=== PATIENT | male | born 1950 | race Caucasian/White ===

== ENCOUNTER 2023-03-10 11:47 | Inpatient (IN) | payer MEDICARE, SELFPAY ==
--- NOTE | ~2023-03-10 | MR_ITS ---
EXAMINATION: MR THORACIC SPINE WITHOUT CONTRAST CLINICAL INFORMATION: Lower extremity rigidity. COMPARISON: None available. TECHNIQUE: MRI of the thoracic spine was obtained using routine sequences without contrast. FINDINGS: The thoracic vertebral bodies demonstrate normal heights and alignment. No compression fractures seen. There is multilevel intervertebral disc height loss including severe disc height loss at T4-T5, T5-T6, T6-T7, and T7-T8. There is accentuation of the normal thoracic kyphosis at the T5-T6 level. No bone marrow edema is seen. The thoracic cord signal appears normal. A few small disc bulges and small disc herniations are noted but none of which results in significant narrowing of the spinal canal. The neural foramina are patent. Several small T2 hyperintense lesions are noted within the liver, presumably cysts. A small splenic cyst is also noted. MR/MR thoracic spine wo con IMPRESSION: No significant narrowing of the spinal canal or neural foramina. No cord signal abnormality. Multilevel intervertebral disc height loss with accentuation of the normal thoracic kyphosis.
--- NOTE | ~2023-03-10 | XR_ITS ---
EXAMINATION: XR CHEST CLINICAL INFORMATION: Pain COMPARISON: None available. TECHNIQUE: 2 views of the chest were obtained. FINDINGS: No significant abnormality is noted involving the heart, lungs, mediastinum, bony thorax or soft tissues. XR/XR chest 2V IMPRESSION: Unremarkable examination.
--- NOTE | ~2023-03-10 | US_ITS ---
EXAMINATION: US ABDOMEN LIMITED CLINICAL INFORMATION: Severe epigastric pain and tenderness. COMPARISON: None available. TECHNIQUE: Real-time imaging of the right upper quadrant abdominal viscera. FINDINGS: PANCREAS: Normal. LIVER: Liver has normal size and contour. 1.4 cm liver cyst has thin septation (image 19). A few other cysts are detected, including 1.4 cm cyst in the superior right lobe. No suspicious lesions. Color Doppler images show normal flow direction within the main portal vein.. GALLBLADDER: Normal. The gallbladder is physiologically distended without evidence of stones, sludge, polyps, wall thickening or pericholecystic fluid. COMMON DUCT: The visualized proximal common duct is 0.2 cm diameter. RIGHT KIDNEY: Normal. No hydronephrosis. No renal calculi or focal parenchymal lesions. The kidney measures 10.5 cm in maximum dimension. FREE FLUID: None. US/US abdomen limited IMPRESSION: * No acute sonographic abnormalities within the examined abdomen. * No evidence of cholelithiasis, cholecystitis or biliary tract obstruction. * Incidentally noted are a few benign hepatic cysts.
--- NOTE | ~2023-03-10 | NM_ITS ---
Exercise Myocardial perfusion study Indication: Chest pain to evaluate for myocardial ischemia Technique: The patient was brought in for an exercise perfusion study on 03/20/2023. Patient performed exercise as per Jose Martin protocol and was injected 25 mCi of sestamibi was given intravenously one target HR was achieved. Images were obtained using the SPECT gamma camera interlaced with the gating device. Images were obtained in supine position. Resting perfusion study was performed on 03/19/2023. Patient was administered 25 mCi of sestamibi intravenously at rest. Images were then obtained in supine position. Images obtained with and without CT attenuation. Total DLP 76 mGy-cm. Images were processed with the software and compared side to side in short axis, horizontal long axis and vertical long axis views. Findings: The stress perfusion study showed non attenuated images show mildly reduced uptake in the basal and mid inferior wall of the LV myocardium. Remainder of the LV myocardium is normally perfused. Attenuation corrected images show minimally reduced uptake in the distal anterior wall of the LV myocardium otherwise normal perfusion.. The gated study shows normal LV systolic function with calculated LVEF of 51%. LV cavity is normal in size. The gated study shows normal systolic wall thickening and contraction of all segments. There is no transient ischemic dilation. Resting study shows intense subdiaphragmatic uptake interfering with inferior wall uptake reducing the specificity of this study. Non attenuated images show normal uptake of radiotracer in all segments of LV myocardium but could be were compensated by subdiaphragmatic uptake. Attenuation corrected images show mildly reduced uptake in the inferoseptal and septal wall of the LV myocardium as well as the apex. Gating at rest reveals normal systolic wall motion with ejection fraction at 49%. The findings are consistent with likely normal myocardial perfusion. NM/NM michael perf SPECT rest & str Impression: 1. Likely normal myocardial perfusion 2. Gated LVEF is 51% 3. Transient ischemic dilatation not present Stress EKG is negative for ischemia
--- NOTE | ~2023-03-10 | MR_ITS ---
EXAMINATION: MR BRAIN AND CERVICAL SPINE WITHOUT AND WITH CONTRAST CLINICAL INFORMATION: Paraparesis. Cognitive decline/parkinsonism. COMPARISON: None available. TECHNIQUE: Multiplanar, multisequence imaging of the brain an cervical spine was performed before and after the intravenous administration of 6 mL of Gadavist. FINDINGS: MR brain: There is no acute infarction, mass, hemorrhage, or extra-axial collection. No abnormal or unexpected intracranial enhancement is seen. The ventricles, sulci, and basilar cisterns are normal in size and configuration. No unexpected brain parenchymal volume loss is seen. The basal ganglia, thalami, and brainstem appear normal. The flow voids of the major intracranial arteries appear intact. The bones and extracranial soft tissues are within normal limits. A subperiosteal lipoma is seen along the right frontal scalp. Cervical spine: The cervical vertebral bodies maintain normal heights and alignment. There is multilevel intervertebral disc height loss. Mild degree of endplate edema is seen at C4-C5 the cervical cord signal appears normal. No abnormal enhancement is seen within the cervical canal. C2-C3: Disc osteophyte complex. No spinal canal or neural foraminal stenosis. C3-C4: Disc osteophyte complex with uncovertebral hypertrophy resulting in mild to moderate spinal canal stenosis and severe bilateral neural foraminal stenosis. C4-C5: Disc osteophyte complex with uncovertebral hypertrophy. Mild to moderate right neural foraminal stenosis. No spinal canal stenosis. C5-C6: Mild disc osteophyte complex with left uncovertebral hypertrophy resulting in severe left neural foraminal stenosis. No spinal canal stenosis. C6-C7: Disc osteophyte complex with right uncovertebral hypertrophy resulting in severe right and mild to moderate left neural foraminal stenosis. C7-T1: Moderate to severe right facet arthropathy. No significant spinal canal or neural foraminal stenosis. MR/MR cervical spine wo/w con IMPRESSION: 1. No intracranial abnormality identified. No unexpected brain parenchymal volume loss. No abnormal enhancement. 2. Multilevel degenerative spondylotic changes resulting in varying degrees of spinal canal and neural foraminal stenosis. Spinal canal stenosis appears mild to moderate at C3-C4. Neural foraminal stenosis is severe bilaterally at C3-C4, severe on the left at C5-C6, and severe on the right at C6-C7.
--- NOTE | ~2023-03-10 | CT_ITS ---
EXAMINATION: CT HEAD WITHOUT CONTRAST CLINICAL INFORMATION: Failure to thrive. Weakness. COMPARISON: None available. TECHNIQUE: Contiguous axial imaging was performed from the skull base to vertex without intravenous administration of contrast. This CT examination was performed using dose optimization techniques as appropriate, variously including the following: *Automated exposure control *Adjustment of mA and/or kV according to patient size (this includes techniques or standardized protocols for targeted exams where dose is matched to indication/reason for exam; i.e. extremities or head) *Use of iterative reconstruction technique DLP: 680 mGy-cm FINDINGS: There is no evidence for an extra-axial collection. There is no evidence for intra-or extra-axial hemorrhage. The ventricles and extra-axial CSF spaces are appropriate. Mustafa-white matter differentiation is normal. No mass, mass effect or infarct is seen. Review of bone windows is normal. Visualized paranasal sinuses, mastoid air cells and middle ears are clear. CT/CT head/brain wo IV con Impression: Normal nonenhanced head CT
[2023-03-10 11:54] VITALS: BP 159/93; PULSE 84; O2SAT 98; BMI 20.1
--- NOTE | 2023-03-10 12:05 | PC.NURSE ---
Patient reports fell x 2 this morning because he was weak and dizzy. denies loc or headstrike. Patient reports that he has lost 30lbs in the last 6 months because he has no appetite d/t abdominal pain. Patient denies SI but states cant keep living with this pain. Denies vomiting but states that he always feels nauseous and when he gets anxious his abdominal pain gets worse.
[2023-03-10 12:07] VITALS: BP 163/86; PULSE 73; PULSE 74; RESP 18; TEMP 37.4
--- NOTE | 2023-03-10 12:30 | ED_ITS ---
HPI - General Adult General Chief complaint: Failure to Thrive Stated complaint: SOB PER EMS Time Seen by Provider: 03/10/23 11:53 Source: patient Mode of arrival: EMS Limitations: no limitations History of Present Illness HPI narrative: patient is a 72-year-old male presents emergency department via EMS for evaluation. His daughter is present at bedside who confirms a majority of the history. When asked patient states he is having epigastric pain that is unbearable and he can take it anymore, it appears very anxious surrounding this. Daughter reports that over the past 3-6 months he has been having poor appetite, minimal oral intake, reported epigastric pain that results in severe anxiety and obsessiveness over this pain. Two months ago he was started on Remeron from the primary care provider, unclear whether this was for appetite stimulation verses ? Dementia, they are awaiting a referral to Neurology. Daughter reports that 1 week ago they were evaluated at [facility] for their concerns around the epigastric pain nausea and anxiety. She reports that he had labs any urine done without any abnormal findings, a CT of the abdomen and pelvis without abnormal findings. He received IV fluids and Zofran with some relief and was discharged home with prescription for Ativan and Zofran. She states that he had a follow-up visit with primary care provider this past Sunday03/05/2023 who advised that patient stop taking the Ativan (despite mild improvement in symptoms on this) his Remeron was discontinued and he was started on Celexa at 10 mg daily. Daughter reports that it is becoming very difficult for herself and her mother to care for him at home due to his overwhelming anxiety and persistent reports of pain. Patient is unable to do much else aside from report pain. Daughter states he has been having generalized weakness, today while walking his legs were feeling weak and he fell onto his knees and lower in himself to the floor. This was witnessed by the daughter and there was no head strike or loss of consciousness. It is difficult to obtain much more history or accurate review of symptoms from patient as he is only fixated on his epigastric pain and anxiety, when asked he denies any SI/HI, drug or alcohol usage Related Data Allergies Allergy/AdvReac Type Severity Reaction Status Date / Time No Known Allergies Allergy Verified 03/10/23 11:57 Review of Systems 2 Review of Systems: Yes all other systems are reviewed and are negative PMFSH Past Medical History Attestation statement: The following information was validated with the patient. Source: old records reviewed Social History Social History Alcohol intake: never Smoked in Last 30 Days: No Use of substances other than those prescribed or required for medical reasons: No Advance Directives: No Advance Directives Information Provided: No Physical Exam ED Vital Signs: Vital Signs - 24 hr 03/10/23 12:07 03/10/23 14:54 03/10/23 15:19 Temperature 99.4 F 97.8 F Pulse Rate 73 78 78 Respiratory Rate 18 18 15 Blood Pressure 163/86 H 171/96 H 184/95 H Pulse Oximetry 98 97 Oxygen Delivery Method Room Air Room Air BMI result Body Mass Index 20.1 Appearance: Alert.?Oriented to person, place and time. No acute distress.?Normal affect. Eyes: Pupils equal, round and reactive to light.? ENT: Pharynx normal.?? Neck: Normal inspection.? Neck supple.?? CVS: Heart sounds normal. Normal heart rate and rhythm.? Pulses normal.?? Respiratory: No respiratory distress.? Lung sounds clear to auscultation bilaterally?? Abdomen: Soft with epigastric tenderness upon palpation Normoactive bowel sounds. No pulsatile mass.?? Skin: Skin warm and dry.? Normal skin color.? Extremities: No lower extremity edema.? No calf ttp? Neuro: Moves all extremities spontaneously. Sensation intact bilaterally. CN II- XII intact. No focal neuro deficits. Course Reevaluation(s) Reevaluation #1: CBC is without leukocytosis left shift or anemia. CMP is overall unremarkable, lipase within normal limits. COVID- 19 and influenza testing are negative . Chest x-ray without evidence of acute cardiopulmonary process. Ultrasound of the right upper quadrant without evidence of acute cholecystitis cholelithiasis explanation for pain. Head CT is pending at this time. Symptoms unrelieved with GI cocktail. Will trial oral lorazepam Time: 14:47 Reevaluation #2: patient signed out to Danyell DIAZ pending CT head, urinalysis, and re- evaluation, Job spoke with patient and his daughter at length, he will likely require PT/ case management evaluation due to weakness an adult failure to thrive for safe disposition. Time: 15:32 Medications Administered Discontinued Medications Generic Name Dose Route Start Last Admin Trade Name Freq PRN Reason Stop Dose Admin Al Hydroxide/Mg Hydroxide 30 ml 03/10/23 12:58 03/10/23 13:05 Magnesium Hydrox/Alum Hydrox 30 Ml Oral.Susp PO 03/10/23 12:59 30 ml ONCE ONE Administration Famotidine 20 mg 03/10/23 12:58 03/10/23 13:05 Famotidine 20 Mg Tablet PO 03/10/23 12:59 20 mg ONCE ONE Administration Lidocaine HCl 15 ml 03/10/23 12:58 03/10/23 13:05 Lidocaine Hcl Viscous 2 % 15 Ml Solution MUCOUS MEM 03/10/23 12:59 15 ml ONCE ONE Administration Lorazepam 1 mg 03/10/23 14:53 03/10/23 15:06 Lorazepam 1 Mg Tablet PO 03/10/23 14:54 1 mg ONCE ONE Administration Medical Decision Making Medical Decision Making MDM Narrative: Patient is a 72-year-old male with past medical history of hypertension, allergic rhinitis, hyperlipidemia, presenting to emergency department via EMS with his daughter for evaluation of epigastric pain and severe anxiety in addition to decreased appetite and unintentional weight loss of 30 lb over the past 6 months. It is difficult to obtain history review of systems for patient, he is fixated on anxiety and epigastric pain. Upon physical examination he does have tenderness over the epigastrium, negative Botello sign. Per daughter's report CT of the abdomen and pelvis was obtained at [facility] with the use of IV contrast without acute abnormal findings. Attempting to obtain records from that visit at this time. Reviewed plan of care with patient, given weakness, near fall today, persistent symptoms will repeat labs, urinalysis, ultrasound of the right upper quadrant to evaluate for cholecystitis/cholelithiasis, will trial GI cocktail prior to administration of anxiolytics and reassess. I had an at length discussion with his daughter as she states ?we can not take it anymore we can take care of him at home?. We discussed indications for hospital admission, versus referral to Case Management/Physical therapy and possible ST are versus LTC. Differential Diagnosis Differential Diagnoses: The differential diagnosis associated with the presentation includes (Anxiety, gastritis, PUD, cholecystitis, cholelithiasis, less likely pancreatitis/diverticulitis/enteritis/obstruction/genitourinary etiology) Admission/Observation Consideration of admission/observation: Escalation of care including admission/observation considered (Considered admission for abdominal pain, see narrative above in course narrative for further detail.) Lab Data MDM Lab Attestation statement: I reviewed the patient's lab results. (See course narrative for further detail) 03/10/23 13:52 03/10/23 13:52 Labs: Lab Results 03/10/23 03/10/23 03/10/23 Range/Units 12:26 13:52 14:55 WBC 6.4 (4.8-10.8) X10*3/uL RBC 5.06 (4.60-5.80) X10*6/uL Hgb 15.1 (14.0-18.0) g/dl Hct 43.6 (42.0-52.0) % MCV 86.2 (80.0-98.0) fL MCH 29.8 (27.0-33.0) pg MCHC 34.6 (31.0-36.0) g/dl RDW 12.9 (11.0-16.0) % Plt Count 219 (160-400) X10*3/uL MPV 8.9 L (9.4-12.4) fL Immature Gran % (Auto) 0.3 (0.0-0.4) % Neut % (Auto) 71.0 (45-73) % Lymph % (Auto) 16.7 L (20-40) % Pettis % (Auto) 11.5 H (2-11) % Eos % (Auto) 0.2 (0-4) % Baso % (Auto) 0.3 (0-2) % Lymph # (Auto) 1.1 L (1.2-4.9) X10*3/uL Pettis # (Auto) 0.7 (0.1-1.2) X10*3/uL Eos # (Auto) 0.0 (0.0-0.4) X10*3/uL Baso # (Auto) 0.0 (0.0-0.2) X10*3/uL Abs Immat Gran (auto) 0.02 (0.00-0.03) X10*3/uL Absolute Neuts (auto) 4.6 (2.0-8.3) x10*3/uL Absolute Nucleated RBC 0.000 (0.0-0.012) X10*3/uL Nucleated RBC % (auto) 0.0 (0.0-0.2) /100WBC PT 11.9 (11.1-13.3) SEC INR 1.0 (0.9-1.1) Sodium 139 (135-145) mmol/L Potassium 3.9 (3.3-5.1) mmol/L Chloride 102 (96-108) mmol/L Carbon Dioxide 28 (22-29) mmol/L Anion Gap 13 (12-20) BUN 17 H (9-16) mg/dL Creatinine 0.98 (0.5-1.4) mg/dL Estim Creat Clear Calc 58.5 Estimated GFR > 60 Random Glucose 109 (60-115) mg/dL Calcium 9.6 (8.4-10.2) mg/dL Magnesium 2.3 (1.6-2.6) mg/dL Total Bilirubin 0.6 (0.0-1.0) mg/dL AST 18 (5-37) U/L ALT 12 (0-40) U/L Alkaline Phosphatase 60 (39-117) U/L Troponin I High Sens 2.7 (<3.5-35.0) ng/L B-Natriuretic Peptide Cancelled Total Protein 7.1 (6.5-8.0) g/dL Albumin 4.4 (3.5-5.0) g/dL Lipase 16 (8-78) U/L Urine Color Yellow Urine Appearance Clear Urine pH 6.0 (5.0-9.0) Ur Specific Sam[place] 1.025 (1.005-1.025) Urine Protein Negative (Neg-Trace) mg/dL Urine Glucose (UA) Negative (Negative) mg/dL Urine Ketones 15 (Negative) mg/dL Urine Blood Negative (Negative) Urine Nitrite Negative (Negative) Ur Leukocyte Esterase Negative (Negative) COVID-19 (DELIA) Negative (Negative) COVID-19 Clin Com See Note Influenza Type A (SIXTO) Negative (Negative) Influenza Type B (SIXTO) Negative (Negative) Influenza A & B Note See Note Independent Interpretation I performed an independent interpretation of an: Ultrasound Radiology Impression Discussion of test interpretation with radiology: I have reviewed the radiologist's reading. Radiologist Impression: XR/XR chest 2V IMPRESSION: Unremarkable examination. abdominal ultrasound is without acute sonographic abnormality no evidence of cholecystitis or cholelithiasis, incidental benign hepatic cysts, no clear explanation for epigastric pain. Independent Historian Clinical information obtained from an independent historian. History obtained from or confirmed by: EMS and Other (Daughter present at bedside who confirms history) Tests considered The following testing was considered but not selected: Considered CT abdomen and pelvis, imaging obtained 1 week ago at outside hospital, currently with no acute changes in symptoms , CT imaging deferred at this time Discharge Plan Discharge Clinical Impression: Anxiety, Abdominal pain, epigastric, Adult failure to thrive Patient Disposition: Still a Patient
[2023-03-10 12:47] LABS: COVID-19 Test Negative (Negative); IDNOW Serial# 08D9AD1C
[2023-03-10 12:48] LABS: IDNOW Serial# BCCEAD1C; Influenza A Negative (Negative); Influenza B2 Negative (Negative)
[2023-03-10] MEDS: Famotidine 20 MG TABLET PO (13:05)
[2023-03-10] MEDS: Magnesium Hydrox/Alum Hydrox 30 ML ORAL.SUSP PO (13:05)
[2023-03-10] MEDS: Lidocaine HCl Viscous 2 % 15 ML SOLUTION MUCOUS MEM (13:05)
[2023-03-10 13:56] LABS: MANUAL DIFF FLAG NO
[2023-03-10 13:57] LABS: Basophils Percent Auto 0.3 % (0-2); Eosinophils Percent Auto 0.2 % (0-4); Hematocrit 43.6 % (42.0-52.0); Hemoglobin 15.1 g/dl (14.0-18.0); Imm Gran Abs Auto 0.02 X10*3/uL (0.00-0.03); Imm Gran Pct Auto 0.3 % (0.0-0.4); Lymphocytes Absolute Auto 1.1 X10*3/uL (1.2-4.9); Lymphocytes Percent Auto 16.7 % (20-40); Mean Corpuscular HGB Conc 34.6 g/dl (31.0-36.0); Mean Corpuscular Hemoglobin 29.8 pg (27.0-33.0); Mean Corpuscular Volume 86.2 fL (80.0-98.0); Mean Platelet Volume 8.9 fL (9.4-12.4); Monocytes Absolute Auto 0.7 X10*3/uL (0.1-1.2); Monocytes Percent Auto 11.5 % (2-11); Neutrophils Absolute Auto 4.6 x10*3/uL (2.0-8.3); Platelet Count 219 X10*3/uL (160-400); Red Blood Count 5.06 X10*6/uL (4.60-5.80); Red Cell Distribution Width 12.9 % (11.0-16.0); White Blood Count 6.4 X10*3/uL (4.8-10.8)
[2023-03-10 14:09] LABS: Prothrombin Time 11.9 SEC (11.1-13.3)
[2023-03-10 14:17] LABS: Alanine Aminotransferase 12 U/L (0-40); Albumin Level 4.4 g/dL (3.5-5.0); Alkaline Phosphatase 60 U/L (39-117); Anion Gap 13 (12-20); Aspartate Amino Transferase 18 U/L (5-37); Bilirubin Total 0.6 mg/dL (0.0-1.0); Blood Urea Nitrogen 17 mg/dL (9-16); Calcium 9.6 mg/dL (8.4-10.2); Carbon Dioxide 28 mmol/L (22-29); Chloride 102 mmol/L (96-108); Creatinine Clr Calc Pharmacy 58.5; Estimated Glomerular Filt Rate > 60; Glucose Random 109 mg/dL (60-115); Lipase 16 U/L (8-78); Magnesium 2.3 mg/dL (1.6-2.6); Potassium 3.9 mmol/L (3.3-5.1); Sodium 139 mmol/L (135-145); Total Protein 7.1 g/dL (6.5-8.0)
--- NOTE | 2023-03-10 14:18 | PC.NURSE ---
Patient reports short term relief from oral medications for stomach pain however reports pain has now returned
--- NOTE | 2023-03-10 14:46 | PC.NURSE ---
Patient reports feeling sob , 98% on RA. Patient reports feeling anxious but unable to state what is causing the anxiety
--- NOTE | 2023-03-10 14:50 | ECG_ITS ---
Test Reason : CHEST PAIN Blood Pressure : / mmHG Vent. Rate : 089 BPM Atrial Rate : 089 BPM P-R Int : 154 ms QRS Dur : 096 ms QT Int : 384 ms P-R-T Axes : 061 -75 076 degrees QTc Int : 467 ms Normal sinus rhythm Incomplete right bundle branch block Left anterior fascicular block Abnormal ECG No previous ECGs available Referred By: Janene Mota Electronically Signed By:SHERON VARELA MD
[2023-03-10 14:54] VITALS: BP 171/96; PULSE 78; RESP 18; O2SAT 98
[2023-03-10 15:01] LABS: Appearance Urine Clear; Color Urine Yellow; Glucose Urine UA Negative (Negative); Leukocyte Esterase Urine Negative (Negative); Nitrite Urine Negative (Negative); Specific Gravity - Urine 1.025 (1.005-1.025); Urine Blood Negative (Negative); Urine Ketones 15 mg/dL (Negative); Urine Protein Negative (Neg-Trace)
[2023-03-10] MEDS: LORazepam 1 MG TABLET PO (15:06)
[2023-03-10 15:13] LABS: Troponin-I High Sensitivity 2.7 ng/L (<3.5-35.0)
[2023-03-10 15:19] VITALS: BP 184/95; PULSE 78; RESP 15; TEMP 36.6; O2SAT 97
--- NOTE | 2023-03-10 16:48 | PC.NURSE ---
Patient reports feels great states ativan made his stomach pain go away. Family at bedside
[2023-03-10 18:18] VITALS: BP 134/75; PULSE 80; RESP 16; TEMP 36.8; O2SAT 97
--- NOTE | 2023-03-10 18:45 | MHC.EDTECH ---
Dinner tray given
[2023-03-10 19:47] VITALS: BP 143/77; PULSE 79; RESP 18; TEMP 36.8; O2SAT 95
--- NOTE | 2023-03-10 19:50 | MHC.EDTECH ---
This tech took over care at 1900, hourly rounds and vitals completed,Belonging list completed and copy placed in chart. Ice water giving per request of patient. This tech called for a hospital bed awaiting arrival and call santacruz within reach.
--- NOTE | 2023-03-10 20:51 | MHC.EDTECH ---
Ambulated patient to bathroom urinated a moderate amount. pt has a steady gait. Hospital bed placed at this time for comfort. Patient is resting comfortably at this time and call noam thomas. Bed alarm set for safety
--- NOTE | 2023-03-10 22:34 | MHC.EDTECH ---
Assisted patient to bathroom with a steady gait,patient urinated and is requesting something to help him sleep. FELICIANO Ramírez made aware.
[2023-03-10] MEDS: hydrOXYzine HCL 25 MG TABLET PO (23:45)
--- NOTE | 2023-03-10 23:48 | PC.NURSE ---
Pt stating he was having difficulty with sleep. Discussed with provider and meds given per MAR.
--- NOTE | 2023-03-11 01:15 | PC.NURSE ---
Pt given meds per MAR for elevated BP, aware.
--- NOTE | 2023-03-11 01:55 | MHC.EDTECH ---
Hourly rounds completed,patient is sleeping at this time.
[2023-03-11] MEDS: Dicyclomine HCl 10 MG CAPSULE 20 MG PO (02:26)
[2023-03-11 04:00] VITALS: RESP 18
--- NOTE | 2023-03-11 04:10 | MHC.EDTECH ---
Hourly rounds completed,patient is sleeping at this time and call santacruz within reach.
[2023-03-11] MEDS: ondansetron HCL 4 MG/2 ML VIAL IVPUSH (04:57)
--- NOTE | 2023-03-11 07:28 | PHA.MEDREC ---
Pharmacy Consult ? Medication Reconciliation Pharmacy has reviewed the medication reconciliation completed by nursing.
[2023-03-11 07:34] VITALS: BP 150/85; PULSE 74; RESP 16; TEMP 37.2; O2SAT 96
--- NOTE | 2023-03-11 08:04 | PC.NURSE ---
pt is currently asleep, respirations even and unlabored
[2023-03-11 08:19] VITALS: O2SAT 96
--- NOTE | 2023-03-11 08:19 | PC.NURSE ---
Addendum entered by Sally Suqires 03/11/23 08:21: pt did not want to eat breakfast states he is not hungry Original Note: pt is alert and oriented, skin pwd, respirations even and unlabored, pt is reporting and pain as an dull ache and is requesting Ativan Ativan is the only thing that helps .
[2023-03-11 08:59] VITALS: BP 166/93; PULSE 82; RESP 18; O2SAT 96
[2023-03-11] MEDS: Metoprolol Tartrate 25 MG TABLET PO (09:00)
[2023-03-11] MEDS: Escitalopram Oxalate 5 MG TABLET PO (09:01)
--- NOTE | 2023-03-11 09:06 | PC.NURSE ---
pt;s and the pt reports that the is no longer taking the singular because his allergies cleared up, singular not given
--- NOTE | 2023-03-11 10:23 | MHC.CM.PN ---
CM RECEIVED ED CONSULT FROM PROVIDER. CM MET WITH PT AND AT BEDSIDE IN ED. PT LIVES WITH SPOUSE. DAUGHTERS ARE SUPPORTIVE. PT HAVING MORE DIFFICULTY WITH ADL'S AND MOBILITY DUE TO WEAKNESS AND SEVERE MELANCHOLY PER SPOUSE. A PSYCHIATRIC CONSULT WELL A P.T. CONSULT HAVE BEEN ORDERED. PER SPOUSE, PCP (DR. FIERRO WITH MOBILE) HAD ORDERED A CONSULT WITH [facility] IN THE [facility] BUT THEY ONLY CAME ONCE AND DID NOT FEEL THEY WERE RESPONSIVE. PT IS INDEPENDENT WITH MOBILITY AT BASELINE BUT EXPERIENCING FALLS OF LATE. + HCP DONE. PT ALERT AND ORIENTED X 3 AND ABLE TO MAKE NEEDS KNOWN. CM WILL CONTINUE TO FOLLOW FOR EVOLVING PLAN.
--- NOTE | 2023-03-11 10:53 | PC.NURSE ---
assumed care of this pt at 1000. pt brought over from er 3 accompanied by his at his bedside. no complaints at this time. will continue to observe.
[2023-03-11] MEDS: Ondansetron ODT 4 MG TAB.RAPDIS TRANSLINGU (12:08)
--- NOTE | 2023-03-11 12:45 | PC.NURSE ---
pt requested zofran for nausea. sublingual zofran given as document. will follow up.
[2023-03-11] MEDS: LORazepam 1 MG TABLET PO ×2 (13:09→23:58)
--- NOTE | 2023-03-11 13:10 | PC.NURSE ---
this ticket writer was called into room by pt family member in request for something for anxiety. Stating when he gets anxious he feels a phantom pain in his abdomen. Pt medicated with PRN ativan. Pt family member reporting he did not like atarax as it made him feel sleepy
--- NOTE | 2023-03-11 16:43 | MHC.EDTECH ---
brought patient a pitcher of ice.
--- NOTE | 2023-03-11 18:08 | PC.NURSE ---
pt fed lunch and dinner by his . his reported that he ate about 50% of both meals. his remains at his bedside
[2023-03-11] MEDS: Atorvastatin Calcium 10 MG TABLET PO (20:18)
[2023-03-11 20:57] VITALS: BP 134/85; PULSE 67; RESP 16; TEMP 36.9; O2SAT 97
--- NOTE | 2023-03-11 21:00 | MHC.EDTECH ---
pt wnt home , pt placed on camera for safety, vss, resting quietly
--- NOTE | 2023-03-11 21:07 | PC.NURSE ---
pt assessed, took medications whole with water per JUL. bedalarm set and camera in use for safety
--- NOTE | 2023-03-11 23:53 | PC.NURSE ---
pt awake, ambulate to bathroom with 1 max assist
--- NOTE | 2023-03-11 23:59 | PC.NURSE ---
pt requested Ativan, medicated per MAR
[2023-03-12] MEDS: Ondansetron ODT 4 MG TAB.RAPDIS TRANSLINGU (05:56)
--- NOTE | 2023-03-12 05:57 | PC.NURSE ---
pt c/o nausea no vomiting, medicated per Mar
[2023-03-12 05:59] VITALS: BP 132/69; PULSE 86; RESP 14; TEMP 36.6; O2SAT 96
[2023-03-12 07:53] VITALS: BP 140/83; PULSE 68; RESP 18; TEMP 36.9; O2SAT 95
[2023-03-12] MEDS: Escitalopram Oxalate 5 MG TABLET PO (07:56)
[2023-03-12] MEDS: Montelukast Sodium 10 MG TABLET PO (07:56)
[2023-03-12] MEDS: Metoprolol Tartrate 25 MG TABLET PO (07:56)
[2023-03-12 08:44] VITALS: BP 140/83; PULSE 68; O2SAT 95
[2023-03-12] MEDS: LORazepam 1 MG TABLET PO ×2 (09:25→19:30)
--- NOTE | 2023-03-12 11:06 | MHC.CM.ED ---
Patient remains in ER overflow. Physical therapy eval completed. Home with services is recommended. Psych consult is pending. Will continue to follow for CM needs.
--- NOTE | 2023-03-12 13:02 | P.CNPS_ITS ---
History of Present Illness Date of Service: 03/12/2023 Chief Complaint: SOB PER EMS Reason for Consult: anxiety Requesting physician: Milvia Sheets Discussed with referring provider: Yes Sources of Information: patient interviewed, chart reviewed and crisis/core team assessment reviewed HPI Narrative: Mr. Vegas is a 72 year-old male who was brought in by family due to increase abdominal/epigastric pain, nausea, poor appetite, weight loss of more than 30 Lbs in past 3 months. Accompanying anxiety. Pt had abdominal US- unremarkable. CBC without leukocytosis. CMP no electrolyte abnormality. Pt had combination of IV ppi, zofran. Some relief from ativan. He was recently seen at [facility] ED- abdominal CT completed but results not available. Head CT completed here- unremarkable. Psychiatry consult for severe anxiety. Pt seen with and his daughter by himself. Family report physical and mental decline in past 3 months. Pt stopped driving due to dizziness. Pt later presented with epigastric pain (apparently severe), nausea, periods of constipation, very poor appetite to the point that he has lost 30 Lbs in past 3 months. He has seen his PCP, awaiting to be seen by GI specialist. No endoscopy done. He had colonoscopy 2 years ago. Pt reports feeling slightly better today. He reports he feels physical relief from ativan in epigastric/abdominal area after taking ativan. He reports feeling more relax. He denies SI/HI. no VH/AH. No delusional content noted or reported. Family also report concern in terms of memory and cognition- we discussed completing MOCA/ACL when pt not in physical distres. His PCP had prescribed remeron after pt had episode of epigastric pain, and later presenting as more anxious preoccupied with recurrence of pain and nausea. However, pt got worse physically and from his anxiety. Remeron was d/rosangela. He was recently started on citalopram 10mg po daily (currently receiving lexapro 5mg po daily as we don't have celexa on formulary). Pt reports he was able to eat much better today, which is unusual for him for ther past 3 months as he is not having pain. Diagnostics Vital Signs (24Hr): Vital Signs - 24 hr 03/11/23 20:57 03/12/23 05:59 03/12/23 07:53 Temperature 98.4 F 97.9 F 98.5 F Pulse Rate 67 86 68 Respiratory Rate 16 14 18 Blood Pressure 134/85 132/69 140/83 H Pulse Oximetry 97 96 95 Oxygen Delivery Method Room Air Room Air Room Air 03/12/23 08:44 Temperature Pulse Rate 68 Respiratory Rate Blood Pressure 140/83 H Pulse Oximetry 95 Oxygen Delivery Method BMI result Body Mass Index 20.1 Labs 03/10/23 13:52 03/10/23 13:52 Labs: Laboratory Results - last 48 hr 03/10/23 03/10/23 13:52 14:55 PT 11.9 INR 1.0 Sodium 139 Potassium 3.9 Chloride 102 Carbon Dioxide 28 Anion Gap 13 BUN 17 H Creatinine 0.98 Estim Creat Clear Calc 58.5 Estimated GFR > 60 Random Glucose 109 Calcium 9.6 Magnesium 2.3 Total Bilirubin 0.6 AST 18 ALT 12 Alkaline Phosphatase 60 Troponin I High Sens 2.7 B-Natriuretic Peptide Cancelled Total Protein 7.1 Albumin 4.4 Lipase 16 Urine Color Yellow Urine Appearance Clear Urine pH 6.0 Ur Specific [place] 1.025 Urine Protein Negative Urine Glucose (UA) Negative Urine Ketones 15 Urine Blood Negative Urine Nitrite Negative Ur Leukocyte Esterase Negative Imaging Radiology Impressions: ITS Impressions Head CT 03/10/23 13:17 Impression: Normal nonenhanced head CT Chest X-Ray 03/10/23 13:20 IMPRESSION: Unremarkable examination. Abdomen Ultrasound 03/10/23 13:45 IMPRESSION: * No acute sonographic abnormalities within the examined abdomen. * No evidence of cholelithiasis, cholecystitis or biliary tract obstruction. * Incidentally noted are a few benign hepatic cysts. Mental Status Exam Mental Status Exam Narrative: Appearance: mask-like facial expression, wearing hospital gown, fair hygiene, in NAD Behavior:cooperative Psychomotor: no resting tremors, no agitation or retardation noted Speech: clear, some delayed in response, spontaneous TP: linear TC: feeling better Mood: today is a good day Affect: congruent, with somewhat of a mask-like expression SI: denies HI: denies VH/AH:none Delusions: none Insight/judgment: fair x 2 Memory/cog: alert, oriented x 3. pending MOCA Medications Medications Current Medications Atorvastatin Calcium (Atorvastatin Calcium 10 Mg Tablet) 10 mg PO BEDTIME [facility] Last Admin: 03/11/23 20:18 Dose: 10 mg Escitalopram Oxalate (Escitalopram Oxalate 5 Mg Tablet) 5 mg PO DAILY [facility] Last Admin: 03/12/23 07:56 Dose: 5 mg Lorazepam (Lorazepam 1 Mg Tablet) 1 mg PO TID PRN PRN Reason: anxiety Last Admin: 03/12/23 09:25 Dose: 1 mg Metoprolol Tartrate (Metoprolol Tartrate 25 Mg Tablet) 25 mg PO DAILY [facility]; Protocol Last Admin: 03/12/23 07:56 Dose: 25 mg Montelukast Sodium (Montelukast Sodium 10 Mg Tablet) 10 mg PO DAILY [facility] Last Admin: 03/12/23 07:56 Dose: 10 mg Ondansetron HCl (Ondansetron Odt 4 Mg Tab.Rapdis) 4 mg TRANSLINGU Q6H PRN PRN Reason: nausea/vomiting Last Admin: 03/12/23 05:56 Dose: 4 mg Allergies Allergies Allergy/AdvReac Type Severity Reaction Status Date / Time No Known Allergies Allergy Verified 03/10/23 11:57 Assessment & Plan Assessment & Plan (1) Anxiety: Status: Acute Code(s): F41.9 - Anxiety disorder, unspecified Plan MR. Vegas is a 72 year-old male who has been presenting with epigastric pain, poor appetite, severe anxiety in response to fear of recurrence of GI symptoms(pain), constipation. He had abdominia US- unremarkable. CBC also grossly unremarkable. Pt had ativan which he reports having some physical effect on abdominal pain- question of whether relief may be related to physical effect of ativan on smooth muscle in cases like gastroparesis. Pt is awaiting further medical work up from GI including endoscopy. PLAN 1. Recommend pt seen by GI for diagnostic clarification 2. for now continue ativan 1mg po TID PRN anxiety- but note that patient reports physical benefits of medication when having epigastric/abdomminal pain 3. continue lexapro 5mg po daily. Total time managing care of this patient today ____ minutes.
--- NOTE | 2023-03-12 13:04 | PC.NURSE ---
PT SEEN BY PSYCH ADVANCED PRACTICE PROFESSIONAL (IVETTE). PT/DAUGHTER AWARE OF PLAN OF CARE.
--- NOTE | 2023-03-12 13:09 | PC.NURSE ---
BED ALARM OFF PER /DAUGHTER. PT WAS AMBULATED 100FT WITH 2 ASSIST. CAMERA REMAINS IN PLACE.
--- NOTE | 2023-03-12 13:25 | PC.NURSE ---
BED ALARM ON AND CONTINUE WITH CAMERA. AND DAUGHTER HAS LEFT FOR THE AFTERNOON TO RETURN LATER.
[2023-03-12 15:31] VITALS: BP 132/78; PULSE 77; RESP 16; TEMP 36.8; O2SAT 98
--- NOTE | 2023-03-12 16:32 | MHC.EDTECH ---
Patient blood drawn and vitals taken ,pt here visiting ,Reading Pt a book .
[2023-03-12 16:51] LABS: Estimated Average Glucose 108 mg/dL; Hemoglobin A1c % 5.4 % (<6.0)
[2023-03-12 17:16] LABS: Cholesterol 145 mg/dL (<200); HDL Cholesterol 62 mg/dL (>40); LDL Cholesterol Calculated 67 mg/dL (<100); Triglycerides 82 mg/dL (<150)
[2023-03-12 17:31] LABS: TSH reflex Free T4 0.81 uIU/mL (0.32-4.0)
[2023-03-12 17:44] LABS: Folate 11.7 ng/mL (> or = 4.0); Vitamin B12 396 pg/mL (200-900)
--- NOTE | 2023-03-12 18:34 | PC.NURSE ---
Patient family stating that patient is having some drainage coming from left eye and that the eye generally looks gunky. Left eye assessed and no increase in redness noted at this time, patient denies any pain to the area, some drainage is noted. Provider messaged regarding issue.
--- NOTE | 2023-03-12 18:56 | MHC.EDTECH ---
Patient walk Pt to bathroom ,Pt void large amount of urine ,Pt help Patient to get clean up ,pt ate 100 % of dinner and drank 360 ml fluids .
[2023-03-12 19:23] VITALS: BP 126/72; PULSE 74; RESP 16; TEMP 36.2; O2SAT 97
[2023-03-12] MEDS: Atorvastatin Calcium 10 MG TABLET PO (19:30)
--- NOTE | 2023-03-12 20:39 | MHC.EDTECH ---
Pt was a 1 asst to bathroom and back to bed ,Pt voided large amount of urine ,bed alarm on bed ,call santacruz within Pt reach, and telle sitter in room .
[2023-03-13] MEDS: Ondansetron ODT 4 MG TAB.RAPDIS TRANSLINGU ×3 (04:30→17:10)
[2023-03-13 04:51] VITALS: BP 118/76; PULSE 85; RESP 16; TEMP 36.4; O2SAT 94
[2023-03-13] MEDS: LORazepam 1 MG TABLET PO ×2 (05:47→22:24)
--- NOTE | 2023-03-13 06:16 | PC.NURSE ---
Assumed care of pt 19:00 (03/12). Pt is A&Ox3, forgetful at times. Pt requested prn ativan x2, prn zofran x1 this shift, given as ordered and appropriate with +effect. Otherwise denies acute complaints. VSS. Pt sleeping in bed the majority of the night as observed on hourly rounding. Breathing is even and unlabored without distress. Denies pain. Standby assist to bathroom. Bed alarm on and safety measures in place. In-room camera continues.
[2023-03-13 09:14] VITALS: BP 128/78; PULSE 80; RESP 15; TEMP 36.4; O2SAT 98
[2023-03-13] MEDS: Metoprolol Tartrate 25 MG TABLET PO (10:00)
[2023-03-13] MEDS: Escitalopram Oxalate 5 MG TABLET PO (10:00)
--- NOTE | 2023-03-13 12:48 | P.CNPS_ITS ---
History of Present Illness Date of Service: 03/13/2023 Chief Complaint: SOB PER EMS Reason for Consult: f/u Requesting physician: Milvia Sheets Discussed with referring provider: Yes Sources of Information: patient interviewed, chart reviewed and crisis/core team assessment reviewed HPI Narrative: Interim Hx: pt reports today is not a good day. He reports he had epigastric pain, not relieved by zofran. He received pepcid later. He also had ativan which he states helped a bit with but now again in pain. He denies SI/HI. by his side. We discussed changes in past few months- including him not feeling like he could drive (visuospatial impairments a long with dizziness). He has been presenting with shuffling gait, when walking arms minimally move, limited eye blinking, no tremors noted. He later had epigastric pain, constipation- which reports he was then overusing laxative trying to have daily BM, no vomiting, but severe appetite loss with weight loss of more than 30Lbs in the past 3 months. He has presented as more anxious, worried about pain coming back or affecting his appetite once again. He reports feeling nausea, no vomiting. He also presents with mask like expression. MOCA completed --> significant impairment in visuospatial/executive function, recall. Orientation, language, attention fairly intact. Diagnostics Vital Signs (24Hr): Vital Signs - 24 hr 03/12/23 15:31 03/12/23 19:23 03/13/23 04:51 Temperature 98.2 F 97.2 F 97.6 F Pulse Rate 77 74 85 Respiratory Rate 16 16 16 Blood Pressure 132/78 126/72 118/76 Pulse Oximetry 98 97 94 Oxygen Delivery Method Room Air Room Air Room Air 03/13/23 09:14 Temperature 97.5 F Pulse Rate 80 Respiratory Rate 15 Blood Pressure 128/78 Pulse Oximetry 98 Oxygen Delivery Method Room Air BMI result Body Mass Index 20.1 Labs 03/10/23 13:52 03/10/23 13:52 Labs: Laboratory Results - last 48 hr 03/12/23 16:31 Estimat Average Glucose 108 Hemoglobin A1c % 5.4 Triglycerides 82 Cholesterol 145 LDL Cholesterol, Calc 67 HDL Cholesterol 62 Vitamin B12 396 Folate 11.7 TSH 0.81 Imaging Radiology Impressions: ITS Impressions Head CT 03/10/23 13:17 Impression: Normal nonenhanced head CT Chest X-Ray 03/10/23 13:20 IMPRESSION: Unremarkable examination. Abdomen Ultrasound 03/10/23 13:45 IMPRESSION: * No acute sonographic abnormalities within the examined abdomen. * No evidence of cholelithiasis, cholecystitis or biliary tract obstruction. * Incidentally noted are a few benign hepatic cysts. Medications Medications Current Medications Atorvastatin Calcium (Atorvastatin Calcium 10 Mg Tablet) 10 mg PO BEDTIME [facility] Last Admin: 03/12/23 19:30 Dose: 10 mg Escitalopram Oxalate (Escitalopram Oxalate 5 Mg Tablet) 5 mg PO DAILY [facility] Last Admin: 03/13/23 10:00 Dose: 5 mg Famotidine (Famotidine 20 Mg Tablet) 20 mg PO DAILY [facility] Lorazepam (Lorazepam 1 Mg Tablet) 1 mg PO TID PRN PRN Reason: anxiety Last Admin: 03/13/23 05:47 Dose: 1 mg Metoprolol Tartrate (Metoprolol Tartrate 25 Mg Tablet) 25 mg PO DAILY [facility]; Protocol Last Admin: 03/13/23 10:00 Dose: 25 mg Montelukast Sodium (Montelukast Sodium 10 Mg Tablet) 10 mg PO DAILY [facility] Last Admin: 03/13/23 10:01 Dose: Not Given Omeprazole (Omeprazole 20 Mg Capsule.Dr) 20 mg PO DAILY [facility] Ondansetron HCl (Ondansetron Odt 4 Mg Tab.Rapdis) 4 mg TRANSLINGU Q6H PRN PRN Reason: nausea/vomiting Last Admin: 03/13/23 10:51 Dose: 4 mg Allergies Allergies Allergy/AdvReac Type Severity Reaction Status Date / Time No Known Allergies Allergy Verified 03/10/23 11:57 Assessment & Plan Assessment & Plan (1) MDD (major depressive disorder), single episode with atypical features: Status: Acute Code(s): F32.9 - Major depressive disorder, single episode, unspecified (2) Mild cognitive disorder: Status: Acute Code(s): F09 - Unspecified mental disorder due to known physiological condition (3) MARTY (generalized anxiety disorder): Status: Acute Code(s): F41.1 - Generalized anxiety disorder Plan Mr. Vegas is a 72 year-old male who was brought by family due to severe anxious mood exacerbated by GI symptoms of unclear etiology including epigastric pain, nausea, weight loss of more than 30Lbs in past 3 months. He also presents with gait abnormalities- shuffling gait, limited movement of limbs when walking, decrease eye blinking no tremors, mask-like facial expression, MOCA does show some cognitive impairment/decline with significant impairment in executive function/visuospatial skills, and recall (0/5) with fairly intact orientation, attention and language (repetition/fluency and naming). PLAN 1. Pending consult from GI to further complete work up on GI symptoms and 30lbs weight loss 2. May need assessment for movement disorder r/o parkinson's disease parkinson plus pathology 3. continue ativan 1mg po TID prn, contiue lexapro 5mg po daily (will gradually titrate as increase serotonin can worsen some of GI symptoms). 4. Plan to transfer to [facility] for further management of anxiety and depression once bed available. Total time managing care of this patient today ____ minutes.
[2023-03-13] MEDS: Famotidine 20 MG TABLET PO (12:58)
[2023-03-13] MEDS: LORazepam 0.5 MG TABLET PO (12:58)
[2023-03-13] MEDS: Omeprazole 20 MG CAPSULE.DR PO (12:58)
[2023-03-13 16:19] VITALS: BP 145/90; PULSE 74; RESP 15; TEMP 36.5; O2SAT 97
--- NOTE | 2023-03-13 16:40 | PC.NURSE ---
Care assumed [id number]: Patient alert and oriented x 4, though forgetful at times. Received PRN Zofran x 1 for nausea and one time order of 0.5mg PO Ativan given with lunch for anxiety. Denies pain or shortness of breath. Breathing appeared easy and unlabored on room air. Ambulates well to bathroom. Care handed off to Reema WIGGINS.
--- NOTE | 2023-03-13 18:56 | MHC.SHP ---
Pre-Procedural Eval Section A Date of Service: 03/14/23 The patient is an INPATIENT: Yes The History & Physical has been completed within 30 days and I have reviewed it.: Yes Section B Chief Complaint: SOB PER EMS Allergies: Allergies Allergy/AdvReac Type Severity Reaction Status Date / Time No Known Allergies Allergy Verified 03/10/23 11:57 Plan I have reviewed the history and physical and performed a pertinent physical examination on my patient. No changes have occurred unless specified. Time Spent With Patient Time: Total time managing care of this patient today ____ minutes.
--- NOTE | 2023-03-13 18:57 | PM.EVENT ---
Event Note Date of Service: 03/13/23 Event Note: GI Consult-Full note dictated. History via patient, , EMR, and RN. Imp: LUQ abdominal pain, nausea, anorexia, and weight loss in the setting of anxiety and depression. His w/u has been negative including a CT scan at [facility], an U/S, and labs. He has been on longstanding omeprazole OTC prior to these sx. He has never had an EGD, but has had three previous colonoscopies. He denies NSAIDs, tobacco, and alcohol. Diff dx: Need to R/O organic pathology such as UGI neoplasm, PUD, gastritis, or celiac disease. Rec: EGD with MAC on 03/[address] Ortiz. Full consent has been obtained, including risks of bleeding and perforation. Obtain copy of CT report from [facility]. Check sed rate and CRP. If the EGD is negative then focus on underlying psych issues to see if that can help improve things for him. D/W patient and in detail. They are comfortable with this plan. Thanks. Time Spent With Patient Time: Total time managing care of this patient today ____ minutes.
--- NOTE | 2023-03-13 20:08 | CONS_ITS ---
DATE OF SERVICE: 03/13/2023 REASON FOR CONSULTATION: Abdominal pain, nausea, anorexia, and weight loss. HISTORY OF PRESENT ILLNESS: This has been obtained from the patient, his , the medical record, and his RN. The patient is a 72-year-old healthy male, who has experienced an approximately 35-pound weight loss over the past 6 or 7 months. This has been associated with a nearly constant nausea and an intermittent left upper quadrant pain that seems to be mostly associated with anxiety. The patient describes a long-standing history of some anxiety, but this has been worsening of late, along with depression. He did have an ER visit at [facility] about a week or [address] ago with a negative CT scan of the abdomen by report, as well as normal laboratories. He was subsequently sent home. He was scheduled to see a chemical engineering professor next week for an upper endoscopy as scheduled by his PCP. However, due to worsening complaints of both the anxiety and depression, as well as the abdominal pain and weight loss, he came here for further evaluation. He was seen by Psychiatry and is currently awaiting bed availability on the geriatric psychiatric unit. The patient denies any vomiting. He denies any significant heartburn or dysphagia. His bowel movements have been somewhat loose, but without melena nor hematochezia. There have been no signs of jaundice, fevers, nor any urinary symptoms. The patient apparently has been on long standing [id number] omeprazole for years to treat any stomach upset. He has never had an upper endoscopy, but has had 3 colonoscopies, most recently about [address] Kumar[address] His 1st colonoscopy reportedly did show some polyps, but he has had subsequently 2 negative colonoscopies including the one 3 years ago. The patient apparently had been using some MiraLAX to facilitate bowel movements as he felt that not having a bowel movement would also contribute to the abdominal pain. He does not smoke, use alcohol, nor use any significant amounts of aspirin or NSAIDs. Since January he has been on various medications try to help the anxiety and depression, including Remeron and citalopram, but without any improvement. MEDICATIONS AT HOME: Include; citalopram, lorazepam, metoprolol, Remeron, Singulair, ondansetron, omeprazole, and simvastatin. MEDICATIONS HERE IN THE HOSPITAL: Include; atorvastatin, escitalopram, famotidine, lorazepam, metoprolol, Singulair, omeprazole, ondansetron, and simethicone. PAST MEDICAL HISTORY: His only surgery is a possible tonsillectomy. He has had hyperlipidemia, anxiety, and depression. There is no history of heart disease, diabetes, stroke, lung disease, nor kidney disease. SOCIAL HISTORY: He is . He does not smoke or use any alcohol. 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 FAMILY HISTORY: Noncontributory. REVIEW OF SYSTEMS: CONSTITUTIONAL: He has been feeling poorly, mainly in relation to his anxiety, depression, and ongoing GI complaints. Appetite is diminished with associated weight loss. SKIN: No rash, no pruritus. CARDIAC: No chest pain. PULMONARY: No coughing, no hemoptysis. GI: As above. URINARY: No dysuria, no hematuria. NEUROLOGIC: No headache or seizures. PSYCHIATRIC: As above. PHYSICAL EXAMINATION: GENERAL: The patient is a pleasant, thin, alert male, who has obviously lost some weight. SKIN: Warm and dry. Nonjaundiced. HEENT: Anicteric sclerae. NECK: Supple without lymphadenopathy. CHEST: Clear. CARDIAC: Normal S1, S2. ABDOMEN: Soft, nondistended, nontender without palpable mass. There is no organomegaly. EXTREMITIES: Without edema. NEUROLOGICAL: He is alert and oriented, and answers questions appropriately. LABORATORIES: Normal CBC, normal electrolytes and renal function. LFTs are normal. Albumin 4.4. Lipase 60. Normal B12 and folate level. Normal TSH. PT 11.9 with INR 1.0. Urinalysis is normal. COVID-19 and influenza swabs were negative. Abdominal ultrasound done here today was negative for any pathology and specifically negative for gallstones nor biliary disease. There is no ascites. Chest x-ray is described as unremarkable. CT scan of his head is also described as normal. CT of the abdomen and pelvis done at [facility] about a week or 2 ago was reported as normal; although, I do not have the report. IMPRESSION: Given the patient's clinical history of his persistent abdominal pain and significant weight loss, I would think it would be important to exclude any organic pathology such as upper GI neoplasm, significant ulcer disease, gastritis, and/or celiac disease. As such, I have recommended an upper endoscopy tomorrow with either myself or Dr. Ortiz with monitored anesthesia care. Full consent has been obtained from the patient and his for this, including risks of bleeding and perforation. In the meantime, I shall order labs for the morning to check a sedimentation rate and C-reactive protein. I do not think any further imaging is currently required. It would be helpful to obtain at least the copy of the CT report from [facility] in the meantime. If the upper endoscopy is negative, then I would agree with continuing the treatment for the underlying anxiety and depression to see if that ultimately makes a difference for him in regard to his GI complaints. At this point, I do not think a colonoscopy is required given the reported history of 3 previous colonoscopies, including the 1 about 3 years ago that was reportedly negative. This has all been discussed with the patient and his in detail. They are comfortable with this plan. MD TERRENCE Hernandes/MIKA / [id number] JOI
[2023-03-13] MEDS: Simethicone 80 MG TAB.CHEW PO (22:24)
[2023-03-13] MEDS: Atorvastatin Calcium 10 MG TABLET PO (22:24)
[2023-03-14] MEDS: Ondansetron ODT 4 MG TAB.RAPDIS TRANSLINGU ×2 (05:44→23:01)
[2023-03-14] MEDS: Omeprazole 20 MG CAPSULE.DR PO (05:45)
[2023-03-14 05:50] VITALS: BP 138/72; PULSE 83; RESP 18; TEMP 36.7; O2SAT 96
[2023-03-14] MEDS: Metoprolol Tartrate 25 MG TABLET PO (07:47)
[2023-03-14] MEDS: LORazepam 1 MG TABLET PO ×2 (07:47→16:39)
[2023-03-14] MEDS: Escitalopram Oxalate 5 MG TABLET PO (07:47)
[2023-03-14] MEDS: Montelukast Sodium 10 MG TABLET PO (07:47)
--- NOTE | 2023-03-14 10:37 | HO.ANESPROP2 ---
HPI - Anesthesia Eval Consult details Narrative: EGD PMFSH Active Problems Active Problems: All Active Problems (Updated 03/14/23 @ 00:01 by Background Dajasmina) MDD (major depressive disorder), single episode with atypical features (Acute) MARTY (generalized anxiety disorder) (Acute) Mild cognitive disorder (Acute) Family History Family history of problems with anesthesia: No Surgical History History of Problems with Anesthesia: No Social History Social History Alcohol intake: never Smoked in Last 30 Days: No Use of substances other than those prescribed or required for medical reasons: No Advance Directives: Yes Advance Directives on File: Yes Advance Directives Date on File: 03/12/23 Meds Allergies Allergy/AdvReac Type Severity Reaction Status Date / Time No Known Allergies Allergy Verified 03/10/23 11:57 Active Medications: Current Medications Atorvastatin Calcium (Atorvastatin Calcium 10 Mg Tablet) 10 mg PO BEDTIME [facility] Last Admin: 03/13/23 22:24 Dose: 10 mg Escitalopram Oxalate (Escitalopram Oxalate 5 Mg Tablet) 5 mg PO DAILY [facility] Last Admin: 03/14/23 07:47 Dose: 5 mg Lorazepam (Lorazepam 1 Mg Tablet) 1 mg PO TID PRN PRN Reason: anxiety Last Admin: 03/14/23 07:47 Dose: 1 mg Metoprolol Tartrate (Metoprolol Tartrate 25 Mg Tablet) 25 mg PO DAILY [facility]; Protocol Last Admin: 03/14/23 07:47 Dose: 25 mg Montelukast Sodium (Montelukast Sodium 10 Mg Tablet) 10 mg PO DAILY [facility] Last Admin: 03/14/23 07:47 Dose: 10 mg Omeprazole (Omeprazole 20 Mg Capsule.Dr) 20 mg PO DAILY@0630 [facility] Last Admin: 03/14/23 05:45 Dose: 20 mg Ondansetron HCl (Ondansetron Odt 4 Mg Tab.Rapdis) 4 mg TRANSLINGU Q6H PRN PRN Reason: nausea/vomiting Last Admin: 03/14/23 05:44 Dose: 4 mg Simethicone (Simethicone 80 Mg Tab.Chew) 80 mg PO TID [facility] Last Admin: 03/14/23 09:27 Dose: Not Given Home Medications Medication Instructions Recorded Confirmed Last Taken Type citalopram 10 mg tablet 10 mg PO DAILY 03/11/23 03/11/23 Unknown History fluticasone propionate 50 1 spray intranasal DAILY PRN 03/11/23 03/11/23 Unknown History mcg/actuation nasal Allergy Symptoms spray,suspension lorazepam 1 mg tablet 1 mg PO TID PRN anxiety 03/11/23 03/11/23 Unknown History metoprolol tartrate 25 mg tablet 25 mg PO DAILY 03/11/23 03/11/23 Unknown History mirtazapine 15 mg tablet 15 mg PO BEDTIME 03/11/23 03/11/23 Unknown History montelukast 10 mg tablet 10 mg PO DAILY 03/11/23 03/11/23 Unknown History ondansetron 4 mg disintegrating 4 mg PO Q6-8H PRN nausea/vomiting 03/11/23 03/11/23 Unknown History tablet simvastatin 20 mg tablet 20 mg PO BEDTIME 03/11/23 03/11/23 Unknown History Exam Exam Date and Time: March 14, 2023 1037 Height,Weight and Vital Signs: Height 5 ft 9 in Weight 61.7 kg Last Vital Signs Temp 98.1 F 03/14/23 05:50 Pulse 83 03/14/23 05:50 Resp 18 03/14/23 05:50 BP 138/72 03/14/23 05:50 Pulse Ox 96 03/14/23 05:50 O2 Del Method Room Air 03/14/23 05:50 Pertinent Lab Results Pertinent Lab Results: Laboratory Tests 03/10/23 03/10/23 03/10/23 12:26 13:52 14:55 WBC 6.4 RBC 5.06 Hgb 15.1 Hct 43.6 MCV 86.2 MCH 29.8 MCHC 34.6 RDW 12.9 Plt Count 219 MPV 8.9 L Immature Gran % (Auto) 0.3 Neut % (Auto) 71.0 Lymph % (Auto) 16.7 L Harris % (Auto) 11.5 H Eos % (Auto) 0.2 Baso % (Auto) 0.3 Lymph # (Auto) 1.1 L Harris # (Auto) 0.7 Eos # (Auto) 0.0 Baso # (Auto) 0.0 Abs Immat Gran (auto) 0.02 Absolute Neuts (auto) 4.6 Absolute Nucleated RBC 0.000 Nucleated RBC % (auto) 0.0 PT 11.9 INR 1.0 Sodium 139 Potassium 3.9 Chloride 102 Carbon Dioxide 28 Anion Gap 13 BUN 17 H Creatinine 0.98 Estim Creat Clear Calc 58.5 Estimated GFR > 60 Random Glucose 109 Estimat Average Glucose Hemoglobin A1c % Calcium 9.6 Magnesium 2.3 Total Bilirubin 0.6 AST 18 ALT 12 Alkaline Phosphatase 60 Troponin I High Sens 2.7 B-Natriuretic Peptide Cancelled Total Protein 7.1 Albumin 4.4 Triglycerides Cholesterol LDL Cholesterol, Calc HDL Cholesterol Lipase 16 Vitamin B12 Folate TSH Urine Color Yellow Urine Appearance Clear Urine pH 6.0 Ur Specific Sabinal 1.025 Urine Protein Negative Urine Glucose (UA) Negative Urine Ketones 15 Urine Blood Negative Urine Nitrite Negative Ur Leukocyte Esterase Negative COVID-19 (DELIA) Negative COVID-19 Clin Com See Note Influenza Type A (SIXTO) Negative Influenza Type B (SIXTO) Negative Influenza A & B Note See Note 03/12/23 16:31 WBC RBC Hgb Hct MCV MCH MCHC RDW Plt Count MPV Immature Gran % (Auto) Neut % (Auto) Lymph % (Auto) Harris % (Auto) Eos % (Auto) Baso % (Auto) Lymph # (Auto) Harris # (Auto) Eos # (Auto) Baso # (Auto) Abs Immat Gran (auto) Absolute Neuts (auto) Absolute Nucleated RBC Nucleated RBC % (auto) PT INR Sodium Potassium Chloride Carbon Dioxide Anion Gap BUN Creatinine Estim Creat Clear Calc Estimated GFR Random Glucose Estimat Average Glucose 108 Hemoglobin A1c % 5.4 Calcium Magnesium Total Bilirubin AST ALT Alkaline Phosphatase Troponin I High Sens B-Natriuretic Peptide Total Protein Albumin Triglycerides 82 Cholesterol 145 LDL Cholesterol, Calc 67 HDL Cholesterol 62 Lipase Vitamin B12 396 Folate 11.7 TSH 0.81 Urine Color Urine Appearance Urine pH Ur Specific Sabinal Urine Protein Urine Glucose (UA) Urine Ketones Urine Blood Urine Nitrite Ur Leukocyte Esterase COVID-19 (DELIA) COVID-19 Clin Com Influenza Type A (SIXTO) Influenza Type B (SIXTO) Influenza A & B Note Airway Mallampati Class: II TM Dist: >3cm Neck ROM: Full Heart: rrr Lungs: cta Assessment and Plan Assessment Anesthesia Assessment: Anesthesia Plan Discussed and Chart Reviewed Final Anesthetic Review Family History of Problems with Anesthesia: No History of Problems with Anesthesia: No NPO: Yes ASA Class: III Final Preanesthetic Review: No Changes in Pt Med Stat, Meds/Allgs Chart Reviewed, Consent Obtained/Reviewed and Anes Risks/Benef Reviewed Patient Risk: Intermediate Procedure Risk: Intermediate Anesthetic Plan Anesthetic Plan: MAC: and Agree w/ Assess. and Plan Disposition: Standard PACU
[2023-03-14 10:41] VITALS: BP 151/88; PULSE 72; RESP 18; TEMP 36.9; O2SAT 98
--- NOTE | 2023-03-14 11:23 | MHC.CM.ED ---
Addendum entered by Silvia Seymour 03/14/23 12:37: Received notification from Megan Lucero NP that patient will be admitted to [facility]. Case management consult will be deferred at this time. Original Note: Patient remains in ER overflow. Patient is scheduled to have an endoscopy today. Will re-assess patient's needs after scope. Continue to monitor for d/c needs.
--- NOTE | 2023-03-14 12:38 | PC.NURSE ---
pt is at endoscopy.bed linens changed. lab work to be drawn when pt returns
--- NOTE | 2023-03-14 12:57 | P.BOP_ITS ---
Brief Operative Note Date of Service: 03/14/23 Pre-op diagnosis: Abdominal pain, weight loss Post-op diagnosis: other (Mild gastritis, hiatal hernia, R/O celiac disease) Procedure: EGD with biopsies Surgeon: Brock Coombs MD Anesthesia: MAC Was an Contract Sheltered [employer] Supervisor used for this Procedure?: No Estimated blood loss (mL): 2.0 Pathology: other (A. Descending duodenum B. Gastric antrum) Condition: stable Disposition: PACU
--- NOTE | 2023-03-14 12:59 | PM.EVENT ---
Event Note Date of Service: 03/14/23 Event Note: GI-EGD-Full note dictated Findings: 1. Mild antral gastritis-bx x 3 2. Normal duodenum-bx taken to R/O celiac disease 3. Small hiatal hernia No explanation found to account for his symptoms Rec: Supportive care, advance diet, continue PPI, further evaluation as per pysch and medical services. D/W in detail. Time Spent With Patient Time: Total time managing care of this patient today ____ minutes.
[2023-03-14 13:00] VITALS: BP 135/83; PULSE 81; RESP 16; TEMP 36.6; O2SAT 98
[2023-03-14 13:14] VITALS: BP 117/78; PULSE 79; RESP 16; TEMP 36.6; O2SAT 98
--- NOTE | 2023-03-14 13:34 | PC.NURSE ---
pt back from edoscopy. pt reports that they are exhausted and encouraged to take a nap. pt sleeping at this time.
[2023-03-14] MEDS: Simethicone 80 MG TAB.CHEW PO ×2 (14:29→20:07)
[2023-03-14 14:55] VITALS: BP 142/87; PULSE 78; RESP 16; TEMP 36.9; O2SAT 97
[2023-03-14 15:03] LABS: C Reactive Protein 0.11 mg/dL (< or = 0.50)
[2023-03-14 15:37] LABS: Erythrocyte Sedimentation Rate 4 MM/HR (0-15)
--- NOTE | 2023-03-14 18:19 | PC.NURSE ---
Assumed patient care at 1500- Patient resting in bed, at bedside for most of shift. Patient reporting increased anxiety, PRN ativan given at 1639 with good affect. Patient ate dinner. Ambulated to bathroom with assist. All needs met.
[2023-03-14 20:00] VITALS: BP 126/82; PULSE 78; RESP 18; TEMP 36.8; O2SAT 97
[2023-03-14] MEDS: Atorvastatin Calcium 10 MG TABLET PO (20:07)
--- NOTE | 2023-03-14 20:37 | OP_ITS ---
DATE OF SERVICE: 03/14/2023 SURGEON: Brock Coombs MD INDICATIONS: The patient presents for evaluation of abdominal pain, anorexia, and significant weight loss. Full consent was obtained from him and his for the procedure, including risks of bleeding and perforation. PREOPERATIVE DIAGNOSIS: POSTOPERATIVE DIAGNOSIS: PROCEDURE PERFORMED: ESTIMATED BLOOD LOSS: COMPLICATIONS: ANESTHESIA: Medication used: Monitored anesthesia care. ASSISTANTS: SPECIMENS: PROCEDURE: Esophagogastroduodenoscopy with biopsies. PREOPERATIVE DIAGNOSES: Abdominal pain, anorexia, and weight loss. POSTOPERATIVE DIAGNOSES: Mild antral gastritis, small hiatal hernia, rule out celiac disease. DESCRIPTION OF PROCEDURE: The patient was placed in the left lateral decubitus position. The Olympus video gastroscope was passed in the posterior oropharynx and upper esophagus under direct vision. The scope was passed slowly to the distal esophagus. The gastroesophageal junction appeared normal at 38 cm. There was no sign of any esophagitis, nor Garrett mucosa. The scope easily entered the stomach. There was a small hiatal hernia. The scope was advanced to the pylorus and the duodenum was cannulated to the descending portion. The duodenum including the bulb appeared normal without mass or ulceration. Biopsies were obtained from the 2nd and 3rd portions of duodenum. The scope was withdrawn back in the stomach. The gastric antrum had some mild areas of erythema, but no erosions or ulceration. There was good peristalsis. Biopsies were obtained from the antrum. The scope was retroflexed visualizing the proximal stomach carefully, which appeared normal, without any sign of mass or ulceration. There were several hyperplastic-appearing gastric polyps approximately 5 mm in size. These were not biopsied. The scope was straightened and withdrawn back to the esophagus. The esophageal mucosa appeared normal. The scope was withdrawn from the patient. He tolerated the procedure well and was returned to the recovery area in stable condition. IMPRESSION: 1. Small hiatal hernia. 2. Mild antral gastritis. 3. Rule out celiac disease. PLAN: The results of the biopsies will be checked. These findings would certainly not account for the patient's significant symptoms of the anorexia, abdominal discomfort, and weight loss. His workup thus far has been negative including a CT scan at [facility], the report of which I did review from March 01. The report describes some liver cysts, but otherwise no other abnormalities. The abdominal ultrasound here at [facility] was unremarkable, as was all his laboratory testing. At this point, I do not think he needs any other particular diagnostic interventions on my part. He has had 3 previous colonoscopies in [place] with the most recent one about 2 or 3 years ago according to the patient and his . I would advance his diet and observe him. I would continue a PPI. At this point, it looks like he will be admitted to the psychiatric service for his underlying anxiety and depression, and hopefully treatment of those issues will help his GI symptoms improve as well, along with his appetite and weight. This has all been discussed in detail with the patient and his . I advised them that I will be available and happy to see him again if the need arises. They were comfortable with this plan. MD TERRENCE Hernandes/MIKA / [id number] [email or web address]
--- NOTE | 2023-03-14 21:20 | PC.NURSE ---
This manual writer assumed care of this Pt at 1900. Pt A&Ox3, laying in bed, denies any pain. States taking it slow , withdrawn. Pt ambulated to the bathroom with one staff stand by assist. Pt medicated per JUL.
--- NOTE | 2023-03-14 22:50 | PC.NURSE ---
Addendum entered by Elva Marie 03/15/23 00:46: Pt reports effectiveness of zofran, offered Ativan, states I will skip it for now . Original Note: Pt requesting Ativan states It helps with ABD pain , offered zofran d/t Ativan being given to soon. Pt okay with plan.
[2023-03-15] MEDS: LORazepam 1 MG TABLET PO ×2 (02:19→10:01)
--- NOTE | 2023-03-15 04:37 | PC.NURSE ---
Pt appears to be sleeping, no apparent distress, equal nonlabored RR.
[2023-03-15 06:13] VITALS: BP 141/88; PULSE 83; RESP 15; TEMP 36.8; O2SAT 97
[2023-03-15] MEDS: Ondansetron ODT 4 MG TAB.RAPDIS TRANSLINGU ×2 (06:17→12:26)
[2023-03-15] MEDS: Omeprazole 20 MG CAPSULE.DR PO (06:17)
[2023-03-15 08:55] VITALS: BP 130/83; PULSE 82; RESP 18; O2SAT 95
[2023-03-15] MEDS: Simethicone 80 MG TAB.CHEW PO ×3 (10:01→20:48)
[2023-03-15] MEDS: Escitalopram Oxalate 5 MG TABLET PO (10:01)
[2023-03-15] MEDS: Metoprolol Tartrate 25 MG TABLET PO (10:01)
--- NOTE | 2023-03-15 11:17 | PM.PSYCN ---
History of Present Illness Date of Service: 03/15/2023 Chief Complaint: SOB PER EMS Reason for Consult: f/u Requesting physician: Reyes Small Discussed with referring provider: Yes Sources of Information: patient interviewed, chart reviewed and crisis/core team assessment reviewed HPI Narrative: Interim Hx:Pt seen with by his side. Pt reports feeling better than when he was home. He reports feeling less anxious, calmer. He reports GI pain is less. He is on combination of omeprazole, famotidine, simethicone. She also takes ativan, which reports helping and worried if not taking it consistently. No SI/HI. We discussed findings of MOCA - which do show degree of cognitive impairments. Considering overall presentation- pt also presents with movement abnormalities- decrease arm movement when walking, mask-like facial expression, decrease eye blinking, short stepped gait (not so much shuffling), stooped position, no tremor, no cogwheel. Review of Systems Review of Systems Yes all other systems are reviewed and are negative [facility] Surgical History Hx of colonoscopy Hx of tonsillectomy Diagnostics Vital Signs (24Hr): Vital Signs - 24 hr 03/14/23 13:00 03/14/23 13:14 03/14/23 14:55 Temperature 97.8 F 97.8 F 98.5 F Pulse Rate 81 79 78 Respiratory Rate 16 16 16 Blood Pressure 135/83 117/78 142/87 H Pulse Oximetry 98 98 97 Oxygen Delivery Method Room Air Room Air Room Air 03/14/23 20:00 03/15/23 06:13 03/15/23 08:55 Temperature 98.3 F 98.2 F Pulse Rate 78 83 82 Respiratory Rate 18 15 18 Blood Pressure 126/82 141/88 H 130/83 Pulse Oximetry 97 97 95 Oxygen Delivery Method Room Air Room Air Room Air BMI result Body Mass Index 20.1 Labs 03/10/23 13:52 03/10/23 13:52 Labs: Laboratory Results - last 48 hr 03/14/23 14:32 ESR 4 C-Reactive Protein 0.11 Imaging Radiology Impressions: ITS Impressions Head CT 03/10/23 13:17 Impression: Normal nonenhanced head CT Chest X-Ray 03/10/23 13:20 IMPRESSION: Unremarkable examination. Abdomen Ultrasound 03/10/23 13:45 IMPRESSION: * No acute sonographic abnormalities within the examined abdomen. * No evidence of cholelithiasis, cholecystitis or biliary tract obstruction. * Incidentally noted are a few benign hepatic cysts. Mental Status Exam Mental Status Exam Narrative: Appearance: mask-like facial expression, wearing hospital gown, fair hygiene, in NAD Behavior:cooperative Psychomotor: no resting tremors, no agitation or retardation noted Speech: clear, some delayed in response, spontaneous TP: linear TC: feeling better Mood: today is a good day Affect: congruent, with somewhat of a mask-like expression SI: denies HI: denies VH/AH:none Delusions: none Insight/judgment: fair x 2 Memory/cog: alert, oriented x 3. MOCA --> most impairment on visuo spatial, executive function, recall. with intact orientation and language. Medications Medications Current Medications Atorvastatin Calcium (Atorvastatin Calcium 10 Mg Tablet) 10 mg PO BEDTIME [facility] Last Admin: 03/14/23 20:07 Dose: 10 mg Escitalopram Oxalate (Escitalopram Oxalate 5 Mg Tablet) 5 mg PO DAILY [facility] Last Admin: 03/15/23 10:01 Dose: 5 mg Lorazepam (Lorazepam 0.5 Mg Tablet) 0.5 mg PO DAILY@0800,1300,1700 [facility] Lorazepam (Lorazepam 0.5 Mg Tablet) 0.5 mg PO DAILY PRN PRN Reason: Anxiety Metoprolol Tartrate (Metoprolol Tartrate 25 Mg Tablet) 25 mg PO DAILY [facility]; Protocol Last Admin: 03/15/23 10:01 Dose: 25 mg Montelukast Sodium (Montelukast Sodium 10 Mg Tablet) 10 mg PO DAILY [facility] Last Admin: 03/15/23 10:03 Dose: Not Given Omeprazole (Omeprazole 20 Mg Capsule.Dr) 20 mg PO DAILY@0630 [facility] Last Admin: 03/15/23 06:17 Dose: 20 mg Ondansetron HCl (Ondansetron Odt 4 Mg Tab.Rapdis) 4 mg TRANSLINGU Q6H PRN PRN Reason: nausea/vomiting Last Admin: 03/15/23 06:17 Dose: 4 mg Simethicone (Simethicone 80 Mg Tab.Chew) 80 mg PO TID [facility] Last Admin: 03/15/23 10:01 Dose: 80 mg Allergies Allergies Allergy/AdvReac Type Severity Reaction Status Date / Time No Known Allergies Allergy Verified 03/10/23 11:57 Assessment & Plan Assessment & Plan (1) MDD (major depressive disorder), single episode with atypical features: Status: Acute Code(s): F32.9 - Major depressive disorder, single episode, unspecified (2) Mild cognitive disorder: Status: Acute Code(s): F09 - Unspecified mental disorder due to known physiological condition (3) MARTY (generalized anxiety disorder): Status: Acute Code(s): F41.1 - Generalized anxiety disorder Plan Mr. Vegas is a 72 year-old male who was brought by family due to severe anxious mood exacerbated by GI symptoms of unclear etiology including epigastric pain, nausea, weight loss of more than 30Lbs in past 3 months. He also presents with gait abnormalities- shuffling gait, limited movement of limbs when walking, decrease eye blinking no tremors, mask-like facial expression, MOCA does show some cognitive impairment/decline with significant impairment in executive function/visuospatial skills, and recall (0/5) with fairly intact orientation, attention and language (repetition/fluency and naming). PLAN 03/15- decrease ativan to 0.5mg po TID with ativan 0.5mg po PRN. continue lexapro. pending [facility] bed, but will continue to assess as pt reports some improvement. Total time managing care of this patient today ____ minutes.
[2023-03-15] MEDS: LORazepam 0.5 MG TABLET PO ×2 (12:26→21:47)
[2023-03-15 14:00] VITALS: BP 131/86; PULSE 70; RESP 18; TEMP 36.9; O2SAT 96
--- NOTE | 2023-03-15 14:06 | MHC.CARE ---
patient seen by CARE team. Inpt LOC [facility] recommended. Pending placement/ availabilty of male bed.
--- NOTE | 2023-03-15 15:25 | MHC.CM.ED ---
Received notification from [facility] Team that patient's , Smita, has question about superintendent container terminal insurance. Met with Smita. Smita was concerned about the ER cost plus patient being admitted to inpatient [facility]. T/W explained ER copay should be wrapped into inpatient [facility] stay when bed is available and patient is physically admitted. Smita verbalized understanding.
--- NOTE | 2023-03-15 17:54 | PC.NURSE ---
Late Entry: 1000 - singulair not given, pts asked not to give it. IV removed from LAC. 1100 - pt reported feeling queasy , requested zofran. asked multiple times when next dose of ativan due. Ativan given as documented.
--- NOTE | 2023-03-15 18:12 | PC.NURSE ---
pt's asked not to give 1700 ativan unless he asks for it. ativan not given. pt sleeping at this time.
--- NOTE | 2023-03-15 19:20 | PC.NURSE ---
Addendum entered by Vaibhav Branch RN 03/15/23 21:06: Security camera in place for safety. Original Note: Assumed care of pt. Pt isela serrato, no acute distress noted, respirations even and unlabored. Planning for administration of night time medications.
[2023-03-15 20:47] VITALS: BP 135/83; PULSE 66; RESP 19; TEMP 36.3; O2SAT 97
[2023-03-15] MEDS: Atorvastatin Calcium 10 MG TABLET PO (20:48)
--- NOTE | 2023-03-15 21:57 | PC.NURSE ---
Pt requested PRN dose of Ativan. During handover, this RN received report that the PRN would be DC'd in favor of scheduled doses of Ativan in order to curb overuse. While this RN was waiting for verification of PRN order, pt called and handed phone to this RN. This RN attempted to multiple times to clarify that in order to ensure pt safety and correct medication administration, the order needed to be verified as correct. After multiple attempts at clarification, the pt agreed, and requested to speak back with pt. Order was verified and medication was administered per order with no further complications.
[2023-03-16] MEDS: Omeprazole 20 MG CAPSULE.DR PO (05:06)
[2023-03-16 06:21] VITALS: BP 138/80; PULSE 89; TEMP 36.3; O2SAT 96
[2023-03-16 07:40] VITALS: BP 162/95; PULSE 86; O2SAT 97
[2023-03-16] MEDS: Escitalopram Oxalate 5 MG TABLET PO (07:40)
[2023-03-16] MEDS: LORazepam 0.5 MG TABLET PO ×3 (07:40→17:01)
[2023-03-16] MEDS: Metoprolol Tartrate 25 MG TABLET PO (07:40)
[2023-03-16] MEDS: Simethicone 80 MG TAB.CHEW PO ×3 (07:40→21:27)
--- NOTE | 2023-03-16 10:28 | PC.NURSE ---
LATE ENTRY: 0740 PT REQUESTED ZOFRAN FOR DIFFICULTY BREATHING DUE TO HAVING AN UPSET STOMACH . PT REASSURED BY THIS CRIMINAL DEFENSE ATTORNEY. PT ASKED WHAT TIME IS HIS NEXT DOSE OF ATIVAN. MORNING MEDS GIVEN DOCUMENTED. SINGULAIR NOT GIVEN I DON'T TAKE THAT ANYMORE . PT IN BED RESTING QUIETLY AT THIS TIME. VIDEO MONITOR AND BED ALARM ON.
[2023-03-16 11:19] LABS: COVID-19 Test Negative (Negative); IDNOW Serial# 08D9AD1C
--- NOTE | 2023-03-16 13:28 | PC.NURSE ---
ATIVAN GIVEN DOCUMENTED. PT UP TO BATHROOM WITH HIS . RESTING QUIETLY AT THIS TIME
[2023-03-16 15:55] VITALS: BP 167/89; PULSE 75; RESP 18; TEMP 36.5; O2SAT 97
--- NOTE | 2023-03-16 16:59 | MHC.EDTECH ---
This pct assumed care of pt at 1500 ,vitals taken ,pt here ,Pt took Patient for walk and to bathroom ,pt ate 75 % of meal and drank 360 ml fluids .
[2023-03-16] MEDS: Ondansetron ODT 4 MG TAB.RAPDIS TRANSLINGU (21:27)
[2023-03-16] MEDS: Atorvastatin Calcium 10 MG TABLET PO (21:27)
[2023-03-16 21:45] VITALS: BP 127/84; PULSE 88; RESP 16; TEMP 36.6; O2SAT 96
[2023-03-16] MEDS: traZODone HCL 50 MG TABLET PO (22:05)
[2023-03-16 22:08] VITALS: BMI 19.4
--- NOTE | 2023-03-16 22:26 | PC.ADMIT ---
Mr Clinton Vegas is an admit from the ED overflow, Patient arrived to the unit around 21:45 via Wheel Chair. Patient is a+o x3 , KLEIN, VSS, Legal status: CV, with 5mins checks, pt is independent and steady on feet. Per crisis notes, Patient's initial presentation to the ED was secondary to epigastric pain, nausea and anxiety concerning his condition. Patient lost his appetite, which has resulted in losing over 30lbs over the last few months, and has become emotionally withdrawn from family. Patient has been experiencing persistent abdominal pain since December and has since been preoccupied with the pain. Patient is pleasant, has flat affect, quiet during 1:1 approach, laid in his bed with eyes closed and will make minimal eye contact occasionally. Patient is isolating/withdrawn to room, stating I just want to sleep, I haven't slept for like 6days now . Patient denies SI/HI/AH/VH. Patient reports feeling safe on unit.
[2023-03-17] MEDS: Ondansetron ODT 4 MG TAB.RAPDIS TRANSLINGU ×2 (02:26→13:31)
[2023-03-17] MEDS: LORazepam 0.5 MG TABLET PO ×4 (02:29→17:00)
[2023-03-17] MEDS: Omeprazole 20 MG CAPSULE.DR PO (06:07)
[2023-03-17 07:55] VITALS: BP 120/76; PULSE 97; RESP 18; TEMP 36.4; O2SAT 99
[2023-03-17] MEDS: Escitalopram Oxalate 5 MG TABLET PO (08:49)
[2023-03-17] MEDS: Montelukast Sodium 10 MG TABLET PO (08:49)
[2023-03-17] MEDS: Metoprolol Tartrate 25 MG TABLET PO (08:49)
[2023-03-17] MEDS: Simethicone 80 MG TAB.CHEW PO ×3 (08:49→20:55)
--- NOTE | 2023-03-17 16:13 | P.HPPS_ITS ---
HPI Date of Service: 03/17/23 Chief Complaint: failure to thrive Sources of Information: patient interviewed, chart reviewed and crisis/core team assessment reviewed HPI Subjective Notes: Shin Warning and Conditional Voluntary Healthcare Proxy: No Guardianship: No Narrative: Mr. Vegas is a 72 year-old male who was brought by family due to severe anxious mood exacerbated by GI symptoms of unclear etiology including epigastric pain, nausea, weight loss of more than 30Lbs in past 3 months. He also presents with gait abnormalities- shuffling gait, limited movement of limbs when walking, decrease eye blinking no tremors, mask-like facial expression, MOCA does show some cognitive impairment/decline with significant impairment in executive function/visuospatial skills, and recall (0/5) with fairly intact orientation, attention and language (repetition/fluency and naming). He is very soft spoken and focused on epigastric apin. He reports he worries about everything - he worries about his , taking care of the house and being alone; he says he worries about his daughter. He says it does make him sad; He denies previous hx of depression; he endorses lifelong anxiety and worry. He reports zofran helps a little with his GI pain. He is agreeable to increase in lexapro. Past Psychiatric History: no hx IPLOC only rcent rx of remeron (3 months ago) from pcp failed- ? increased agitation; started on celexa 10mg 1 week ago and switched to lexapro when at [facility] due to formulary no outpt psychiatry or therapy Medical Evaluation Reviewed: Yes medical work up in ED including Head CT scan negative, upper endoscopy showed mild gastritis and small hiatal hernia not thoughts to be causing severe pain, abdominal ultrasound normal except benign cysts seen on liver, chest xray normal, colonoscopy 2 yrs ago normal per record. TSH, B12, cholesterol levels normal. weight loss of 30 # in 3 months. moca EKG showed Normal sinus rhythm Incomplete right bundle branch block Left anterior fascicular block Abnormal ECG No previous ECGs available [facility] Surgical History Hx of colonoscopy Hx of tonsillectomy Family History: lives with supportive daughter Substance History: none Trauma History: none Diagnostics Vital Signs (24Hr): Vital Signs - 24 hr 03/16/23 21:45 03/17/23 07:55 Temperature 97.8 F 97.6 F Pulse Rate 88 97 Respiratory Rate 16 18 Blood Pressure 127/84 120/76 Pulse Oximetry 96 99 Oxygen Delivery Method Room Air Room Air BMI result Body Mass Index 19.4 Labs 03/10/23 13:52 03/10/23 13:52 Labs: Laboratory Results - last 48 hr 03/16/23 11:01 COVID-19 ([facility]IA) Negative COVID-19 Clin Com See Note EKG EKG: reviewed EKG Comment: EKG showed Normal sinus rhythm Incomplete right bundle branch block Left anterior fascicular block Abnormal ECG No previous ECGs available Imaging Radiology Impressions: ITS Impressions Head CT 03/10/23 13:17 Impression: Normal nonenhanced head CT Chest X-Ray 03/10/23 13:20 IMPRESSION: Unremarkable examination. Abdomen Ultrasound 03/10/23 13:45 IMPRESSION: * No acute sonographic abnormalities within the examined abdomen. * No evidence of cholelithiasis, cholecystitis or biliary tract obstruction. * Incidentally noted are a few benign hepatic cysts. Meds/Allergies Meds Home Medications Medication Instructions Recorded Confirmed Type citalopram 10 mg tablet 10 mg PO DAILY 03/11/23 03/11/23 History fluticasone propionate 50 1 spray intranasal DAILY PRN 03/11/23 03/11/23 History mcg/actuation nasal Allergy Symptoms spray,suspension lorazepam 1 mg tablet 1 mg PO TID PRN anxiety 03/11/23 03/11/23 History metoprolol tartrate 25 mg tablet 25 mg PO DAILY 03/11/23 03/11/23 History mirtazapine 15 mg tablet 15 mg PO BEDTIME 03/11/23 03/11/23 History montelukast 10 mg tablet 10 mg PO DAILY 03/11/23 03/11/23 History ondansetron 4 mg disintegrating 4 mg PO Q6-8H PRN nausea/vomiting 03/11/23 03/11/23 History tablet simvastatin 20 mg tablet 20 mg PO BEDTIME 03/11/23 03/11/23 History Allergies Allergies Allergy/AdvReac Type Severity Reaction Status Date / Time No Known Allergies Allergy Verified 03/10/23 11:57 Mental Status Exam Mental Status Exam Narrative: Appearance: mask-like facial expression, wearing hospital gown, fair hygiene, in NAD Behavior:cooperative Psychomotor: no resting tremors, no agitation or retardation noted Speech: clear, some delayed in response, spontaneous TP: linear TC: feeling better Mood: today is a good day Affect: congruent, with somewhat of a mask-like expression SI: denies HI: denies VH/AH:none Delusions: none Insight/judgment: fair x 2 Memory/cog: alert, oriented x 3. MOCA 18/30--> most impairment on visuo spatial, executive function, recall. with intact orientation and language. Patient Appearance: Disheveled and Unkempt Patient Orientation: Person, Place and Situation Level of Consciousness: Awake Patient Behavior: Appropriate, Cooperative, Anxious and Fatigued Mood Description: Anxious and Sad Affect Description: Withdrawn and Anxious Patient Cognition Impaired: Yes Ability to Follow Directions: Good Speech Pattern: Whisper Memory Description: Remote Impaired, Immediate Impaired and Recent Impaired Thought Process: Rumination Thought Content: positive for Preoccupation Judgement: Fair Assessment & Plan Assessment & Plan (1) MDD (major depressive disorder), single episode with atypical features: Status: Acute Code(s): F32.9 - Major depressive disorder, single episode, unspecified (2) Mild cognitive disorder: Status: Acute Code(s): F09 - Unspecified mental disorder due to known physiological condition (3) MARTY (generalized anxiety disorder): Status: Acute Code(s): F41.1 - Generalized anxiety disorder Plan Mr. Vegas is a 72 year-old male who was brought by family due to severe anxious mood exacerbated by GI symptoms of unclear etiology including epigastric pain, nausea, weight loss of more than 30Lbs in past 3 months. He also presents with gait abnormalities- shuffling gait, limited movement of limbs when walking, decrease eye blinking no tremors, mask-like facial expression, MOCA does show some cognitive impairment/decline with significant impairment in executive function/visuospatial skills, and recall (0/5) with fairly intact orientation, attention and language (repetition/fluency and naming). PLAN admit to m5 CV 15 min checks increase lexapro to 10 mg daily cardiology consult collateral contact discharge planning with team Patient educated on: diagnosis, medication risk/benefits and therapeutic strategies Informed Consent: further education needed Reason for continued inpatient stay Substantial Risk for: inability to function and rapid decompensation Statement Statement: I have reviewed the history and physical and performed a pertinent examination on my patient. No changes have occurred unless specified. If the History and Physical was not performed prior to admission, the Hospitalist's service will be consulted for completing the admission physical. Time Spent With Patient Time: Total time managing care of this patient today _60___ minutes.
[2023-03-17 19:52] VITALS: BP 132/83; PULSE 87; RESP 16; TEMP 36.4; O2SAT 97
[2023-03-17] MEDS: Sennosides/Docusate Sodium TABLET 2 TAB PO (20:54)
[2023-03-17] MEDS: diphenhydrAMINE HCL 25 MG CAPSULE 50 MG PO (20:55)
[2023-03-17] MEDS: Atorvastatin Calcium 10 MG TABLET PO (20:55)
[2023-03-18] MEDS: LORazepam 0.5 MG TABLET PO ×5 (01:05→22:42)
[2023-03-18] MEDS: Omeprazole 20 MG CAPSULE.DR PO (06:19)
[2023-03-18] MEDS: Ondansetron ODT 4 MG TAB.RAPDIS TRANSLINGU (06:23)
[2023-03-18 08:00] VITALS: BP 162/92; PULSE 85; RESP 18; TEMP 36.8; O2SAT 98
[2023-03-18] MEDS: Escitalopram Oxalate 10 MG TABLET PO (08:08)
[2023-03-18] MEDS: Metoprolol Tartrate 25 MG TABLET PO (08:08)
[2023-03-18] MEDS: Sennosides/Docusate Sodium TABLET 2 TAB PO ×2 (08:08→20:38)
[2023-03-18] MEDS: Simethicone 80 MG TAB.CHEW PO ×3 (08:09→20:38)
--- NOTE | 2023-03-18 14:10 | PM.CNCAR ---
History of Present Illness History of Present Illness Date of Service: 03/18/23 Requesting physician: Maribel Perkins Consult reason: other (Epigastric pain) Chief complaint: failure to thrive Narrative: I was consulted to see Clinton in cardiology consultation today for epigastric discomfort. He has been admitted with mental disorder with anxiety disorder and mood disorder with major depression. Patient says for the last 6 months been having epigastric discomfort which is right here sitting in his epigastric area which is almost constantly present although there is exacerbation with anxiety. Usually gets better when he takes Ativan. He has been worked up extensively by GI and there has been no obvious cause. Patient says he does his exertional activity but mostly does morning of his lawn which does not clearly exacerbate his pain. His was present during the entire interview. He has longstanding history of hyperlipidemia and has been on statin therapy for a long time. Has anxiety disorder. Over the last many months he has lost lot of weight. He does not espouse to the history of hypertension. He has no prior history of vascular disease. No prior cardiac history per se. Review of Systems Constitutional: Constitutional: Reports weight loss Eyes: Eyes: Reports no additional eye complaints Cardiovascular: Cardiovascular: Denies chest pain with activity, Reports epigastric discomfort, Denies lightheadedness, Denies dyspnea, Denies dyspnea on exertion and Denies paroxysmal nocturnal dyspnea Respiratory: Respiratory: Denies no additional respiratory complaints, Denies dyspnea and Denies dyspnea on exertion Gastrointestinal: Gastrointestinal: Reports no additional gastrointestinal complaints Genitourinary: Genitourinary: Reports no additional male genitourinary complaints Musculoskeletal: Musculoskeletal: Reports no additional musculoskeletal complaints Integumentary/Breasts: Skin/Breast: Reports system reviewed and no additional complaints, except as docu Neurologic: Reports system reviewed and no additional complaints, except as documented Psychiatric: Psychiatric: Reports no additional psychiatric complaints Endocrine: Endocrine: Reports no additional endocrine complaints Hematologic/Lymphatic: Hematologic/Lymphatic: Reports no additional hematologic/lymphatic complaints [facility] Surgical History Surgical History Hx of colonoscopy Hx of tonsillectomy Social History Social History Household Members: Family Housing: House Do you presently have visiting nurse or other home services: No Alcohol intake: never Patient Tobacco Use Status: Never used Tobacco Smoked in Last 30 Days: No Use of substances other than those prescribed or required for medical reasons: No Currently Displaying Signs/Symptoms of Drug Intoxication Withdrawal: No Any prior treatment program specific to substance use: No Have you been hit, kicked, punched, or otherwise hurt by someone within the past year? If so, by whom?: No Do you feel safe in your current relationship?: No Is there a partner from a previous relationship who is making you feel unsafe now?: No Are you made to feel afraid or neglected: No Spiritual Healthcare Practices: none Voodoo Healthcare Practices: none Cultural Healthcare Practices: none Are you DNR?: No Advance Directives: Yes Advance Directives on File: Yes Advance Directives Date on File: 03/12/23 Healthcare Proxy: Yes ( and daughter are HCPs) Guardian: No Do you have thoughts of harming others: None Do you have a plan to hurt others: No Plan Recently lost weight without trying: Yes How much weight loss: 24-33 pounds Eating poorly because of decreased appetite: Yes Nutrition screen score: 6 Nutrition Risks: No Nutritional Risk Poor oral hygiene: No Meds Allergies Allergy/AdvReac Type Severity Reaction Status Date / Time No Known Allergies Allergy Verified 03/10/23 11:57 Active Medications: Current Medications Atorvastatin Calcium (Atorvastatin Calcium 10 Mg Tablet) 10 mg PO BEDTIME [facility] Last Admin: 03/17/23 20:55 Dose: 10 mg Escitalopram Oxalate (Escitalopram Oxalate 10 Mg Tablet) 10 mg PO DAILY [facility] Last Admin: 03/18/23 08:08 Dose: 10 mg Fluticasone Propionate (Fluticasone Propionate Nasal 16 Gm Llewellyn) 1 spray NOSTRIL-B DAILY PRN PRN Reason: Allergy Symptoms Lorazepam (Lorazepam 0.5 Mg Tablet) 0.5 mg PO DAILY@0800,1300,1700 [facility] Last Admin: 03/18/23 12:35 Dose: 0.5 mg Lorazepam (Lorazepam 0.5 Mg Tablet) 0.5 mg PO BID PRN PRN Reason: Anxiety Last Admin: 03/18/23 01:05 Dose: 0.5 mg Metoprolol Tartrate (Metoprolol Tartrate 25 Mg Tablet) 25 mg PO DAILY [facility]; Protocol Last Admin: 03/18/23 08:08 Dose: 25 mg Montelukast Sodium (Montelukast Sodium 10 Mg Tablet) 10 mg PO DAILY [facility] Last Admin: 03/18/23 08:09 Dose: Not Given Omeprazole (Omeprazole 20 Mg Capsule.Dr) 20 mg PO DAILY@0630 [facility] Last Admin: 03/18/23 06:19 Dose: 20 mg Ondansetron HCl (Ondansetron Odt 4 Mg Tab.Rapdis) 4 mg TRANSLINGU Q6H PRN PRN Reason: nausea/vomiting Last Admin: 03/18/23 06:23 Dose: 4 mg Senna/Docusate Sodium (Sennosides/Docusate Sodium Tablet) 2 tab PO BID [facility] Last Admin: 03/18/23 08:08 Dose: 2 tab Simethicone (Simethicone 80 Mg Tab.Chew) 80 mg PO TID [facility] Last Admin: 03/18/23 08:09 Dose: 80 mg Trazodone HCl (Trazodone Hcl 25 Mg Halftab) 25 mg PO BEDTIME PRN PRN Reason: insomnia Home Medications Medication Instructions Recorded Confirmed Last Taken Type citalopram 10 mg tablet 10 mg PO DAILY 03/11/23 03/11/23 Unknown History fluticasone propionate 50 1 spray intranasal DAILY PRN 03/11/23 03/11/23 Unknown History mcg/actuation nasal Allergy Symptoms spray,suspension lorazepam 1 mg tablet 1 mg PO TID PRN anxiety 03/11/23 03/11/23 Unknown History metoprolol tartrate 25 mg tablet 25 mg PO DAILY 03/11/23 03/11/23 Unknown History mirtazapine 15 mg tablet 15 mg PO BEDTIME 03/11/23 03/11/23 Unknown History montelukast 10 mg tablet 10 mg PO DAILY 03/11/23 03/11/23 Unknown History ondansetron 4 mg disintegrating 4 mg PO Q6-8H PRN nausea/vomiting 03/11/23 03/11/23 Unknown History tablet simvastatin 20 mg tablet 20 mg PO BEDTIME 03/11/23 03/11/23 Unknown History Physical Exam Vital Signs: Vital Signs: Last Vital Signs Temp 98.2 F 03/18/23 08:00 Pulse 85 03/18/23 08:00 Resp 18 03/18/23 08:00 BP 162/92 H 03/18/23 08:00 Pulse Ox 98 03/18/23 08:00 O2 Del Method Room Air 03/18/23 08:00 BMI result Body Mass Index 19.4 Const: General: cooperative, comfortable, no acute distress, alert, awake and anxious Nutritional Appearance: underweight Orientation/consciousness: patient oriented x3 Limitations: no limitations HEENT: Head: Yes normocephalic and Yes atraumatic Neck: Neck: Yes trachea midline, Yes supple and Yes no JVD Resp: Effort & Inspection: normal respiratory effort Auscultation: clear to auscultation bilaterally Cardio: Jugular venous distension: no JVD Palpation: normal PMI Rate: regular rate Rhythm: regular rhythm Heart sounds: S1 normal heart sound present, S2 normal heart sound present, no click, no gallops, no murmurs and no rubs GI: Auscultation: normal bowel sounds Skin: General skin exam: no rashes or lesions noted Neuro: General: patient oriented x3 and no focal motor deficits Extrem: General: Yes no clubbing, cyanosis or edema Objective Labs and Meds 03/10/23 13:52 03/10/23 13:52 Lab results: EKG shows normal sinus rhythm with left anterior fascicular block and incomplete right bundle-branch block Assessment and Plan (1) Abdominal pain, epigastric: Status: Inactive Patient with atypical discomfort which gets worse with anxiety. Possibly anxiety driven epigastric discomfort. Although he has multiple risk factors for CAD. With suggest exercise myocardial perfusion imaging to further evaluate for the same. His blood pressure is not well control and will consider adding amlodipine 5 mg to his regimen and switch his simvastatin to atorvastatin 20 mg to avoid interaction. He had an echocardiogram with his primary care physician this needs to be obtained. Further testing based on the findings of stress test. If he has no significant myocardial ischemia would pursue treating his mental disorder more aggressively. Will follow up if need be after the stress test Procedures Date of Service Date of Service: 03/18/23
--- NOTE | 2023-03-18 16:31 | HO.PSYCHPN ---
Subjective Subjective Date of Service: 03/18/23 Reason For Visit: failure to thrive Interim History: Pt is a 72 year-old male who was brought to ED by family due to severe anxious mood exacerbated by GI symptoms of unclear etiology including epigastric pain, nausea, weight loss of more than 30Lbs in past 3 months. He also presents with gait abnormalities- shuffling gait, limited movement of limbs when walking, decrease eye blinking no tremors, mask-like facial expression, MOCA does show some cognitive impairment/decline with significant impairment in executive function/visuospatial skills, and recall (0/5) with fairly intact orientation, attention and language (repetition/fluency and naming). He is very soft spoken and focused on epigastric pain. He reports he worries about everything - he worries about his , taking care of the house and being alone; he says he worries about his daughters. He says it does make him sad; He denies previous hx of depression; he endorses lifelong anxiety and worry. He reports zofran helps a little with his GI pain. He is agreeable to increase in lexapro. He is tolerating the increase of lexapro. He had cardiology consult today and will have additional work up; started on amlodipine 5 mg for BP. Met with patient and today, is concerned about limited visiting hours and concerned she needs to advocate for her ; she tells me they have 2 daughters who have cystic fibrosis in their 30s. One with a lung transplant; She reports a long histroy of being pt advocate for them and wants to do the same for . encouraged her to call staff on sunday and express wishes; pt reports some mild improvement today with some periods free of epigastric pain. He report s sleeping well with benadryl last night and started on scheduled hydroxyzine for tonight. Medication Compliance: Yes Side effects from medications: No Attending Groups: No Review of Systems Acute medical concerns: No Medical Review of Systems: unchanged Review of Systems Review of Systems Yes all other systems are reviewed and are negative Constitutional: Reports fatigue, Reports lethargy, Reports poor appetite, Reports weakness and Reports weight loss Eyes: Reports as per HPI and Reports no additional eye complaints Reports as per HPI Cardiovascular: Reports as per HPI, Denies chest pain with activity, Reports epigastric discomfort, Denies lightheadedness, Denies dyspnea, Denies dyspnea on exertion and Denies paroxysmal nocturnal dyspnea Respiratory: Reports as per HPI, Denies no additional respiratory complaints, Denies dyspnea and Denies dyspnea on exertion Gastrointestinal: Reports no additional gastrointestinal complaints Genitourinary: Reports no additional male genitourinary complaints and Reports as per HPI Musculoskeletal: Reports no additional musculoskeletal complaints and Reports as per HPI Skin/Breast: Reports system reviewed and no additional complaints, except as docu and Reports as per HPI Reports system reviewed and no additional complaints, except as documented, Reports memory loss and Reports weakness Psychiatric: Reports no additional psychiatric complaints, Reports anxiety, Reports change in appetite, Reports depression, Reports difficulty concentrating and Reports memory loss Endocrine: Reports no additional endocrine complaints and Reports fatigue Hematologic/Lymphatic: Reports no additional hematologic/lymphatic complaints Allergic/Immunologic: Reports no additional allergic/immunologic complaints Mental Status Exam Mental Status Exam Narrative: Appearance: mask-like facial expression, wearing hospital gown, fair hygiene, in NAD Behavior:cooperative Psychomotor: no resting tremors, no agitation or retardation noted Speech: clear, some delayed in response, spontaneous TP: linear TC: feeling better Mood: today is a good day Affect: congruent, with somewhat of a mask-like expression SI: denies HI: denies VH/AH:none Delusions: none Insight/judgment: fair x 2 Memory/cog: alert, oriented x 3. MOCA 18/30--> most impairment on visuo spatial, executive function, recall. with intact orientation and language. Patient Appearance: Disheveled and Unkempt Patient Orientation: Person, Place and Situation Level of Consciousness: Awake Patient Behavior: Appropriate, Cooperative, Anxious and Fatigued Mood Description: Anxious and Sad Affect Description: Withdrawn and Anxious Patient Cognition Impaired: Yes Ability to Follow Directions: Good Speech Pattern: Whisper Memory Description: Remote Impaired, Immediate Impaired and Recent Impaired Diagnostics Vital Signs (24Hr): Vital Signs - 24 hr 03/17/23 19:52 03/18/23 08:00 Temperature 97.6 F 98.2 F Pulse Rate 87 85 Respiratory Rate 16 18 Blood Pressure 132/83 162/92 H Pulse Oximetry 97 98 Oxygen Delivery Method Room Air Room Air BMI result Body Mass Index 19.4 Labs 03/10/23 13:52 03/10/23 13:52 Imaging Radiology Impressions: ITS Impressions Head CT 03/10/23 13:17 Impression: Normal nonenhanced head CT Chest X-Ray 03/10/23 13:20 IMPRESSION: Unremarkable examination. Abdomen Ultrasound 03/10/23 13:45 IMPRESSION: * No acute sonographic abnormalities within the examined abdomen. * No evidence of cholelithiasis, cholecystitis or biliary tract obstruction. * Incidentally noted are a few benign hepatic cysts. Medications Medications Current Medications Amlodipine Besylate (Amlodipine Besylate 5 Mg Tablet) 5 mg PO DAILY [facility]; Protocol Atorvastatin Calcium (Atorvastatin Calcium 10 Mg Tablet) 10 mg PO BEDTIME [facility] Last Admin: 03/17/23 20:55 Dose: 10 mg Escitalopram Oxalate (Escitalopram Oxalate 10 Mg Tablet) 10 mg PO DAILY [facility] Last Admin: 03/18/23 08:08 Dose: 10 mg Fluticasone Propionate (Fluticasone Propionate Nasal 16 Gm [place]) 1 spray NOSTRIL-B DAILY PRN PRN Reason: Allergy Symptoms Hydroxyzine HCl (Hydroxyzine Hcl 25 Mg Tablet) 25 mg PO BEDTIME [facility] Lorazepam (Lorazepam 0.5 Mg Tablet) 0.5 mg PO DAILY@0800,1300,1700 [facility] Last Admin: 03/18/23 12:35 Dose: 0.5 mg Lorazepam (Lorazepam 0.5 Mg Tablet) 0.5 mg PO BID PRN PRN Reason: Anxiety Last Admin: 03/18/23 01:05 Dose: 0.5 mg Metoprolol Tartrate (Metoprolol Tartrate 25 Mg Tablet) 25 mg PO DAILY [facility]; Protocol Last Admin: 03/18/23 08:08 Dose: 25 mg Montelukast Sodium (Montelukast Sodium 10 Mg Tablet) 10 mg PO DAILY [facility] Last Admin: 03/18/23 08:09 Dose: Not Given Omeprazole (Omeprazole 20 Mg Capsule.Dr) 20 mg PO DAILY@0630 [facility] Last Admin: 03/18/23 06:19 Dose: 20 mg Ondansetron HCl (Ondansetron Odt 4 Mg Tab.Rapdis) 4 mg TRANSLINGU Q6H PRN PRN Reason: nausea/vomiting Last Admin: 03/18/23 06:23 Dose: 4 mg Senna/Docusate Sodium (Sennosides/Docusate Sodium Tablet) 2 tab PO BID [facility] Last Admin: 03/18/23 08:08 Dose: 2 tab Simethicone (Simethicone 80 Mg Tab.Chew) 80 mg PO TID [facility] Last Admin: 03/18/23 15:51 Dose: 80 mg Trazodone HCl (Trazodone Hcl 25 Mg Halftab) 25 mg PO BEDTIME PRN PRN Reason: insomnia Allergies Allergies Allergy/AdvReac Type Severity Reaction Status Date / Time No Known Allergies Allergy Verified 03/10/23 11:57 Assessment & Plan Assessment & Plan (1) Abdominal pain, epigastric: Status: Inactive Code(s): R10.13 - Epigastric pain Assessment and Plan: From Cardiology: Patient with atypical discomfort which gets worse with anxiety. Possibly anxiety driven epigastric discomfort. Although he has multiple risk factors for CAD. With suggest exercise myocardial perfusion imaging to further evaluate for the same. His blood pressure is not well control and will consider adding amlodipine 5 mg to his regimen and switch his simvastatin to atorvastatin 20 mg to avoid interaction. He had an echocardiogram with his primary care physician this needs to be obtained. Further testing based on the findings of stress test. If he has no significant myocardial ischemia would pursue treating his mental disorder more aggressively. Will follow up if need be after the stress test Asessment: 72 year-old male who was brought by family due to severe anxious mood exacerbated by GI symptoms of unclear etiology including epigastric pain, nausea, weight loss of more than 30Lbs in past 3 months. He also presents with gait abnormalities- shuffling gait, limited movement of limbs when walking, decrease eye blinking no tremors, mask-like facial expression, MOCA does show some cognitive impairment/decline with significant impairment in executive function/visuospatial skills, and recall (0/5) with fairly intact orientation, attention and language (repetition/fluency and naming). Pt tolerating lexapro and gets relief from ativan. Plan Continue treatment plan lexapro 10 mg daily started on amlopidine 5 mg daily started on hydroxyzine for sleep foloow up with cardiology as needed continue to aseess mental status and cognition as anxiety and depresson improve (2) MDD (major depressive disorder), single episode with atypical features: Status: Acute Code(s): F32.9 - Major depressive disorder, single episode, unspecified (3) MARTY (generalized anxiety disorder): Status: Acute Code(s): F41.1 - Generalized anxiety disorder (4) Mild cognitive disorder: Status: Acute Code(s): F09 - Unspecified mental disorder due to known physiological condition Plan see above Patient educated on: diagnosis, medication risk/benefits, therapeutic strategies and medical condition Guardian/Caregiver educated on: diagnosis, medication risk/benefits, therapeutic strategies and medical condition Informed Consent: understands and further education needed Reason for continued inpatient stay Substantial Risk for: inability to function, rapid decompensation and med/psych decompensation Time Spent With Patient Time: Total time managing care of this patient today ____ minutes.
[2023-03-18 19:56] VITALS: BP 122/72; PULSE 87; RESP 16; TEMP 36.3; O2SAT 96
[2023-03-18] MEDS: hydrOXYzine HCL 25 MG TABLET PO (20:38)
[2023-03-18] MEDS: Atorvastatin Calcium 10 MG TABLET PO (20:38)
[2023-03-19 06:00] VITALS: BP 84/55; PULSE 88; RESP 18; TEMP 36.2; O2SAT 98
[2023-03-19] MEDS: Omeprazole 20 MG CAPSULE.DR PO (06:11)
[2023-03-19] MEDS: LORazepam 0.5 MG TABLET PO ×4 (08:09→21:02)
[2023-03-19] MEDS: Simethicone 80 MG TAB.CHEW PO ×3 (08:10→21:02)
[2023-03-19] MEDS: Escitalopram Oxalate 10 MG TABLET PO (08:10)
[2023-03-19] MEDS: Sennosides/Docusate Sodium TABLET 2 TAB PO ×2 (08:10→21:02)
--- NOTE | 2023-03-19 09:00 | CA_ITS ---
Acquisition Time: 2023-03-20 09:03:01 Total Exercise Time: 00:07:31 Test Indications: CP/EPIGASTRIC PAIN Medications: Protocol: LILA Max HR: 121 BPM 82% of Pred: 147 BPM Max BP: 126/054 mmHG Max Work Load: 5.9 METS Exercise stress test exercise 7 min 31 sec of Lila protocol (manual increase due to shuffling gait. max speed 2 mph and 12.5% grade)( achieving 82% MPHR, with mild SOB, no chest discomfort, without arrhythmias, with normotensive response to exercise, without EKG changes. Nuclear images pending. Test reviewed with Dr. Romero. Referred By: Cody Moore Overread By: Anahy Simpson
[2023-03-19] MEDS: Ondansetron ODT 4 MG TAB.RAPDIS TRANSLINGU (11:05)
[2023-03-19 13:20] VITALS: BMI 19.4
--- NOTE | 2023-03-19 15:03 | HO.PSYCHPN ---
Subjective Subjective Date of Service: 03/20/23 Reason For Visit: failure to thrive Subjective Notes: Conditional Voluntary Healthcare Proxy: Yes Interim History: Pt reports feeling less anxious. He does appear somewhat overwhelmed when questions asks as he has been deflecting to to provide most information. He reports GI symptoms less and he has been eating more. He denies SI/HI. he reports fair sleep. No behavioral concerns. Pt had stress test this morning awaiting results. Mental Status Exam Mental Status Exam Narrative: Appearance: mask-like facial expression, wearing hospital gown, fair hygiene, in NAD Behavior:cooperative Psychomotor: no resting tremors, no agitation or retardation noted Speech: clear, some delayed in response, spontaneous TP: linear TC: feeling better Mood: today is a good day Affect: congruent, with somewhat of a mask-like expression SI: denies HI: denies VH/AH:none Delusions: none Insight/judgment: fair x 2 Memory/cog: alert, oriented x 3. MOCA 18--> most impairment on visuo spatial, executive function, recall. with intact orientation and language. Diagnostics Vital Signs (24Hr): Vital Signs - 24 hr 03/18/23 19:56 03/19/23 06:00 Temperature 97.4 F 97.2 F Pulse Rate 87 88 Respiratory Rate 16 18 Blood Pressure 122/72 84/55 L Pulse Oximetry 96 98 Oxygen Delivery Method Room Air Room Air BMI result Body Mass Index 19.4 Labs 03/10/23 13:52 03/10/23 13:52 Imaging Radiology Impressions: ITS Impressions Head CT 03/10/23 13:17 Impression: Normal nonenhanced head CT Chest X-Ray 03/10/23 13:20 IMPRESSION: Unremarkable examination. Abdomen Ultrasound 03/10/23 13:45 IMPRESSION: * No acute sonographic abnormalities within the examined abdomen. * No evidence of cholelithiasis, cholecystitis or biliary tract obstruction. * Incidentally noted are a few benign hepatic cysts. Medications Medications Current Medications Amlodipine Besylate (Amlodipine Besylate 5 Mg Tablet) 5 mg PO DAILY [facility]; Protocol Last Admin: 03/19/23 08:10 Dose: Not Given Atorvastatin Calcium (Atorvastatin Calcium 10 Mg Tablet) 10 mg PO BEDTIME [facility] Last Admin: 03/18/23 20:38 Dose: 10 mg Escitalopram Oxalate (Escitalopram Oxalate 10 Mg Tablet) 10 mg PO DAILY [facility] Last Admin: 03/19/23 08:10 Dose: 10 mg Fluticasone Propionate (Fluticasone Propionate Nasal 16 Gm [place]) 1 spray NOSTRIL-B DAILY PRN PRN Reason: Allergy Symptoms Hydroxyzine HCl (Hydroxyzine Hcl 25 Mg Tablet) 25 mg PO BEDTIME [facility] Last Admin: 03/18/23 20:38 Dose: 25 mg Lorazepam (Lorazepam 0.5 Mg Tablet) 0.5 mg PO DAILY@0800,1300,1700 [facility] Last Admin: 03/19/23 12:55 Dose: 0.5 mg Lorazepam (Lorazepam 0.5 Mg Tablet) 0.5 mg PO BID PRN PRN Reason: Anxiety Last Admin: 03/18/23 22:42 Dose: 0.5 mg Metoprolol Tartrate (Metoprolol Tartrate 25 Mg Tablet) 25 mg PO DAILY [facility]; Protocol Last Admin: 03/19/23 08:32 Dose: Not Given Montelukast Sodium (Montelukast Sodium 10 Mg Tablet) 10 mg PO DAILY [facility] Last Admin: 03/19/23 08:11 Dose: Not Given Omeprazole (Omeprazole 20 Mg Capsule.Dr) 20 mg PO DAILY@0630 [facility] Last Admin: 03/19/23 06:11 Dose: 20 mg Ondansetron HCl (Ondansetron Odt 4 Mg Tab.Rapdis) 4 mg TRANSLINGU Q6H PRN PRN Reason: nausea/vomiting Last Admin: 03/19/23 11:05 Dose: 4 mg Senna/Docusate Sodium (Sennosides/Docusate Sodium Tablet) 2 tab PO BID [facility] Last Admin: 03/19/23 08:10 Dose: 2 tab Simethicone (Simethicone 80 Mg Tab.Chew) 80 mg PO TID [facility] Last Admin: 03/19/23 08:10 Dose: 80 mg Trazodone HCl (Trazodone Hcl 25 Mg Halftab) 25 mg PO BEDTIME PRN PRN Reason: insomnia Allergies Allergies Allergy/AdvReac Type Severity Reaction Status Date / Time No Known Allergies Allergy Verified 03/10/23 11:57 Assessment & Plan Assessment & Plan (1) MDD (major depressive disorder), single episode with atypical features: Status: Acute Code(s): F32.9 - Major depressive disorder, single episode, unspecified (2) Abdominal pain, epigastric: Status: Inactive Code(s): R10.13 - Epigastric pain Assessment and Plan: From Cardiology: Patient with atypical discomfort which gets worse with anxiety. Possibly anxiety driven epigastric discomfort. Although he has multiple risk factors for CAD. With suggest exercise myocardial perfusion imaging to further evaluate for the same. His blood pressure is not well control and will consider adding amlodipine 5 mg to his regimen and switch his simvastatin to atorvastatin 20 mg to avoid interaction. He had an echocardiogram with his primary care physician this needs to be obtained. Further testing based on the findings of stress test. If he has no significant myocardial ischemia would pursue treating his mental disorder more aggressively. Will follow up if need be after the stress test Asessment: 72 year-old male who was brought by family due to severe anxious mood exacerbated by GI symptoms of unclear etiology including epigastric pain, nausea, weight loss of more than 30Lbs in past 3 months. He also presents with gait abnormalities- shuffling gait, limited movement of limbs when walking, decrease eye blinking no tremors, mask-like facial expression, MOCA does show some cognitive impairment/decline with significant impairment in executive function/visuospatial skills, and recall (0/5) with fairly intact orientation, attention and language (repetition/fluency and naming). Pt tolerating lexapro and gets relief from ativan. Plan Continue treatment plan lexapro 10 mg daily started on amlopidine 5 mg daily started on hydroxyzine for sleep foloow up with cardiology as needed continue to aseess mental status and cognition as anxiety and depresson improve (3) MARTY (generalized anxiety disorder): Status: Acute Code(s): F41.1 - Generalized anxiety disorder (4) Mild cognitive disorder: Status: Acute Code(s): F09 - Unspecified mental disorder due to known physiological condition Plan 03/19 continue current tx. Reason for continued inpatient stay Substantial Risk for: inability to function Time Spent With Patient Time: Total time managing care of this patient today ____ minutes.
[2023-03-19 18:00] VITALS: BP 120/75; PULSE 84; RESP 18; TEMP 37.1; O2SAT 97
[2023-03-19] MEDS: traZODone HCL 25 MG HALFTAB PO (21:02)
[2023-03-19] MEDS: Atorvastatin Calcium 10 MG TABLET PO (21:02)
[2023-03-19] MEDS: hydrOXYzine HCL 25 MG TABLET PO (21:02)
[2023-03-20] MEDS: LORazepam 0.5 MG TABLET PO ×4 (01:24→16:54)
[2023-03-20 06:00] VITALS: BP 114/67; PULSE 99; RESP 16; TEMP 36.1; O2SAT 96
[2023-03-20] MEDS: Omeprazole 20 MG CAPSULE.DR PO (06:34)
[2023-03-20] MEDS: Simethicone 80 MG TAB.CHEW PO ×3 (07:49→21:06)
[2023-03-20] MEDS: Escitalopram Oxalate 10 MG TABLET PO (07:50)
[2023-03-20] MEDS: Ondansetron ODT 4 MG TAB.RAPDIS TRANSLINGU (07:50)
[2023-03-20] MEDS: amLODIPine Besylate 5 MG TABLET PO (07:50)
[2023-03-20] MEDS: Sennosides/Docusate Sodium TABLET 2 TAB PO ×2 (07:50→21:06)
--- NOTE | 2023-03-20 10:32 | HO.PSYCHPN ---
Subjective Subjective Date of Service: 03/20/23 Reason For Visit: failure to thrive Subjective Notes: Conditional Voluntary Interim History: Pt reports feeling better, less anxious, less GI concerns. He reports mood better, that he is missing his and family and hopes to go back home soon. Medication Compliance: Yes Side effects from medications: No Review of Systems Review of Systems Yes all other systems are reviewed and are negative Constitutional: Reports as per HPI, Reports no additional constitutional complaints, Reports fatigue, Reports lethargy, Reports poor appetite, Reports weakness and Reports weight loss Eyes: Reports as per HPI and Denies no additional eye complaints Denies system reviewed and no additional complaints, except as documented and Reports as per HPI Cardiovascular: Reports as per HPI, Reports no additional cardiovascular complaints, Denies acrocyanosis, Denies cool extremities, Denies chest pain, Denies chest pain with activity, Reports epigastric discomfort, Denies leg edema, Denies lightheadedness, Denies palpitations, Denies dyspnea, Denies dyspnea on exertion and Denies paroxysmal nocturnal dyspnea Respiratory: Reports as per HPI, Denies no additional respiratory complaints, Denies dyspnea and Denies dyspnea on exertion Gastrointestinal: Reports as per HPI and Denies no additional gastrointestinal complaints Genitourinary: Reports no additional male genitourinary complaints and Reports as per HPI Musculoskeletal: Reports no additional musculoskeletal complaints and Reports as per HPI Skin/Breast: Reports system reviewed and no additional complaints, except as docu and Reports as per HPI Reports system reviewed and no additional complaints, except as documented, Reports as per HPI, Reports memory loss and Reports weakness Psychiatric: Reports no additional psychiatric complaints, Reports as per HPI, Reports anxiety, Reports change in appetite, Reports depression, Reports difficulty concentrating and Reports memory loss Endocrine: Reports no additional endocrine complaints, Reports as per HPI, Reports fatigue and Denies palpitations Hematologic/Lymphatic: Reports no additional hematologic/lymphatic complaints and Reports as per HPI Allergic/Immunologic: Reports no additional allergic/immunologic complaints and Reports as per HPI Mental Status Exam Mental Status Exam Narrative: Appearance: mask-like facial expression, wearing hospital gown, fair hygiene, in NAD Behavior:cooperative Psychomotor: no resting tremors, no agitation or retardation noted Speech: clear, some delayed in response, spontaneous TP: linear TC: feeling better Mood: today is a good day Affect: congruent, with somewhat of a mask-like expression SI: denies HI: denies VH/AH:none Delusions: none Insight/judgment: fair x 2 Memory/cog: alert, oriented x 3. MOCA 30--> most impairment on visuo spatial, executive function, recall. with intact orientation and language. Diagnostics Vital Signs (24Hr): Vital Signs - 24 hr 03/19/23 18:00 03/20/23 06:00 Temperature 98.8 F 97.0 F Pulse Rate 84 99 Respiratory Rate 18 16 Blood Pressure 120/75 114/67 Pulse Oximetry 97 96 Oxygen Delivery Method Room Air Room Air BMI result Body Mass Index 19.4 Labs 03/10/23 13:52 03/10/23 13:52 Imaging Radiology Impressions: ITS Impressions Head CT 03/10/23 13:17 Impression: Normal nonenhanced head CT Chest X-Ray 03/10/23 13:20 IMPRESSION: Unremarkable examination. Abdomen Ultrasound 03/10/23 13:45 IMPRESSION: * No acute sonographic abnormalities within the examined abdomen. * No evidence of cholelithiasis, cholecystitis or biliary tract obstruction. * Incidentally noted are a few benign hepatic cysts. Medications Medications Current Medications Amlodipine Besylate (Amlodipine Besylate 5 Mg Tablet) 5 mg PO DAILY JAY; Protocol Last Admin: 03/20/23 07:50 Dose: 5 mg Atorvastatin Calcium (Atorvastatin Calcium 10 Mg Tablet) 10 mg PO BEDTIME JAY Last Admin: 03/19/23 21:02 Dose: 10 mg Escitalopram Oxalate (Escitalopram Oxalate 10 Mg Tablet) 10 mg PO DAILY JAY Last Admin: 03/20/23 07:50 Dose: 10 mg Fluticasone Propionate (Fluticasone Propionate Nasal 16 Gm [place]) 1 spray NOSTRIL-B DAILY PRN PRN Reason: Allergy Symptoms Hydroxyzine HCl (Hydroxyzine Hcl 25 Mg Tablet) 25 mg PO BEDTIME JAY Last Admin: 03/19/23 21:02 Dose: 25 mg Lorazepam (Lorazepam 0.5 Mg Tablet) 0.5 mg PO DAILY@0800,1300,1700 [facility] Last Admin: 03/20/23 07:49 Dose: 0.5 mg Lorazepam (Lorazepam 0.5 Mg Tablet) 0.5 mg PO BID PRN PRN Reason: Anxiety Last Admin: 03/20/23 01:24 Dose: 0.5 mg Metoprolol Tartrate (Metoprolol Tartrate 25 Mg Tablet) 25 mg PO DAILY JAY; Protocol Last Admin: 03/20/23 07:51 Dose: Not Given Omeprazole (Omeprazole 20 Mg Capsule.) 20 mg PO DAILY@0630 [facility] Last Admin: 03/20/23 06:34 Dose: 20 mg Ondansetron HCl (Ondansetron Odt 4 Mg Tab.Rapdis) 4 mg TRANSLINGU Q6H PRN PRN Reason: nausea/vomiting Last Admin: 03/20/23 07:50 Dose: 4 mg Senna/Docusate Sodium (Sennosides/Docusate Sodium Tablet) 2 tab PO BID [facility] Last Admin: 03/20/23 07:50 Dose: 2 tab Simethicone (Simethicone 80 Mg Tab.Chew) 80 mg PO TID [facility] Last Admin: 03/20/23 07:49 Dose: 80 mg Trazodone HCl (Trazodone Hcl 25 Mg Halftab) 25 mg PO BEDTIME PRN PRN Reason: insomnia Last Admin: 03/19/23 21:02 Dose: 25 mg Allergies Allergies Allergy/AdvReac Type Severity Reaction Status Date / Time No Known Allergies Allergy Verified 03/10/23 11:57 Assessment & Plan Assessment & Plan (1) MDD (major depressive disorder), single episode with atypical features: Status: Acute Code(s): F32.9 - Major depressive disorder, single episode, unspecified (2) Abdominal pain, epigastric: Status: Inactive Code(s): R10.13 - Epigastric pain Assessment and Plan: From Cardiology: Patient with atypical discomfort which gets worse with anxiety. Possibly anxiety driven epigastric discomfort. Although he has multiple risk factors for CAD. With suggest exercise myocardial perfusion imaging to further evaluate for the same. His blood pressure is not well control and will consider adding amlodipine 5 mg to his regimen and switch his simvastatin to atorvastatin 20 mg to avoid interaction. He had an echocardiogram with his primary care physician this needs to be obtained. Further testing based on the findings of stress test. If he has no significant myocardial ischemia would pursue treating his mental disorder more aggressively. Will follow up if need be after the stress test Asessment: 72 year-old male who was brought by family due to severe anxious mood exacerbated by GI symptoms of unclear etiology including epigastric pain, nausea, weight loss of more than 30Lbs in past 3 months. He also presents with gait abnormalities- shuffling gait, limited movement of limbs when walking, decrease eye blinking no tremors, mask-like facial expression, MOCA does show some cognitive impairment/decline with significant impairment in executive function/visuospatial skills, and recall (0/5) with fairly intact orientation, attention and language (repetition/fluency and naming). Pt tolerating lexapro and gets relief from ativan. (3) MARTY (generalized anxiety disorder): Status: Acute Code(s): F41.1 - Generalized anxiety disorder (4) Mild cognitive disorder: Status: Acute Code(s): F09 - Unspecified mental disorder due to known physiological condition Plan 03/19 continue current tx. 03/20 continue tx. Reason for continued inpatient stay Substantial Risk for: inability to function Time Spent With Patient Time: Total time managing care of this patient today ____ minutes.
[2023-03-20 18:00] VITALS: BP 130/69; PULSE 87; RESP 18; TEMP 36.8; O2SAT 98
[2023-03-20] MEDS: Atorvastatin Calcium 10 MG TABLET PO (21:06)
[2023-03-20] MEDS: hydrOXYzine HCL 25 MG TABLET PO (21:06)
[2023-03-20] MEDS: traZODone HCL 25 MG HALFTAB PO (21:15)
[2023-03-21] MEDS: Omeprazole 20 MG CAPSULE.DR PO (06:02)
[2023-03-21 08:10] VITALS: BP 100/58; PULSE 88; RESP 18; TEMP 36.6; O2SAT 99
[2023-03-21] MEDS: LORazepam 0.5 MG TABLET PO ×3 (09:12→16:25)
[2023-03-21] MEDS: Metoprolol Tartrate 25 MG TABLET PO (09:13)
[2023-03-21] MEDS: Escitalopram Oxalate 10 MG TABLET PO (09:14)
[2023-03-21] MEDS: amLODIPine Besylate 5 MG TABLET PO (09:14)
--- NOTE | 2023-03-21 09:17 | P.PNCA_ITS ---
Subjective Subjective Date of Service: 03/21/23 Interval history: He states that he is feeling okay. No chest pain. The pain he has had in the past seems to be rather epigastric and that apparently happens mainly with anxiety and not exertional. No previous history of cardiac issues per patient. Review of Systems Review of Systems Yes all other systems are reviewed and are negative Constitutional: Reports as per HPI and Reports no additional constitutional complaints Eyes: Reports as per HPI and Denies no additional eye complaints Denies system reviewed and no additional complaints, except as documented and Reports as per HPI Cardiovascular: Reports as per HPI, Reports no additional cardiovascular complaints, Denies acrocyanosis, Denies cool extremities, Denies chest pain, Denies leg edema, Denies lightheadedness, Denies palpitations and Denies dyspnea Respiratory: Reports as per HPI, Denies no additional respiratory complaints and Denies dyspnea Gastrointestinal: Reports as per HPI and Denies no additional gastrointestinal complaints Genitourinary: Reports no additional male genitourinary complaints and Reports as per HPI Musculoskeletal: Reports no additional musculoskeletal complaints and Reports as per HPI Skin/Breast: Reports system reviewed and no additional complaints, except as docu Reports system reviewed and no additional complaints, except as documented and Reports as per HPI Psychiatric: Reports no additional psychiatric complaints and Reports as per HPI Endocrine: Reports no additional endocrine complaints, Reports as per HPI and Denies palpitations Hematologic/Lymphatic: Reports no additional hematologic/lymphatic complaints and Reports as per HPI Allergic/Immunologic: Reports no additional allergic/immunologic complaints and Reports as per HPI Physical Exam Vital Signs: Last Vital Signs Temp 97.8 F 03/21/23 08:10 Pulse 88 03/21/23 08:10 Resp 18 03/21/23 08:10 BP 100/58 L 03/21/23 08:10 Pulse Ox 99 03/21/23 08:10 O2 Del Method Room Air 03/21/23 08:10 BMI result Body Mass Index 19.4 Const General: comfortable and no acute distress Orientation/consciousness: patient oriented x3 HEENT Other: Unremarkable Head: Yes normal to inspection Neck Neck: Yes normal visual inspection Chest Chest palpation & inspection: normal inspection of the chest Resp Auscultation: clear to auscultation bilaterally Cardio Palpation: normal PMI Heart sounds: S1 normal heart sound present, S2 normal heart sound present, no gallops, no murmurs and no rubs GI Palpation (GI): Soft to palpation Back/Spine/Pelvis Other: unremarkable Skin General skin exam: no rashes or lesions noted Neuro General: patient oriented x3 Extrem General: Yes normal to inspection Psych Mental Status: mental status grossly normal Objective Labs and Meds 03/10/23 13:52 03/10/23 13:52 Imaging Radiologist's impression: Impressions Myocardial Perfusion Scan Nuc Med 03/20/23 10:15 Impression: 1. Likely normal myocardial perfusion 2. Gated LVEF is 51% 3. Transient ischemic dilatation not present Stress EKG is negative for ischemia Progress Note: A&P Assessment and plan (1) Atypical chest pain: Status: Acute Plan Cardiac studies reviewed. EKG shows underlying sinus rhythm with an incomplete right bundle-branch block pattern with left anterior fascicular block. Rate 89/Min. Recent high sensitivity troponin within normal limits. In the recent echocardiogram from [facility], LVEF 60-65%; no regional wall motion abnormality; mild aortic/mitral valve thickening; mild ascending aortic dilatation at 4 cm. Myocardial perfusion imaging study was unremarkable at 5.9 Mets exercise capacity. Overall, noncardiac etiology for his epigastric pain. Will hold off further workup at this time. 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 Time Spent With Patient Time: Total time managing care of this patient today ____ minutes. Procedures Date of Service Date of Service: 03/21/23
[2023-03-21] MEDS: Sennosides/Docusate Sodium TABLET 2 TAB PO ×2 (09:21→20:20)
[2023-03-21 09:27] LABS: Syphilis Screen Nonreactive (Nonreactive)
--- NOTE | 2023-03-21 11:52 | MHC.CLN ---
F/U DIET=REGULAR. MAGIC CUP BID PROVIDES 580 KCALS, 18 G PROTEIN. PATIENT STATED THAT HE LIKES ICE CREAM. SIGNIFICANT WEIGHT LOSS OF 30#, 18%, X 6 MONTHS REPORTED BY PATIENT. ATTRIBUTES WEIGHT LOSS DUE TO ABDOMINAL PAIN AND DECREASED APPETITE WHEN EXPERIENCING ANXIETY. BMI=19.4, WITHIN NORMAL LIMITS, BUT PATIENT IS UNDERWEIGHT AT 83% OF IBW. APPEARS TO BE TOLERATNG PO. FOLLOW FOR INTAKE AND WEIGHT.
[2023-03-21] MEDS: Simethicone 80 MG TAB.CHEW PO ×2 (14:56→20:20)
[2023-03-21 18:00] VITALS: BP 90/54; PULSE 82; TEMP 36.2; O2SAT 98
[2023-03-21] MEDS: hydrOXYzine HCL 25 MG TABLET PO (20:20)
[2023-03-21] MEDS: Atorvastatin Calcium 10 MG TABLET PO (20:20)
--- NOTE | 2023-03-21 20:30 | HO.PSYCHPN ---
Subjective Subjective Date of Service: 03/21/23 Reason For Visit: failure to thrive Subjective Notes: Conditional Voluntary Healthcare Proxy: Yes Interim History: Pt reports he is feeling bored here on the unit but better than when he came in. Pt reports feeling better, less anxious, less GI concerns. He reports mood better, that he is missing his and family and hopes to go back home soon. He denies SI/HI. No signs of VH/AH. Review of Systems Review of Systems Yes all other systems are reviewed and are negative Constitutional: Reports as per HPI, Reports no additional constitutional complaints, Reports fatigue, Reports lethargy, Reports poor appetite, Reports weakness and Reports weight loss Eyes: Reports as per HPI and Denies no additional eye complaints Denies system reviewed and no additional complaints, except as documented and Reports as per HPI Cardiovascular: Reports as per HPI, Reports no additional cardiovascular complaints, Denies acrocyanosis, Denies cool extremities, Denies chest pain, Denies chest pain with activity, Reports epigastric discomfort, Denies leg edema, Denies lightheadedness, Denies palpitations, Denies dyspnea, Denies dyspnea on exertion and Denies paroxysmal nocturnal dyspnea Respiratory: Reports as per HPI, Denies no additional respiratory complaints, Denies dyspnea and Denies dyspnea on exertion Gastrointestinal: Reports as per HPI and Denies no additional gastrointestinal complaints Genitourinary: Reports no additional male genitourinary complaints and Reports as per HPI Musculoskeletal: Reports no additional musculoskeletal complaints and Reports as per HPI Skin/Breast: Reports system reviewed and no additional complaints, except as docu and Reports as per HPI Reports system reviewed and no additional complaints, except as documented, Reports as per HPI, Reports memory loss and Reports weakness Psychiatric: Reports no additional psychiatric complaints, Reports as per HPI, Reports anxiety, Reports change in appetite, Reports depression, Reports difficulty concentrating and Reports memory loss Endocrine: Reports no additional endocrine complaints, Reports as per HPI, Reports fatigue and Denies palpitations Hematologic/Lymphatic: Reports no additional hematologic/lymphatic complaints and Reports as per HPI Allergic/Immunologic: Reports no additional allergic/immunologic complaints and Reports as per HPI Mental Status Exam Mental Status Exam Narrative: Appearance: mask-like facial expression, wearing hospital gown, fair hygiene, in NAD Behavior:cooperative Psychomotor: no resting tremors, no agitation or retardation noted Speech: clear, some delayed in response, spontaneous TP: linear TC: feeling better Mood: today is a good day Affect: congruent, with somewhat of a mask-like expression SI: denies HI: denies VH/AH:none Delusions: none Insight/judgment: fair x 2 Memory/cog: alert, oriented x 3. MOCA --> most impairment on visuo spatial, executive function, recall. with intact orientation and language. Diagnostics Vital Signs (24Hr): Vital Signs - 24 hr 03/21/23 08:10 Temperature 97.8 F Pulse Rate 88 Respiratory Rate 18 Blood Pressure 100/58 L Pulse Oximetry 99 Oxygen Delivery Method Room Air BMI result Body Mass Index 19.4 Labs 03/10/23 13:52 03/10/23 13:52 Labs: Laboratory Results - last 48 hr 03/21/23 07:52 T.pallidum Ab (EIA) Nonreactive Imaging Radiology Impressions: ITS Impressions Head CT 03/10/23 13:17 Impression: Normal nonenhanced head CT Chest X-Ray 03/10/23 13:20 IMPRESSION: Unremarkable examination. Abdomen Ultrasound 03/10/23 13:45 IMPRESSION: * No acute sonographic abnormalities within the examined abdomen. * No evidence of cholelithiasis, cholecystitis or biliary tract obstruction. * Incidentally noted are a few benign hepatic cysts. Myocardial Perfusion Scan Nuc Med 03/20/23 10:15 Impression: 1. Likely normal myocardial perfusion 2. Gated LVEF is 51% 3. Transient ischemic dilatation not present Stress EKG is negative for ischemia Medications Medications Current Medications Amlodipine Besylate (Amlodipine Besylate 5 Mg Tablet) 5 mg PO DAILY [facility]; Protocol Last Admin: 03/21/23 09:14 Dose: 5 mg Atorvastatin Calcium (Atorvastatin Calcium 10 Mg Tablet) 10 mg PO BEDTIME [facility] Last Admin: 03/21/23 20:20 Dose: 10 mg Escitalopram Oxalate (Escitalopram Oxalate 10 Mg Tablet) 10 mg PO DAILY [facility] Last Admin: 03/21/23 09:14 Dose: 10 mg Fluticasone Propionate (Fluticasone Propionate Nasal 16 Gm [place]) 1 spray NOSTRIL-B DAILY PRN PRN Reason: Allergy Symptoms Hydroxyzine HCl (Hydroxyzine Hcl 25 Mg Tablet) 25 mg PO BEDTIME [facility] Last Admin: 03/21/23 20:20 Dose: 25 mg Lorazepam (Lorazepam 0.5 Mg Tablet) 0.5 mg PO DAILY@0800,1300,1700 [facility] Last Admin: 03/21/23 16:25 Dose: 0.5 mg Lorazepam (Lorazepam 0.5 Mg Tablet) 0.5 mg PO BID PRN PRN Reason: Anxiety Metoprolol Tartrate (Metoprolol Tartrate 25 Mg Tablet) 25 mg PO DAILY [facility]; Protocol Last Admin: 03/21/23 09:13 Dose: 25 mg Omeprazole (Omeprazole 20 Mg Capsule.Dr) 20 mg PO DAILY@0700 [facility] Ondansetron HCl (Ondansetron Odt 4 Mg Tab.Rapdis) 4 mg TRANSLINGU Q6H PRN PRN Reason: nausea/vomiting Last Admin: 03/20/23 07:50 Dose: 4 mg Senna/Docusate Sodium (Sennosides/Docusate Sodium Tablet) 2 tab PO BID [facility] Last Admin: 03/21/23 20:20 Dose: 2 tab Simethicone (Simethicone 80 Mg Tab.Chew) 80 mg PO TID [facility] Last Admin: 03/21/23 20:20 Dose: 80 mg Trazodone HCl (Trazodone Hcl 25 Mg Halftab) 25 mg PO BEDTIME PRN PRN Reason: insomnia Last Admin: 03/20/23 21:15 Dose: 25 mg Allergies Allergies Allergy/AdvReac Type Severity Reaction Status Date / Time No Known Allergies Allergy Verified 03/10/23 11:57 Assessment & Plan Assessment & Plan (1) MDD (major depressive disorder), single episode with atypical features: Status: Acute Code(s): F32.9 - Major depressive disorder, single episode, unspecified (2) Abdominal pain, epigastric: Status: Inactive Code(s): R10.13 - Epigastric pain Assessment and Plan: From Cardiology: Patient with atypical discomfort which gets worse with anxiety. Possibly anxiety driven epigastric discomfort. Although he has multiple risk factors for CAD. With suggest exercise myocardial perfusion imaging to further evaluate for the same. His blood pressure is not well control and will consider adding amlodipine 5 mg to his regimen and switch his simvastatin to atorvastatin 20 mg to avoid interaction. He had an echocardiogram with his primary care physician this needs to be obtained. Further testing based on the findings of stress test. If he has no significant myocardial ischemia would pursue treating his mental disorder more aggressively. Will follow up if need be after the stress test Asessment: 72 year-old male who was brought by family due to severe anxious mood exacerbated by GI symptoms of unclear etiology including epigastric pain, nausea, weight loss of more than 30Lbs in past 3 months. He also presents with gait abnormalities- shuffling gait, limited movement of limbs when walking, decrease eye blinking no tremors, mask-like facial expression, MOCA does show some cognitive impairment/decline with significant impairment in executive function/visuospatial skills, and recall (0/5) with fairly intact orientation, attention and language (repetition/fluency and naming). Pt tolerating lexapro and gets relief from ativan. (3) MARTY (generalized anxiety disorder): Status: Acute Code(s): F41.1 - Generalized anxiety disorder (4) Mild cognitive disorder: Status: Acute Code(s): F09 - Unspecified mental disorder due to known physiological condition Plan 03/19 continue current tx. 03/20 continue tx. 03/21 continue tx. Reason for continued inpatient stay Substantial Risk for: inability to function Time Spent With Patient Time: Total time managing care of this patient today ____ minutes.
[2023-03-22] MEDS: Omeprazole 20 MG CAPSULE.DR PO (06:07)
[2023-03-22] MEDS: LORazepam 0.5 MG TABLET PO ×4 (06:08→22:09)
[2023-03-22 07:00] VITALS: BMI 19.3
[2023-03-22 07:55] VITALS: BP 154/83; PULSE 72; RESP 18; TEMP 36.3; O2SAT 98
[2023-03-22] MEDS: Sennosides/Docusate Sodium TABLET 2 TAB PO ×2 (09:02→22:09)
[2023-03-22] MEDS: Simethicone 80 MG TAB.CHEW PO ×3 (09:02→22:09)
[2023-03-22] MEDS: Escitalopram Oxalate 10 MG TABLET PO (09:02)
[2023-03-22] MEDS: amLODIPine Besylate 5 MG TABLET PO (09:03)
[2023-03-22] MEDS: Metoprolol Tartrate 25 MG TABLET PO (09:03)
[2023-03-22] MEDS: Ondansetron ODT 4 MG TAB.RAPDIS TRANSLINGU (12:22)
--- NOTE | 2023-03-22 15:07 | P.PNPSI_ITS ---
Subjective Subjective Date of Service: 03/22/23 Reason For Visit: failure to thrive Subjective Notes: Conditional Voluntary Healthcare Proxy: Yes Interim History: Pt reports feeling less anxious, less depressed. He denies SI/HI. He reports feeling bored Family meeting to discuss findings- pointing to neurocognitive disorder. Neurology saw pt- recommended MR of cervical spine and brain MRI Diagnostics Vital Signs (24Hr): Vital Signs - 24 hr 03/21/23 18:00 03/22/23 07:55 Temperature 97.1 F 97.4 F Pulse Rate 82 72 Respiratory Rate 18 Blood Pressure 90/54 L 154/83 H Pulse Oximetry 98 98 Oxygen Delivery Method Room Air Room Air BMI result Body Mass Index 19.3 Labs 03/10/23 13:52 03/10/23 13:52 Labs: Laboratory Results - last 48 hr 03/21/23 07:52 T.pallidum Ab (EIA) Nonreactive Imaging Radiology Impressions: ITS Impressions Head CT 03/10/23 13:17 Impression: Normal nonenhanced head CT Chest X-Ray 03/10/23 13:20 IMPRESSION: Unremarkable examination. Abdomen Ultrasound 03/10/23 13:45 IMPRESSION: * No acute sonographic abnormalities within the examined abdomen. * No evidence of cholelithiasis, cholecystitis or biliary tract obstruction. * Incidentally noted are a few benign hepatic cysts. Myocardial Perfusion Scan Nuc Med 03/20/23 10:15 Impression: 1. Likely normal myocardial perfusion 2. Gated LVEF is 51% 3. Transient ischemic dilatation not present Stress EKG is negative for ischemia Medications Medications Current Medications Amlodipine Besylate (Amlodipine Besylate 5 Mg Tablet) 5 mg PO DAILY [facility]; Protocol Last Admin: 03/22/23 09:03 Dose: 5 mg Atorvastatin Calcium (Atorvastatin Calcium 10 Mg Tablet) 10 mg PO BEDTIME JAY Last Admin: 03/21/23 20:20 Dose: 10 mg Escitalopram Oxalate (Escitalopram Oxalate 10 Mg Tablet) 10 mg PO DAILY [facility] Last Admin: 03/22/23 09:02 Dose: 10 mg Fluticasone Propionate (Fluticasone Propionate Nasal 16 Gm [place]) 1 spray NOSTRIL-B DAILY PRN PRN Reason: Allergy Symptoms Lorazepam (Lorazepam 0.5 Mg Tablet) 0.5 mg PO DAILY@0800,1300,1700 [facility] Last Admin: 03/22/23 12:18 Dose: 0.5 mg Lorazepam (Lorazepam 0.5 Mg Tablet) 0.5 mg PO BID PRN PRN Reason: Anxiety Last Admin: 03/22/23 06:08 Dose: 0.5 mg Melatonin (Melatonin 3 Mg Tablet) 6 mg PO BEDTIME [facility] Metoprolol Tartrate (Metoprolol Tartrate 25 Mg Tablet) 25 mg PO DAILY [facility]; Protocol Last Admin: 03/22/23 09:03 Dose: 25 mg Omeprazole (Omeprazole 20 Mg Capsule.Dr) 20 mg PO DAILY@0700 [facility] Last Admin: 03/22/23 06:07 Dose: 20 mg Ondansetron HCl (Ondansetron Odt 4 Mg Tab.Rapdis) 4 mg TRANSLINGU Q6H PRN PRN Reason: nausea/vomiting Last Admin: 03/22/23 12:22 Dose: 4 mg Senna/Docusate Sodium (Sennosides/Docusate Sodium Tablet) 2 tab PO BID [facility] Last Admin: 03/22/23 09:02 Dose: 2 tab Simethicone (Simethicone 80 Mg Tab.Chew) 80 mg PO TID [facility] Last Admin: 03/22/23 14:41 Dose: 80 mg Allergies Allergies Allergy/AdvReac Type Severity Reaction Status Date / Time No Known Allergies Allergy Verified 03/10/23 11:57 Assessment & Plan Assessment & Plan (1) MDD (major depressive disorder), single episode with atypical features: Status: Acute Code(s): F32.9 - Major depressive disorder, single episode, unspecified (2) Abdominal pain, epigastric: Status: Inactive Code(s): R10.13 - Epigastric pain Assessment and Plan: From Cardiology: Patient with atypical discomfort which gets worse with anxiety. Possibly anxiety driven epigastric discomfort. Although he has multiple risk factors for CAD. With suggest exercise myocardial perfusion imaging to further evaluate for the same. His blood pressure is not well control and will consider adding amlodipine 5 mg to his regimen and switch his simvastatin to atorvastatin 20 mg to avoid interaction. He had an echocardiogram with his primary care physician this needs to be obtained. Further testing based on the findings of stress test. If he has no significant myocardial ischemia would pursue treating his mental disorder more aggressively. Will follow up if need be after the stress test Asessment: 72 year-old male who was brought by family due to severe anxious mood exacerbated by GI symptoms of unclear etiology including epigastric pain, nausea, weight loss of more than 30Lbs in past 3 months. He also presents with gait abnormalities- shuffling gait, limited movement of limbs when walking, decrease eye blinking no tremors, mask-like facial expression, MOCA does show some cognitive impairment/decline with significant impairment in executive function/visuospatial skills, and recall (0/5) with fairly intact orientation, attention and language (repetition/fluency and naming). Pt tolerating lexapro and gets relief from ativan. (3) MARTY (generalized anxiety disorder): Status: Acute Code(s): F41.1 - Generalized anxiety disorder (4) Mild cognitive disorder: Status: Acute Code(s): F09 - Unspecified mental disorder due to known physiological condition Plan 03/19 continue current tx. 03/20 continue tx. 03/21 ordered MRI cervical and brain per neurology recommendation Reason for continued inpatient stay Substantial Risk for: inability to function Time Spent With Patient Time: Total time managing care of this patient today ____ minutes.
--- NOTE | 2023-03-22 15:49 | P.CNNE_ITS ---
History of Present Illness Data of Consult Service Date: 03/22/23 Primary Care Provider: Daniel Arguello MD HPI Reason for consult: Gait disorder 72 years old man I was asked to see for possible Parkinson's. History was mostly obtained from chart apparently he did not have any prior history of any significant medical issues or psychiatric issues. During last few months he was noted to be somewhat confused her showing some mental symptoms or aggression. He was admitted hospital with combination of behavioral symptoms and abdominal discomfort and pain. It is not clear to me what exact and diagnosis for his GI symptom was but his abdominal ultrasound was reported without any significant finding. For last few days he was doing better in terms of behavior but he was noted to have some features suggestive of Parkinson's prompting this consultation. I called his home number to talk to his but she did not worm picker. There was no documented history of seizure disorder or any stroke-like symptoms. Review of Systems 2 Review of Systems: No complain of any significant headache or neck pain. [facility] Past Medical History Medical History (Updated 03/22/23 @ 15:56 by Jose E Hampton MD) Abdominal pain, epigastric Surgical History Surgical History Hx of colonoscopy Hx of tonsillectomy Social History Social History Household Members: Family Housing: House Do you presently have visiting nurse or other home services: No Alcohol intake: never Patient Tobacco Use Status: Never used Tobacco Smoked in Last 30 Days: No Use of substances other than those prescribed or required for medical reasons: No Currently Displaying Signs/Symptoms of Drug Intoxication Withdrawal: No Any prior treatment program specific to substance use: No Have you been hit, kicked, punched, or otherwise hurt by someone within the past year? If so, by whom?: No Do you feel safe in your current relationship?: No Is there a partner from a previous relationship who is making you feel unsafe now?: No Are you made to feel afraid or neglected: No Spiritual Healthcare Practices: none Yazidi Healthcare Practices: none Cultural Healthcare Practices: none Are you DNR?: No Advance Directives: Yes Advance Directives on File: Yes Advance Directives Date on File: 03/12/23 Healthcare Proxy: Yes ( and daughter are HCPs) Guardian: No Do you have thoughts of harming others: None Do you have a plan to hurt others: No Plan Recently lost weight without trying: Yes How much weight loss: 24-33 pounds Eating poorly because of decreased appetite: Yes Nutrition screen score: 6 Nutrition Risks: No Nutritional Risk Poor oral hygiene: No Sexual orientation: Straight/Heterosexual Meds Allergies Allergy/AdvReac Type Severity Reaction Status Date / Time No Known Allergies Allergy Verified 03/10/23 11:57 Active Medications: Current Medications Amlodipine Besylate (Amlodipine Besylate 5 Mg Tablet) 5 mg PO DAILY [facility]; Protocol Last Admin: 03/22/23 09:03 Dose: 5 mg Atorvastatin Calcium (Atorvastatin Calcium 10 Mg Tablet) 10 mg PO BEDTIME [facility] Last Admin: 03/21/23 20:20 Dose: 10 mg Escitalopram Oxalate (Escitalopram Oxalate 10 Mg Tablet) 10 mg PO DAILY [facility] Last Admin: 03/22/23 09:02 Dose: 10 mg Fluticasone Propionate (Fluticasone Propionate Nasal 16 Gm [place]) 1 spray NOSTRIL-B DAILY PRN PRN Reason: Allergy Symptoms Lorazepam (Lorazepam 0.5 Mg Tablet) 0.5 mg PO DAILY@0800,1300,1700 [facility] Last Admin: 03/22/23 12:18 Dose: 0.5 mg Lorazepam (Lorazepam 0.5 Mg Tablet) 0.5 mg PO BID PRN PRN Reason: Anxiety Last Admin: 03/22/23 06:08 Dose: 0.5 mg Melatonin (Melatonin 3 Mg Tablet) 6 mg PO BEDTIME [facility] Metoprolol Tartrate (Metoprolol Tartrate 25 Mg Tablet) 25 mg PO DAILY [facility]; Protocol Last Admin: 03/22/23 09:03 Dose: 25 mg Omeprazole (Omeprazole 20 Mg Capsule.Dr) 20 mg PO DAILY@0700 [facility] Last Admin: 03/22/23 06:07 Dose: 20 mg Ondansetron HCl (Ondansetron Odt 4 Mg Tab.Rapdis) 4 mg TRANSLINGU Q6H PRN PRN Reason: nausea/vomiting Last Admin: 03/22/23 12:22 Dose: 4 mg Senna/Docusate Sodium (Sennosides/Docusate Sodium Tablet) 2 tab PO BID [facility] Last Admin: 03/22/23 09:02 Dose: 2 tab Simethicone (Simethicone 80 Mg Tab.Chew) 80 mg PO TID [facility] Last Admin: 03/22/23 14:41 Dose: 80 mg Home Medications Medication Instructions Recorded Confirmed Last Taken Type citalopram 10 mg tablet 10 mg PO DAILY 03/11/23 03/11/23 Unknown History fluticasone propionate 50 1 spray intranasal DAILY PRN 03/11/23 03/11/23 Unknown History mcg/actuation nasal Allergy Symptoms spray,suspension lorazepam 1 mg tablet 1 mg PO TID PRN anxiety 03/11/23 03/11/23 Unknown History metoprolol tartrate 25 mg tablet 25 mg PO DAILY 03/11/23 03/11/23 Unknown History mirtazapine 15 mg tablet 15 mg PO BEDTIME 03/11/23 03/11/23 Unknown History montelukast 10 mg tablet 10 mg PO DAILY 03/11/23 03/11/23 Unknown History ondansetron 4 mg disintegrating 4 mg PO Q6-8H PRN nausea/vomiting 03/11/23 03/11/23 Unknown History tablet simvastatin 20 mg tablet 20 mg PO BEDTIME 03/11/23 03/11/23 Unknown History Physical Exam 2 Vital Signs: Vital Signs: Last Vital Signs Temp 97.4 F 03/22/23 07:55 Pulse 72 03/22/23 07:55 Resp 18 03/22/23 07:55 BP 154/83 H 03/22/23 07:55 Pulse Ox 98 03/22/23 07:55 O2 Del Method Room Air 03/22/23 07:55 BMI result Body Mass Index 19.3 Neuro: Other: He is alert and awake with normal spontaneity of speech fluency comprehension and somewhat flat affect. Facial expression blinking her diminished. Stare is slightly widened. Horizontal and vertical movements of eyes are slightly diminished. There is mild cogwheeling rigidity in both upper extremities specially upon reinforcement. Fine finger movements are okay. He is able to get up and walk around with reasonable movement of arms or arm swing. There is no significant far word or retropulsion. I did not notice any obvious tremor. Speech was normal. No nystagmus was noted. Deep tendon reflexes were trace to 1+ in upper extremities while 3 to 4+ in knees and ankles with equivocal plantars. Conrado signs were absent. Results Labs 03/10/23 13:52 03/10/23 13:52 Labs: His noncontrast head CT for his age group did not reveal any significant abnormality. In fact no abnormality was noted. Brain volume was intact with no sign of stroke. Assessment and Plan (1) Parkinsonism: Start date: 03/22/23 Qualifiers: Parkinsonism type: unspecified Qualified Code(s): G20.C - Parkinsonism, unspecified Status: Acute 72 years old man with mild generalize parkinsonism mostly manifesting as bradykinesia and rigidity. I did not notice any tremor. Elementary neurological examination also revealed significant hyper reflexia of knees and ankles suggestive of a pyramidal pathology or central pathology while his head CT did not reveal any significant abnormality. These to findings might be related to each other in which case and etiology such as atypical encephalitis is more likely, specially with the history that this was a subacute type of illness. If these 2 things were unrelated, then we might be dealing with a primary parkinsonian syndrome. Further workup would be needed for better differentiation. For now, I recommend MRI of cervical spine without contrast to see if we could find any etiology explaining paraparesis type of findings. I also recommend Lyme test and HIV test. We could try carbidopa levodopa 2501 at 07:00 and another at 11:00, about an hour before meals, to see if that would improve him physically. If initial tests would be negative, a lumbar puncture might be considered to analyze spinal fluid and to look at possibility of atypical infections worse is inflammation including autoimmune type of conditions. (2) Paraparesis: Status: Acute Procedures Date of Service Date of Service: 03/22/23
[2023-03-22 18:00] VITALS: BP 100/67; PULSE 77; RESP 17; TEMP 36.6; O2SAT 97
[2023-03-22] MEDS: gadobutroL 7.5 ML VIAL IVPUSH (21:32)
[2023-03-22] MEDS: Atorvastatin Calcium 10 MG TABLET PO (22:09)
[2023-03-23] MEDS: LORazepam 0.5 MG TABLET PO ×4 (06:19→20:48)
[2023-03-23 08:05] VITALS: BP 106/67; PULSE 86; RESP 18; TEMP 36.6; O2SAT 97
[2023-03-23 08:21] LABS: HIV AB/AG Nonreactive (Nonreactive); HIV Num 1 0.11 S/CO (0.00-0.99)
[2023-03-23] MEDS: Sennosides/Docusate Sodium TABLET 2 TAB PO ×2 (08:25→20:35)
[2023-03-23] MEDS: Omeprazole 20 MG CAPSULE.DR PO (08:25)
[2023-03-23] MEDS: Metoprolol Tartrate 25 MG TABLET PO (08:25)
[2023-03-23] MEDS: Escitalopram Oxalate 10 MG TABLET PO (08:25)
[2023-03-23] MEDS: amLODIPine Besylate 5 MG TABLET PO (08:25)
[2023-03-23] MEDS: Simethicone 80 MG TAB.CHEW PO ×2 (08:25→20:35)
--- NOTE | 2023-03-23 12:01 | MHC.CLN ---
F/U DIET=REGULAR. MAGIC CUP BID PROVIDES 580 KCALS, 18 G PROTEIN. ATE BITES FROM 1/2 OF SANDWICH AT [facility]CH TODAY. ALL OTHER TRAY ITEMS NOT TOUCHED. CONTINUE TO FOLLOW FOR INTAKE AND WEIGHT.
[2023-03-23] MEDS: Ondansetron ODT 4 MG TAB.RAPDIS TRANSLINGU (12:41)
[2023-03-23 18:00] VITALS: BP 121/68; PULSE 68; RESP 17; TEMP 36.4; O2SAT 97
--- NOTE | 2023-03-23 18:49 | HO.PSYCHPN ---
Subjective Subjective Date of Service: 03/23/23 Reason For Visit: failure to thrive Subjective Notes: Conditional Voluntary Interim History: Pt reports he slept through the night. He reports wanting to go home soon. He denies SI/HI. No VH/AH, no overt delusional content noted or reported. He also presents with some poverty of speech. conversations are very shallow. No behavioral concerns. Review of Systems Review of Systems No complain of any significant headache or neck pain. Yes all other systems are reviewed and are negative Constitutional: Reports as per HPI, Reports no additional constitutional complaints, Reports fatigue, Reports lethargy, Reports poor appetite, Reports weakness and Reports weight loss Eyes: Reports as per HPI and Denies no additional eye complaints Denies system reviewed and no additional complaints, except as documented and Reports as per HPI Cardiovascular: Reports as per HPI, Reports no additional cardiovascular complaints, Denies acrocyanosis, Denies cool extremities, Denies chest pain, Denies chest pain with activity, Reports epigastric discomfort, Denies leg edema, Denies lightheadedness, Denies palpitations, Denies dyspnea, Denies dyspnea on exertion and Denies paroxysmal nocturnal dyspnea Respiratory: Reports as per HPI, Denies no additional respiratory complaints, Denies dyspnea and Denies dyspnea on exertion Gastrointestinal: Reports as per HPI and Denies no additional gastrointestinal complaints Genitourinary: Reports no additional male genitourinary complaints and Reports as per HPI Musculoskeletal: Reports no additional musculoskeletal complaints and Reports as per HPI Skin/Breast: Reports system reviewed and no additional complaints, except as docu and Reports as per HPI Reports system reviewed and no additional complaints, except as documented, Reports as per HPI, Reports memory loss and Reports weakness Psychiatric: Reports no additional psychiatric complaints, Reports as per HPI, Reports anxiety, Reports change in appetite, Reports depression, Reports difficulty concentrating and Reports memory loss Endocrine: Reports no additional endocrine complaints, Reports as per HPI, Reports fatigue and Denies palpitations Hematologic/Lymphatic: Reports no additional hematologic/lymphatic complaints and Reports as per HPI Allergic/Immunologic: Reports no additional allergic/immunologic complaints and Reports as per HPI Mental Status Exam Mental Status Exam Narrative: Appearance: mask-like facial expression, wearing hospital gown, fair hygiene, in NAD Behavior:cooperative Psychomotor: no resting tremors, no agitation or retardation noted Speech: clear, some delayed in response, spontaneous TP: linear TC: feeling better Mood: today is a good day Affect: congruent, with somewhat of a mask-like expression SI: denies HI: denies VH/AH:none Delusions: none Insight/judgment: fair x 2 Memory/cog: alert, oriented x 3. MOCA --> most impairment on visuo spatial, executive function, recall. with intact orientation and language. Diagnostics Vital Signs (24Hr): Vital Signs - 24 hr 03/23/23 08:05 Temperature 97.8 F Pulse Rate 86 Respiratory Rate 18 Blood Pressure 106/67 Pulse Oximetry 97 Oxygen Delivery Method Room Air BMI result Body Mass Index 19.3 Labs 03/10/23 13:52 03/10/23 13:52 Labs: Laboratory Results - last 48 hr 03/23/23 06:57 HIV 1&2 Ab/P24 Ag 4thGn Nonreactive Imaging Radiology Impressions: ITS Impressions Head CT 03/10/23 13:17 Impression: Normal nonenhanced head CT Chest X-Ray 03/10/23 13:20 IMPRESSION: Unremarkable examination. Abdomen Ultrasound 03/10/23 13:45 IMPRESSION: * No acute sonographic abnormalities within the examined abdomen. * No evidence of cholelithiasis, cholecystitis or biliary tract obstruction. * Incidentally noted are a few benign hepatic cysts. Myocardial Perfusion Scan Nuc Med 03/20/23 10:15 Impression: 1. Likely normal myocardial perfusion 2. Gated LVEF is 51% 3. Transient ischemic dilatation not present Stress EKG is negative for ischemia Brain MRI 03/22/23 21:40 IMPRESSION: 1. No intracranial abnormality identified. No unexpected brain parenchymal volume loss. No abnormal enhancement. 2. Multilevel degenerative spondylotic changes resulting in varying degrees of spinal canal and neural foraminal stenosis. Spinal canal stenosis appears mild to moderate at C3-C4. Neural foraminal stenosis is severe bilaterally at C3-C4, severe on the left at C5-C6, and severe on the right at C6-C7. Cervical Spine MRI 03/22/23 21:54 IMPRESSION: 1. No intracranial abnormality identified. No unexpected brain parenchymal volume loss. No abnormal enhancement. 2. Multilevel degenerative spondylotic changes resulting in varying degrees of spinal canal and neural foraminal stenosis. Spinal canal stenosis appears mild to moderate at C3-C4. Neural foraminal stenosis is severe bilaterally at C3-C4, severe on the left at C5-C6, and severe on the right at C6-C7. Medications Medications Current Medications Amlodipine Besylate (Amlodipine Besylate 5 Mg Tablet) 5 mg PO DAILY [facility]; Protocol Last Admin: 03/23/23 08:25 Dose: 5 mg Atorvastatin Calcium (Atorvastatin Calcium 10 Mg Tablet) 10 mg PO BEDTIME [facility] Last Admin: 03/22/23 22:09 Dose: 10 mg Escitalopram Oxalate (Escitalopram Oxalate 10 Mg Tablet) 10 mg PO DAILY [facility] Last Admin: 03/23/23 08:25 Dose: 10 mg Fluticasone Propionate (Fluticasone Propionate Nasal 16 Gm [place]) 1 spray NOSTRIL-B DAILY PRN PRN Reason: Allergy Symptoms Lorazepam (Lorazepam 0.5 Mg Tablet) 0.5 mg PO DAILY@0800,1300,1700 [facility] Last Admin: 03/23/23 16:49 Dose: 0.5 mg Lorazepam (Lorazepam 0.5 Mg Tablet) 0.5 mg PO BID PRN PRN Reason: Anxiety Last Admin: 03/23/23 06:19 Dose: 0.5 mg Melatonin (Melatonin 3 Mg Tablet) 6 mg PO BEDTIME [facility] Last Admin: 03/22/23 22:10 Dose: Not Given Metoprolol Tartrate (Metoprolol Tartrate 25 Mg Tablet) 25 mg PO DAILY [facility]; Protocol Last Admin: 03/23/23 08:25 Dose: 25 mg Omeprazole (Omeprazole 20 Mg Capsule.Dr) 20 mg PO DAILY@0700 [facility] Last Admin: 03/23/23 08:25 Dose: 20 mg Ondansetron HCl (Ondansetron Odt 4 Mg Tab.Rapdis) 4 mg TRANSLINGU Q6H PRN PRN Reason: nausea/vomiting Last Admin: 03/23/23 12:41 Dose: 4 mg Senna/Docusate Sodium (Sennosides/Docusate Sodium Tablet) 2 tab PO BID [facility] Last Admin: 03/23/23 08:25 Dose: 2 tab Simethicone (Simethicone 80 Mg Tab.Chew) 80 mg PO TID [facility] Last Admin: 03/23/23 14:45 Dose: Not Given Allergies Allergies Allergy/AdvReac Type Severity Reaction Status Date / Time No Known Allergies Allergy Verified 03/10/23 11:57 Assessment & Plan Assessment & Plan (1) MDD (major depressive disorder), single episode with atypical features: Status: Acute Code(s): F32.9 - Major depressive disorder, single episode, unspecified (2) Abdominal pain, epigastric: Status: Inactive Code(s): R10.13 - Epigastric pain (3) MARTY (generalized anxiety disorder): Status: Acute Code(s): F41.1 - Generalized anxiety disorder (4) Mild cognitive disorder: Status: Acute Code(s): F09 - Unspecified mental disorder due to known physiological condition Plan Mr. Young is a 72 year-old male with cognitive decline, changes in behavior and ability to function. Mask-like facial expression, no tremor, atypical parkinsonism, in combination with cognitive decline. MOCA 19/30 not reflection actual decline in functioning as seen on ACL which he scored 3.4 showing much more severe functional impairment. PLAN 1. seen by neurology..awaiting further recommendation 2. continue current medications. Reason for continued inpatient stay Substantial Risk for: inability to function Time Spent With Patient Time: Total time managing care of this patient today ____ minutes.
[2023-03-23] MEDS: Atorvastatin Calcium 10 MG TABLET PO (20:35)
[2023-03-23] MEDS: Melatonin 3 MG TABLET 6 MG PO (20:35)
[2023-03-24] MEDS: Ondansetron ODT 4 MG TAB.RAPDIS TRANSLINGU (01:37)
[2023-03-24] MEDS: Omeprazole 20 MG CAPSULE.DR PO (06:10)
[2023-03-24] MEDS: LORazepam 0.5 MG TABLET PO ×5 (06:10→20:20)
[2023-03-24 08:15] VITALS: BP 134/82; PULSE 84; RESP 18; TEMP 36.2; O2SAT 98
[2023-03-24] MEDS: Escitalopram Oxalate 10 MG TABLET PO (08:36)
[2023-03-24] MEDS: Sennosides/Docusate Sodium TABLET 2 TAB PO ×2 (08:36→20:20)
[2023-03-24] MEDS: Simethicone 80 MG TAB.CHEW PO ×2 (08:36→20:20)
[2023-03-24] MEDS: Metoprolol Tartrate 25 MG TABLET PO (08:37)
[2023-03-24] MEDS: amLODIPine Besylate 5 MG TABLET PO (08:37)
--- NOTE | 2023-03-24 17:09 | P.PNPSI_ITS ---
Subjective Subjective Date of Service: 03/24/23 Reason For Visit: failure to thrive Interim History: Pt reports he didn't sleep well. He is having constipation. He was visiting with his . He appears anxious. He is fearful. He thinks there are people outside his room last night. Seen by neurology. Brain and cervical MRI's nonrevealing. Thoracic MRI recommended. Parkinson's is a differential diagnosis per neurology. Review of Systems Review of Systems No complain of any significant headache or neck pain. Yes all other systems are reviewed and are negative Constitutional: Reports as per HPI, Reports no additional constitutional complaints, Reports fatigue, Reports lethargy, Reports poor appetite, Reports weakness and Reports weight loss Eyes: Reports as per HPI and Denies no additional eye complaints Denies system reviewed and no additional complaints, except as documented and Reports as per HPI Cardiovascular: Reports as per HPI, Reports no additional cardiovascular complaints, Denies acrocyanosis, Denies cool extremities, Denies chest pain, Denies chest pain with activity, Reports epigastric discomfort, Denies leg edema, Denies lightheadedness, Denies palpitations, Denies dyspnea, Denies dyspnea on exertion and Denies paroxysmal nocturnal dyspnea Respiratory: Reports as per HPI, Denies no additional respiratory complaints, Denies dyspnea and Denies dyspnea on exertion Gastrointestinal: Reports as per HPI and Denies no additional gastrointestinal complaints Genitourinary: Reports no additional male genitourinary complaints and Reports as per HPI Musculoskeletal: Reports no additional musculoskeletal complaints and Reports as per HPI Skin/Breast: Reports system reviewed and no additional complaints, except as docu and Reports as per HPI Reports system reviewed and no additional complaints, except as documented, Reports as per HPI, Reports memory loss and Reports weakness Psychiatric: Reports no additional psychiatric complaints, Reports as per HPI, Reports anxiety, Reports change in appetite, Reports depression, Reports difficulty concentrating and Reports memory loss Endocrine: Reports no additional endocrine complaints, Reports as per HPI, Reports fatigue and Denies palpitations Hematologic/Lymphatic: Reports no additional hematologic/lymphatic complaints and Reports as per HPI Allergic/Immunologic: Reports no additional allergic/immunologic complaints and Reports as per HPI Mental Status Exam Mental Status Exam Narrative: Appearance: mask-like facial expression, wearing hospital gown, fair hygiene, in NAD Behavior:cooperative Psychomotor: no resting tremors, no agitation or retardation noted Speech: clear, some delayed in response, spontaneous TP: linear TC: feeling better Mood: today is a good day Affect: congruent, with somewhat of a mask-like expression SI: denies HI: denies VH/AH:none Delusions: none Insight/judgment: fair x 2 Memory/cog: alert, oriented x 3. MOCA --> most impairment on visuo spatial, executive function, recall. with intact orientation and language. Patient Appearance: Disheveled and Unkempt Patient Orientation: Person, Place and Situation Level of Consciousness: Awake Patient Behavior: Appropriate, Cooperative, Anxious and Fatigued Mood Description: Anxious and Sad Affect Description: Withdrawn and Anxious Patient Cognition Impaired: Yes Ability to Follow Directions: Good Speech Pattern: Whisper Memory Description: Remote Impaired, Immediate Impaired and Recent Impaired Diagnostics Vital Signs (24Hr): Vital Signs - 24 hr 03/23/23 18:00 03/24/23 08:15 Temperature 97.5 F 97.1 F Pulse Rate 68 84 Respiratory Rate 17 18 Blood Pressure 121/68 134/82 Pulse Oximetry 97 98 Oxygen Delivery Method Room Air Room Air BMI result Body Mass Index 19.3 Labs 03/10/23 13:52 03/10/23 13:52 Labs: Laboratory Results - last 48 hr 03/23/23 06:57 HIV 1&2 Ab/P24 Ag 4thGn Nonreactive Imaging Radiology Impressions: ITS Impressions Head CT 03/10/23 13:17 Impression: Normal nonenhanced head CT Chest X-Ray 03/10/23 13:20 IMPRESSION: Unremarkable examination. Abdomen Ultrasound 03/10/23 13:45 IMPRESSION: * No acute sonographic abnormalities within the examined abdomen. * No evidence of cholelithiasis, cholecystitis or biliary tract obstruction. * Incidentally noted are a few benign hepatic cysts. Myocardial Perfusion Scan Nuc Med 03/20/23 10:15 Impression: 1. Likely normal myocardial perfusion 2. Gated LVEF is 51% 3. Transient ischemic dilatation not present Stress EKG is negative for ischemia Brain MRI 03/22/23 21:40 IMPRESSION: 1. No intracranial abnormality identified. No unexpected brain parenchymal volume loss. No abnormal enhancement. 2. Multilevel degenerative spondylotic changes resulting in varying degrees of spinal canal and neural foraminal stenosis. Spinal canal stenosis appears mild to moderate at C3-C4. Neural foraminal stenosis is severe bilaterally at C3-C4, severe on the left at C5-C6, and severe on the right at C6-C7. Cervical Spine MRI 03/22/23 21:54 IMPRESSION: 1. No intracranial abnormality identified. No unexpected brain parenchymal volume loss. No abnormal enhancement. 2. Multilevel degenerative spondylotic changes resulting in varying degrees of spinal canal and neural foraminal stenosis. Spinal canal stenosis appears mild to moderate at C3-C4. Neural foraminal stenosis is severe bilaterally at C3-C4, severe on the left at C5-C6, and severe on the right at C6-C7. Medications Medications Current Medications Amlodipine Besylate (Amlodipine Besylate 5 Mg Tablet) 5 mg PO DAILY [facility]; Protocol Last Admin: 03/24/23 08:37 Dose: 5 mg Atorvastatin Calcium (Atorvastatin Calcium 10 Mg Tablet) 10 mg PO BEDTIME [facility] Last Admin: 03/23/23 20:35 Dose: 10 mg Escitalopram Oxalate (Escitalopram Oxalate 10 Mg Tablet) 10 mg PO DAILY [facility] Last Admin: 03/24/23 08:36 Dose: 10 mg Fluticasone Propionate (Fluticasone Propionate Nasal 16 Gm [place]) 1 spray NOSTRIL-B DAILY PRN PRN Reason: Allergy Symptoms Lorazepam (Lorazepam 0.5 Mg Tablet) 0.5 mg PO DAILY@0800,1300,1700 [facility] Last Admin: 03/24/23 12:03 Dose: 0.5 mg Lorazepam (Lorazepam 0.5 Mg Tablet) 0.5 mg PO BID PRN PRN Reason: Anxiety Last Admin: 03/24/23 08:37 Dose: 0.5 mg Magnesium Hydroxide (Milk Of Magnesia 30 Ml Oral.Susp) 15 ml PO DAILY PRN PRN Reason: Constipation Melatonin (Melatonin 3 Mg Tablet) 6 mg PO BEDTIME [facility] Last Admin: 03/23/23 20:35 Dose: 6 mg Metoprolol Tartrate (Metoprolol Tartrate 25 Mg Tablet) 25 mg PO DAILY [facility]; Protocol Last Admin: 03/24/23 08:37 Dose: 25 mg Omeprazole (Omeprazole 20 Mg Capsule.Dr) 20 mg PO DAILY@0700 [facility] Last Admin: 03/24/23 06:10 Dose: 20 mg Ondansetron HCl (Ondansetron Odt 4 Mg Tab.Rapdis) 4 mg TRANSLINGU Q6H PRN PRN Reason: nausea/vomiting Last Admin: 03/24/23 01:37 Dose: 4 mg Senna/Docusate Sodium (Sennosides/Docusate Sodium Tablet) 2 tab PO BID [facility] Last Admin: 03/24/23 08:36 Dose: 2 tab Simethicone (Simethicone 80 Mg Tab.Chew) 80 mg PO TID [facility] Last Admin: 03/24/23 15:29 Dose: Not Given Trazodone HCl (Trazodone Hcl 25 Mg Halftab) 25 mg PO BEDTIME [facility] Allergies Allergies Allergy/AdvReac Type Severity Reaction Status Date / Time No Known Allergies Allergy Verified 03/10/23 11:57 Assessment & Plan Assessment & Plan (1) MDD (major depressive disorder), single episode with atypical features: Status: Acute Code(s): F32.9 - Major depressive disorder, single episode, unspecified (2) Abdominal pain, epigastric: Status: Inactive Code(s): R10.13 - Epigastric pain (3) MARTY (generalized anxiety disorder): Status: Acute Code(s): F41.1 - Generalized anxiety disorder (4) Mild cognitive disorder: Status: Acute Code(s): F09 - Unspecified mental disorder due to known physiological condition Plan Mr. Young is a 72 year-old male with cognitive decline, changes in behavior and ability to function. Mask-like facial expression, no tremor, atypical parkinsonism, in combination with cognitive decline. MOCA 19/30 not reflection actual decline in functioning as seen on ACL which he scored 3.4 showing much more severe functional impairment. PLAN 1. seen by neurology..awaiting further recommendation 2. continue current medications. 03/24: Trial Trazodone 25 mg HS if ineffective consider Seroquel. Reason for continued inpatient stay Substantial Risk for: inability to function and rapid decompensation Time Spent With Patient Time: Total time managing care of this patient today ____ minutes.
[2023-03-24] MEDS: Milk of Magnesia 30 ML ORAL.SUSP 15 ML PO (17:16)
[2023-03-24 19:35] VITALS: BP 114/55; PULSE 78; RESP 18; TEMP 36.3; O2SAT 98
[2023-03-24] MEDS: Atorvastatin Calcium 10 MG TABLET PO (20:20)
[2023-03-24] MEDS: traZODone HCL 25 MG HALFTAB PO (20:20)
[2023-03-24] MEDS: Melatonin 3 MG TABLET 6 MG PO (20:20)
[2023-03-25] MEDS: Omeprazole 20 MG CAPSULE.DR PO (06:33)
[2023-03-25] MEDS: LORazepam 0.5 MG TABLET PO ×4 (06:33→17:03)
[2023-03-25 07:47] VITALS: BP 98/64; PULSE 80; RESP 16; TEMP 36.2; O2SAT 99
[2023-03-25] MEDS: Simethicone 80 MG TAB.CHEW PO ×3 (07:53→20:30)
[2023-03-25] MEDS: Escitalopram Oxalate 10 MG TABLET PO (07:53)
[2023-03-25] MEDS: Sennosides/Docusate Sodium TABLET 2 TAB PO ×2 (07:53→20:30)
--- NOTE | 2023-03-25 08:08 | P.CNNE_ITS ---
History of Present Illness Data of Consult Service Date: 03/25/23 Primary Care Provider: Daniel Arguello MD [facility] Reason for consult: Parkinsonism 72 years old man with mild parkinsonism mostly rigidity in bradykinesia. His also reported that sometime she had seen I hand tremor. I talked to his today to obtain background information. Apparently he has been without any significant problem until about a year ago. During last few months at least, he has become increasingly anxious and nervous and somewhat fearful. He would follow his everywhere. He also reported being depressed. Previously he was not known to have any significant anxiety or depression or psychiatric condition. 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 There was sleeping in separate bedrooms but he was having vivid dreams or kicking and shouting during sleep. This has been a chronic issue with him. There was no history of drug abuse. His said that he was overusing laxative during last few months which resulted in some problem in his abdomen and that might have been the cause of pain. Review of Systems 2 Review of Systems: Kicking and shouting during sleep. [facility] Past Medical History Medical History (Updated 03/22/23 @ 15:56 by Jose E Hampton MD) Abdominal pain, epigastric Surgical History Surgical History Hx of colonoscopy Hx of tonsillectomy Social History Social History Household Members: Family Housing: House Do you presently have visiting nurse or other home services: No Alcohol intake: never Patient Tobacco Use Status: Never used Tobacco Smoked in Last 30 Days: No Use of substances other than those prescribed or required for medical reasons: No Currently Displaying Signs/Symptoms of Drug Intoxication Withdrawal: No Any prior treatment program specific to substance use: No Have you been hit, kicked, punched, or otherwise hurt by someone within the past year? If so, by whom?: No Do you feel safe in your current relationship?: No Is there a partner from a previous relationship who is making you feel unsafe now?: No Are you made to feel afraid or neglected: No Spiritual Healthcare Practices: none [facility] Healthcare Practices: none Cultural Healthcare Practices: none Are you DNR?: No Advance Directives: Yes Advance Directives on File: Yes Advance Directives Date on File: 03/12/23 Healthcare Proxy: Yes ( and daughter are HCPs) Guardian: No Do you have thoughts of harming others: None Do you have a plan to hurt others: No Plan Recently lost weight without trying: Yes How much weight loss: 24-33 pounds Eating poorly because of decreased appetite: Yes Nutrition screen score: 6 Nutrition Risks: No Nutritional Risk Poor oral hygiene: No Sexual orientation: Straight/Heterosexual Meds Allergies Allergy/AdvReac Type Severity Reaction Status Date / Time No Known Allergies Allergy Verified 03/10/23 11:57 Active Medications: Current Medications Amlodipine Besylate (Amlodipine Besylate 5 Mg Tablet) 5 mg PO DAILY [facility]; Protocol Last Admin: 03/24/23 08:37 Dose: 5 mg Atorvastatin Calcium (Atorvastatin Calcium 10 Mg Tablet) 10 mg PO BEDTIME [facility] Last Admin: 03/24/23 20:20 Dose: 10 mg Escitalopram Oxalate (Escitalopram Oxalate 10 Mg Tablet) 10 mg PO DAILY [facility] Last Admin: 03/25/23 07:53 Dose: 10 mg Fluticasone Propionate (Fluticasone Propionate Nasal 16 Gm [place]) 1 spray NOSTRIL-B DAILY PRN PRN Reason: Allergy Symptoms Lorazepam (Lorazepam 0.5 Mg Tablet) 0.5 mg PO DAILY@0800,1300,1700 [facility] Last Admin: 03/25/23 07:53 Dose: 0.5 mg Lorazepam (Lorazepam 0.5 Mg Tablet) 0.5 mg PO BID PRN PRN Reason: Anxiety Last Admin: 03/25/23 06:33 Dose: 0.5 mg Magnesium Hydroxide (Milk Of Magnesia 30 Ml Oral.Susp) 15 ml PO DAILY PRN PRN Reason: Constipation Last Admin: 03/24/23 17:16 Dose: 15 ml Melatonin (Melatonin 3 Mg Tablet) 6 mg PO BEDTIME [facility] Last Admin: 03/24/23 20:20 Dose: 6 mg Metoprolol Tartrate (Metoprolol Tartrate 25 Mg Tablet) 25 mg PO DAILY [facility]; Protocol Last Admin: 03/24/23 08:37 Dose: 25 mg Omeprazole (Omeprazole 20 Mg Capsule.Dr) 20 mg PO DAILY@0700 [facility] Last Admin: 03/25/23 06:33 Dose: 20 mg Ondansetron HCl (Ondansetron Odt 4 Mg Tab.Rapdis) 4 mg TRANSLINGU Q6H PRN PRN Reason: nausea/vomiting Last Admin: 03/24/23 01:37 Dose: 4 mg Senna/Docusate Sodium (Sennosides/Docusate Sodium Tablet) 2 tab PO BID [facility] Last Admin: 03/25/23 07:53 Dose: 2 tab Simethicone (Simethicone 80 Mg Tab.Chew) 80 mg PO TID [facility] Last Admin: 03/25/23 07:53 Dose: 80 mg Trazodone HCl (Trazodone Hcl 25 Mg Halftab) 25 mg PO BEDTIME [facility] Last Admin: 03/24/23 20:20 Dose: 25 mg Home Medications Medication Instructions Recorded Confirmed Last Taken Type citalopram 10 mg tablet 10 mg PO DAILY 03/11/23 03/11/23 Unknown History fluticasone propionate 50 1 spray intranasal DAILY PRN 03/11/23 03/11/23 Unknown History mcg/actuation nasal Allergy Symptoms spray,suspension lorazepam 1 mg tablet 1 mg PO TID PRN anxiety 03/11/23 03/11/23 Unknown History metoprolol tartrate 25 mg tablet 25 mg PO DAILY 03/11/23 03/11/23 Unknown History mirtazapine 15 mg tablet 15 mg PO BEDTIME 03/11/23 03/11/23 Unknown History montelukast 10 mg tablet 10 mg PO DAILY 03/11/23 03/11/23 Unknown History ondansetron 4 mg disintegrating 4 mg PO Q6-8H PRN nausea/vomiting 03/11/23 03/11/23 Unknown History tablet simvastatin 20 mg tablet 20 mg PO BEDTIME 03/11/23 03/11/23 Unknown History Physical Exam 2 Vital Signs: Vital Signs: Last Vital Signs Temp 97.2 F 03/25/23 07:47 Pulse 80 03/25/23 07:47 Resp 16 03/25/23 07:47 BP 98/64 03/25/23 07:47 Pulse Ox 99 03/25/23 07:47 O2 Del Method Room Air 03/25/23 07:47 BMI result Body Mass Index 19.3 Neuro: Other: Mild parkinsonism is still noted. He was alert and awake with normal spontaneity of speech fluency comprehension and somewhat flat affect. We talked frankly about his condition and he said that he was here because of chest pain and anxiety and depression. Otherwise examination has not changed. Leg hyper reflexia was still noted. Results Labs 03/10/23 13:52 03/10/23 13:52 Labs: His MRI of brain was reviewed. No significant pathology was noted other than mild hippocampal atrophy. Minimal microvascular ischemic changes were noted. Cervical spine MRI revealed moderate spinal stenosis but no cord signal abnormality. Assessment and Plan (1) Parkinsonism: Qualifiers: Parkinsonism type: unspecified Qualified Code(s): G20.C - Parkinsonism, unspecified Status: Acute 72 years old man with subacute onset of a behavioral syndrome resulting in anxiety and depression with mild cognitive difficulties, mild parkinsonism noted on physical examination, bilateral leg hyper reflexia that might be due to cervical spinal stenosis but no obvious cord signal abnormality was noted and thoracic spine MRI was pending. As I stated before, leg hyper reflexia may or may not be related to the parkinsonian syndrome we were dealing with. If there to gather, a more generalize encephalopathic process is a consideration. It is important to rule out mechanical reasons in for that reason MRI of thoracic spine is needed. Lyme serology still pending. If thoracic spine MRI does not reveal any significant abnormality, a lumbar puncture should also be perform to rule out any sign suggestive of inflammation to rule out autoimmune or vasculitic type of pathologies. Dementia with Lewy body disease can also present in this manner but there some atypical features. For example his brain imaging does not reveal significant degeneration, which usually is seen with dementia with Lewy body disease. Secondly, this is a relatively brief duration of overall illness for a degenerative disease. Despite that, that is a possibility. Treatment so far as symptomatic until more specific or an alternate diagnosis was made. Procedures Date of Service Date of Service: 03/25/23
[2023-03-25 09:02] VITALS: BP 102/58; PULSE 76
[2023-03-25] MEDS: Milk of Magnesia 30 ML ORAL.SUSP 15 ML PO (10:22)
--- NOTE | 2023-03-25 14:08 | PC.NURSE ---
Morning bp 98/64, Clinton endorsed slight dizziness and fluids encouraged and provided. Recheck bp approximately 90 minutes later and 102/58 however Clinton reported dizziness had resolved. Held morning Taylor and Ji and Dr. Pizarro notified.
--- NOTE | 2023-03-25 15:59 | HO.PSYCHPN ---
Subjective Subjective Date of Service: 03/25/23 Reason For Visit: failure to thrive Interim History: Pt reports he slept better last night and is thankful. He found the Trazodone helpful. He denies side effects. He was seen by neurology. 72 years old man with subacute onset of a behavioral syndrome resulting in anxiety and depression with mild cognitive difficulties, mild parkinsonism noted on physical examination, bilateral leg hyper reflexia that might be due to cervical spinal stenosis but no obvious cord signal abnormality was noted and thoracic spine MRI was pending. As I stated before, leg hyper reflexia may or may not be related to the parkinsonian syndrome we were dealing with. If there to gather, a more generalize encephalopathic process is a consideration. It is important to rule out mechanical reasons in for that reason MRI of thoracic spine is needed. Lyme serology still pending. If thoracic spine MRI does not reveal any significant abnormality, a lumbar puncture should also be perform to rule out any sign suggestive of inflammation to rule out autoimmune or vasculitic type of pathologies. Dementia with Lewy body disease can also present in this manner but there some atypical features. For example his brain imaging does not reveal significant degeneration, which usually is seen with dementia with Lewy body disease. Secondly, this is a relatively brief duration of overall illness for a degenerative disease. Despite that, that is a possibility. Treatment so far as symptomatic until more specific or an alternate diagnosis was made. Brain and cervical MRI's nonrevealing. Thoracic MRI recommended and pending. Parkinson's is a differential diagnosis per neurology. Consider sinemet. Review of Systems Review of Systems Kicking and shouting during sleep. Yes all other systems are reviewed and are negative Constitutional: Reports as per HPI, Reports no additional constitutional complaints, Reports fatigue, Reports lethargy, Reports poor appetite, Reports weakness and Reports weight loss Eyes: Reports as per HPI and Denies no additional eye complaints Denies system reviewed and no additional complaints, except as documented and Reports as per HPI Cardiovascular: Reports as per HPI, Reports no additional cardiovascular complaints, Denies acrocyanosis, Denies cool extremities, Denies chest pain, Denies chest pain with activity, Reports epigastric discomfort, Denies leg edema, Denies lightheadedness, Denies palpitations, Denies dyspnea, Denies dyspnea on exertion and Denies paroxysmal nocturnal dyspnea Respiratory: Reports as per HPI, Denies no additional respiratory complaints, Denies dyspnea and Denies dyspnea on exertion Gastrointestinal: Reports as per HPI and Denies no additional gastrointestinal complaints Genitourinary: Reports no additional male genitourinary complaints and Reports as per HPI Musculoskeletal: Reports no additional musculoskeletal complaints and Reports as per HPI Skin/Breast: Reports system reviewed and no additional complaints, except as docu and Reports as per HPI Reports system reviewed and no additional complaints, except as documented, Reports as per HPI, Reports memory loss and Reports weakness Psychiatric: Reports no additional psychiatric complaints, Reports as per HPI, Reports anxiety, Reports change in appetite, Reports depression, Reports difficulty concentrating and Reports memory loss Endocrine: Reports no additional endocrine complaints, Reports as per HPI, Reports fatigue and Denies palpitations Hematologic/Lymphatic: Reports no additional hematologic/lymphatic complaints and Reports as per HPI Allergic/Immunologic: Reports no additional allergic/immunologic complaints and Reports as per HPI Mental Status Exam Mental Status Exam Narrative: Appearance: mask-like facial expression, wearing hospital gown, fair hygiene, in NAD Behavior:cooperative Psychomotor: no resting tremors, no agitation or retardation noted Speech: clear, some delayed in response, spontaneous TP: linear TC: feeling better Mood: today is a good day Affect: congruent, with somewhat of a mask-like expression SI: denies HI: denies VH/AH:none Delusions: none Insight/judgment: fair x 2 Memory/cog: alert, oriented x 3. MOCA 18--> most impairment on visuo spatial, executive function, recall. with intact orientation and language. Patient Appearance: Disheveled and Unkempt Patient Orientation: Person, Place and Situation Level of Consciousness: Awake Patient Behavior: Appropriate, Cooperative, Anxious and Fatigued Mood Description: Anxious and Sad Affect Description: Withdrawn and Anxious Patient Cognition Impaired: Yes Ability to Follow Directions: Good Speech Pattern: Whisper Memory Description: Remote Impaired, Immediate Impaired and Recent Impaired Diagnostics Vital Signs (24Hr): Vital Signs - 24 hr 03/24/23 19:35 03/25/23 07:47 03/25/23 09:02 Temperature 97.3 F 97.2 F Pulse Rate 78 80 76 Respiratory Rate 18 16 Blood Pressure 114/55 L 98/64 102/58 L Pulse Oximetry 98 99 Oxygen Delivery Method Room Air Room Air BMI result Body Mass Index 19.3 Labs 03/10/23 13:52 03/10/23 13:52 Imaging Radiology Impressions: ITS Impressions Head CT 03/10/23 13:17 Impression: Normal nonenhanced head CT Chest X-Ray 03/10/23 13:20 IMPRESSION: Unremarkable examination. Abdomen Ultrasound 03/10/23 13:45 IMPRESSION: * No acute sonographic abnormalities within the examined abdomen. * No evidence of cholelithiasis, cholecystitis or biliary tract obstruction. * Incidentally noted are a few benign hepatic cysts. Myocardial Perfusion Scan Nuc Med 03/20/23 10:15 Impression: 1. Likely normal myocardial perfusion 2. Gated LVEF is 51% 3. Transient ischemic dilatation not present Stress EKG is negative for ischemia Brain MRI 03/22/23 21:40 IMPRESSION: 1. No intracranial abnormality identified. No unexpected brain parenchymal volume loss. No abnormal enhancement. 2. Multilevel degenerative spondylotic changes resulting in varying degrees of spinal canal and neural foraminal stenosis. Spinal canal stenosis appears mild to moderate at C3-C4. Neural foraminal stenosis is severe bilaterally at C3-C4, severe on the left at C5-C6, and severe on the right at C6-C7. Cervical Spine MRI 03/22/23 21:54 IMPRESSION: 1. No intracranial abnormality identified. No unexpected brain parenchymal volume loss. No abnormal enhancement. 2. Multilevel degenerative spondylotic changes resulting in varying degrees of spinal canal and neural foraminal stenosis. Spinal canal stenosis appears mild to moderate at C3-C4. Neural foraminal stenosis is severe bilaterally at C3-C4, severe on the left at C5-C6, and severe on the right at C6-C7. Medications Medications Current Medications Amlodipine Besylate (Amlodipine Besylate 5 Mg Tablet) 5 mg PO DAILY [facility]; Protocol Last Admin: 03/25/23 09:06 Dose: Not Given Atorvastatin Calcium (Atorvastatin Calcium 10 Mg Tablet) 10 mg PO BEDTIME JAY Last Admin: 03/24/23 20:20 Dose: 10 mg Escitalopram Oxalate (Escitalopram Oxalate 10 Mg Tablet) 10 mg PO DAILY [facility] Last Admin: 03/25/23 07:53 Dose: 10 mg Fluticasone Propionate (Fluticasone Propionate Nasal 16 Gm [place]) 1 spray NOSTRIL-B DAILY PRN PRN Reason: Allergy Symptoms Lorazepam (Lorazepam 0.5 Mg Tablet) 0.5 mg PO BID PRN PRN Reason: Anxiety Last Admin: 03/25/23 06:33 Dose: 0.5 mg Lorazepam (Lorazepam 0.5 Mg Tablet) 0.5 mg PO 0800,1300,1700 [facility] Last Admin: 03/25/23 12:24 Dose: 0.5 mg Magnesium Hydroxide (Milk Of Magnesia 30 Ml Oral.Susp) 15 ml PO DAILY PRN PRN Reason: Constipation Last Admin: 03/25/23 10:22 Dose: 15 ml Melatonin (Melatonin 3 Mg Tablet) 6 mg PO BEDTIME [facility] Last Admin: 03/24/23 20:20 Dose: 6 mg Metoprolol Tartrate (Metoprolol Tartrate 25 Mg Tablet) 25 mg PO DAILY [facility]; Protocol Last Admin: 03/25/23 09:06 Dose: Not Given Omeprazole (Omeprazole 20 Mg Capsule.Dr) 20 mg PO DAILY@0700 [facility] Last Admin: 03/25/23 06:33 Dose: 20 mg Ondansetron HCl (Ondansetron Odt 4 Mg Tab.Rapdis) 4 mg TRANSLINGU Q6H PRN PRN Reason: nausea/vomiting Last Admin: 03/24/23 01:37 Dose: 4 mg Senna/Docusate Sodium (Sennosides/Docusate Sodium Tablet) 2 tab PO BID [facility] Last Admin: 03/25/23 07:53 Dose: 2 tab Simethicone (Simethicone 80 Mg Tab.Chew) 80 mg PO TID [facility] Last Admin: 03/25/23 07:53 Dose: 80 mg Trazodone HCl (Trazodone Hcl 25 Mg Halftab) 25 mg PO BEDTIME [facility] Last Admin: 03/24/23 20:20 Dose: 25 mg Allergies Allergies Allergy/AdvReac Type Severity Reaction Status Date / Time No Known Allergies Allergy Verified 03/10/23 11:57 Assessment & Plan Assessment & Plan (1) Parkinsonism: Qualifiers: Parkinsonism type: unspecified Qualified Code(s): G20.C - Parkinsonism, unspecified Status: Acute Code(s): G20.C - Parkinsonism, unspecified Assessment and Plan: 72 years old man with subacute onset of a behavioral syndrome resulting in anxiety and depression with mild cognitive difficulties, mild parkinsonism noted on physical examination, bilateral leg hyper reflexia that might be due to cervical spinal stenosis but no obvious cord signal abnormality was noted and thoracic spine MRI was pending. As I stated before, leg hyper reflexia may or may not be related to the parkinsonian syndrome we were dealing with. If there to gather, a more generalize encephalopathic process is a consideration. It is important to rule out mechanical reasons in for that reason MRI of thoracic spine is needed. Lyme serology still pending. If thoracic spine MRI does not reveal any significant abnormality, a lumbar puncture should also be perform to rule out any sign suggestive of inflammation to rule out autoimmune or vasculitic type of pathologies. Dementia with Lewy body disease can also present in this manner but there some atypical features. For example his brain imaging does not reveal significant degeneration, which usually is seen with dementia with Lewy body disease. Secondly, this is a relatively brief duration of overall illness for a degenerative disease. Despite that, that is a possibility. Treatment so far as symptomatic until more specific or an alternate diagnosis was made. (2) MDD (major depressive disorder), single episode with atypical features: Status: Acute Code(s): F32.9 - Major depressive disorder, single episode, unspecified (3) MARTY (generalized anxiety disorder): Status: Acute Code(s): F41.1 - Generalized anxiety disorder (4) Mild cognitive disorder: Status: Acute Code(s): F09 - Unspecified mental disorder due to known physiological condition Plan Mr. Young is a 72 year-old male with cognitive decline, changes in behavior and ability to function. Mask-like facial expression, no tremor, atypical parkinsonism, in combination with cognitive decline. MOCA not reflection actual decline in functioning as seen on ACL which he scored 3.4 showing much more severe functional impairment. PLAN 1. seen by neurology..awaiting further recommendation 2. continue current medications. 03/24: Trial Trazodone 25 mg HS if ineffective consider Seroquel or Remeron 03/25: Continue current management and treatment plan. consider Seroquel or Remeron. FU neuro recommendations. Reason for continued inpatient stay Substantial Risk for: inability to function and med/psych decompensation Time Spent With Patient Time: Total time managing care of this patient today ____ minutes.
[2023-03-25 18:00] VITALS: BP 107/66; PULSE 81; RESP 18; TEMP 36.6; O2SAT 97
[2023-03-25] MEDS: Melatonin 3 MG TABLET 6 MG PO (20:30)
[2023-03-25] MEDS: Atorvastatin Calcium 10 MG TABLET PO (20:30)
[2023-03-25] MEDS: traZODone HCL 25 MG HALFTAB PO (20:30)
[2023-03-26 06:00] VITALS: BP 105/63; PULSE 93; RESP 18; TEMP 36.3; O2SAT 98
[2023-03-26] MEDS: Omeprazole 20 MG CAPSULE.DR PO (06:12)
[2023-03-26] MEDS: Metoprolol Tartrate 25 MG TABLET PO (08:31)
[2023-03-26] MEDS: LORazepam 0.5 MG TABLET PO ×3 (08:31→17:02)
[2023-03-26] MEDS: Escitalopram Oxalate 10 MG TABLET PO (08:31)
[2023-03-26] MEDS: amLODIPine Besylate 5 MG TABLET PO (08:31)
[2023-03-26] MEDS: Simethicone 80 MG TAB.CHEW PO ×3 (08:31→20:24)
[2023-03-26] MEDS: Sennosides/Docusate Sodium TABLET 2 TAB PO ×2 (08:31→20:24)
--- NOTE | 2023-03-26 09:07 | HO.PSYCHPN ---
Subjective Subjective Date of Service: 03/26/23 Reason For Visit: failure to thrive Subjective Notes: Conditional Voluntary Healthcare Proxy: Yes Interim History: Pt reports he had good weekend. He wants to go back home soon. He denies SI/HI. he reports less anxious mood. No overt depression. No behavioral concerns. Had Lumbar MRI this morning. Review of Systems Review of Systems Kicking and shouting during sleep. Yes all other systems are reviewed and are negative Constitutional: Reports as per HPI, Reports no additional constitutional complaints, Reports fatigue, Reports lethargy, Reports poor appetite, Reports weakness and Reports weight loss Eyes: Reports as per HPI and Denies no additional eye complaints Denies system reviewed and no additional complaints, except as documented and Reports as per HPI Cardiovascular: Reports as per HPI, Reports no additional cardiovascular complaints, Denies acrocyanosis, Denies cool extremities, Denies chest pain, Denies chest pain with activity, Reports epigastric discomfort, Denies leg edema, Denies lightheadedness, Denies palpitations, Denies dyspnea, Denies dyspnea on exertion and Denies paroxysmal nocturnal dyspnea Respiratory: Reports as per HPI, Denies no additional respiratory complaints, Denies dyspnea and Denies dyspnea on exertion Gastrointestinal: Reports as per HPI and Denies no additional gastrointestinal complaints Genitourinary: Reports no additional male genitourinary complaints and Reports as per HPI Musculoskeletal: Reports no additional musculoskeletal complaints and Reports as per HPI Skin/Breast: Reports system reviewed and no additional complaints, except as docu and Reports as per HPI Reports system reviewed and no additional complaints, except as documented, Reports as per HPI, Reports memory loss and Reports weakness Psychiatric: Reports no additional psychiatric complaints, Reports as per HPI, Reports anxiety, Reports change in appetite, Reports depression, Reports difficulty concentrating and Reports memory loss Endocrine: Reports no additional endocrine complaints, Reports as per HPI, Reports fatigue and Denies palpitations Hematologic/Lymphatic: Reports no additional hematologic/lymphatic complaints and Reports as per HPI Allergic/Immunologic: Reports no additional allergic/immunologic complaints and Reports as per HPI Mental Status Exam Mental Status Exam Narrative: Appearance: mask-like facial expression, wearing hospital gown, fair hygiene, in NAD Behavior:cooperative Psychomotor: no resting tremors, no agitation or retardation noted Speech: clear, some delayed in response, spontaneous TP: linear TC: feeling better Mood: good Affect: congruent, with somewhat of a mask-like expression SI: denies HI: denies VH/AH:none Delusions: none Insight/judgment: fair x 2 Memory/cog: alert, oriented x 3. MOCA --> most impairment on visuo spatial, executive function, recall. with intact orientation and language. ACL shows greater level of impairment in terms of functional cognition 3.4 Diagnostics Vital Signs (24Hr): Vital Signs - 24 hr 03/25/23 18:00 03/26/23 06:00 Temperature 97.9 F 97.3 F Pulse Rate 81 93 Respiratory Rate 18 18 Blood Pressure 107/66 105/63 Pulse Oximetry 97 98 Oxygen Delivery Method Room Air Room Air BMI result Body Mass Index 19.3 Labs 03/10/23 13:52 03/10/23 13:52 Imaging Radiology Impressions: ITS Impressions Head CT 03/10/23 13:17 Impression: Normal nonenhanced head CT Chest X-Ray 03/10/23 13:20 IMPRESSION: Unremarkable examination. Abdomen Ultrasound 03/10/23 13:45 IMPRESSION: * No acute sonographic abnormalities within the examined abdomen. * No evidence of cholelithiasis, cholecystitis or biliary tract obstruction. * Incidentally noted are a few benign hepatic cysts. Myocardial Perfusion Scan Nuc Med 03/20/23 10:15 Impression: 1. Likely normal myocardial perfusion 2. Gated LVEF is 51% 3. Transient ischemic dilatation not present Stress EKG is negative for ischemia Brain MRI 03/22/23 21:40 IMPRESSION: 1. No intracranial abnormality identified. No unexpected brain parenchymal volume loss. No abnormal enhancement. 2. Multilevel degenerative spondylotic changes resulting in varying degrees of spinal canal and neural foraminal stenosis. Spinal canal stenosis appears mild to moderate at C3-C4. Neural foraminal stenosis is severe bilaterally at C3-C4, severe on the left at C5-C6, and severe on the right at C6-C7. Cervical Spine MRI 03/22/23 21:54 IMPRESSION: 1. No intracranial abnormality identified. No unexpected brain parenchymal volume loss. No abnormal enhancement. 2. Multilevel degenerative spondylotic changes resulting in varying degrees of spinal canal and neural foraminal stenosis. Spinal canal stenosis appears mild to moderate at C3-C4. Neural foraminal stenosis is severe bilaterally at C3-C4, severe on the left at C5-C6, and severe on the right at C6-C7. Medications Medications Current Medications Amlodipine Besylate (Amlodipine Besylate 5 Mg Tablet) 5 mg PO DAILY [facility]; Protocol Last Admin: 03/26/23 08:31 Dose: 5 mg Atorvastatin Calcium (Atorvastatin Calcium 10 Mg Tablet) 10 mg PO BEDTIME [facility] Last Admin: 03/25/23 20:30 Dose: 10 mg Escitalopram Oxalate (Escitalopram Oxalate 10 Mg Tablet) 10 mg PO DAILY [facility] Last Admin: 03/26/23 08:31 Dose: 10 mg Fluticasone Propionate (Fluticasone Propionate Nasal 16 Gm [place]) 1 spray NOSTRIL-B DAILY PRN PRN Reason: Allergy Symptoms Lorazepam (Lorazepam 0.5 Mg Tablet) 0.5 mg PO BID PRN PRN Reason: Anxiety Last Admin: 03/25/23 06:33 Dose: 0.5 mg Lorazepam (Lorazepam 0.5 Mg Tablet) 0.5 mg PO 0800,1300,1700 [facility] Last Admin: 03/26/23 08:31 Dose: 0.5 mg Magnesium Hydroxide (Milk Of Magnesia 30 Ml Oral.Susp) 15 ml PO DAILY PRN PRN Reason: Constipation Last Admin: 03/25/23 10:22 Dose: 15 ml Melatonin (Melatonin 3 Mg Tablet) 6 mg PO BEDTIME [facility] Last Admin: 03/25/23 20:30 Dose: 6 mg Metoprolol Tartrate (Metoprolol Tartrate 25 Mg Tablet) 25 mg PO DAILY [facility]; Protocol Last Admin: 03/26/23 08:31 Dose: 25 mg Omeprazole (Omeprazole 20 Mg Capsule.Dr) 20 mg PO DAILY@0700 [facility] Last Admin: 03/26/23 06:12 Dose: 20 mg Ondansetron HCl (Ondansetron Odt 4 Mg Tab.Rapdis) 4 mg TRANSLINGU Q6H PRN PRN Reason: nausea/vomiting Last Admin: 03/24/23 01:37 Dose: 4 mg Senna/Docusate Sodium (Sennosides/Docusate Sodium Tablet) 2 tab PO BID [facility] Last Admin: 03/26/23 08:31 Dose: 2 tab Simethicone (Simethicone 80 Mg Tab.Chew) 80 mg PO TID [facility] Last Admin: 03/26/23 08:31 Dose: 80 mg Trazodone HCl (Trazodone Hcl 25 Mg Halftab) 25 mg PO BEDTIME [facility] Last Admin: 03/25/23 20:30 Dose: 25 mg Allergies Allergies Allergy/AdvReac Type Severity Reaction Status Date / Time No Known Allergies Allergy Verified 03/10/23 11:57 Assessment & Plan Assessment & Plan (1) Parkinsonism: Qualifiers: Parkinsonism type: unspecified Qualified Code(s): G20.C - Parkinsonism, unspecified Status: Acute Code(s): G20.C - Parkinsonism, unspecified Assessment and Plan: 72 years old man with subacute onset of a behavioral syndrome resulting in anxiety and depression with mild cognitive difficulties, mild parkinsonism noted on physical examination, bilateral leg hyper reflexia that might be due to cervical spinal stenosis but no obvious cord signal abnormality was noted and thoracic spine MRI was pending. As I stated before, leg hyper reflexia may or may not be related to the parkinsonian syndrome we were dealing with. If there to gather, a more generalize encephalopathic process is a consideration. It is important to rule out mechanical reasons in for that reason MRI of thoracic spine is needed. Lyme serology still pending. If thoracic spine MRI does not reveal any significant abnormality, a lumbar puncture should also be perform to rule out any sign suggestive of inflammation to rule out autoimmune or vasculitic type of pathologies. Dementia with Lewy body disease can also present in this manner but there some atypical features. For example his brain imaging does not reveal significant degeneration, which usually is seen with dementia with Lewy body disease. Secondly, this is a relatively brief duration of overall illness for a degenerative disease. Despite that, that is a possibility. Treatment so far as symptomatic until more specific or an alternate diagnosis was made. (2) MDD (major depressive disorder), single episode with atypical features: Status: Acute Code(s): F32.9 - Major depressive disorder, single episode, unspecified (3) MARTY (generalized anxiety disorder): Status: Acute Code(s): F41.1 - Generalized anxiety disorder (4) Mild cognitive disorder: Status: Acute Code(s): F09 - Unspecified mental disorder due to known physiological condition Plan Mr. Young is a 72 year-old male with cognitive decline, changes in behavior and ability to function. Mask-like facial expression, no tremor, atypical parkinsonism, in combination with cognitive decline. MOCA not reflection actual decline in functioning as seen on ACL which he scored 3.4 showing much more severe functional impairment. PLAN 03/26 continue medications. trial of sinemet 25/100mg BID. Reason for continued inpatient stay Substantial Risk for: inability to function Time Spent With Patient Time: Total time managing care of this patient today ____ minutes.
[2023-03-26 09:20] VITALS: BP 135/84; PULSE 69
[2023-03-26 09:25] VITALS: BP 99/68; PULSE 77
[2023-03-26 09:42] VITALS: BP 80/50; PULSE 81
[2023-03-26 10:14] LABS: VITAMIN D (1,25 OH) D3 31 pg/mL; Vit D (1,25-Dihydroxy) Total 31 pg/mL (18-72); Vitamin D (1,25 OH) D2 <8 pg/mL
[2023-03-26] MEDS: Carbidopa/Levodopa 25/100 TABLET 1 TAB PO (14:15)
--- NOTE | 2023-03-26 14:33 | MHC.CLN ---
F/U DIET=REGULAR. MAGIC CUP BID PROVIDES 580 KCALS, 18 G PROTEIN. ATE WELL AT MEALS TODAY. WEIGHT STABLE. CONTINUE TO FOLLOW FOR INTAKE AND WEIGHT.
[2023-03-26] MEDS: Milk of Magnesia 30 ML ORAL.SUSP 15 ML PO (15:17)
[2023-03-26 19:35] VITALS: BP 92/56; PULSE 79; RESP 16; TEMP 36.4; O2SAT 97
[2023-03-26] MEDS: Melatonin 3 MG TABLET 6 MG PO (20:24)
[2023-03-26] MEDS: Atorvastatin Calcium 10 MG TABLET PO (20:24)
[2023-03-26] MEDS: traZODone HCL 25 MG HALFTAB PO (20:24)
[2023-03-26 23:18] LABS: Lyme Abs Screen <0.90 index
[2023-03-27] MEDS: Omeprazole 20 MG CAPSULE.DR PO (06:02)
[2023-03-27 07:50] VITALS: BP 100/66; PULSE 82; RESP 18; TEMP 36.6; O2SAT 98
[2023-03-27] MEDS: LORazepam 0.5 MG TABLET PO ×4 (08:05→20:30)
[2023-03-27] MEDS: Metoprolol Tartrate 25 MG TABLET PO (08:05)
[2023-03-27] MEDS: Sennosides/Docusate Sodium TABLET 2 TAB PO ×2 (08:05→20:32)
[2023-03-27] MEDS: Escitalopram Oxalate 10 MG TABLET PO (08:05)
[2023-03-27] MEDS: Simethicone 80 MG TAB.CHEW PO ×3 (08:05→20:31)
[2023-03-27] MEDS: Carbidopa/Levodopa 25/100 TABLET 1 TAB PO ×3 (08:46→14:03)
--- NOTE | 2023-03-27 12:42 | PC.NURSE ---
Patient complaining of constipation, no bowel movement x 4 days. Abdomen is flat, non tender with hyperactive bowel sounds all quadrants. MOM not effective, given yesterday. Abdon Choi NP updated.
[2023-03-27] MEDS: Lactulose 20 GM/30 ML SOLUTION PO (14:03)
--- NOTE | 2023-03-27 16:06 | HO.PSYCHPN ---
Subjective Subjective Date of Service: 03/27/23 Reason For Visit: failure to thrive Subjective Notes: Conditional Voluntary Interim History: Pt reports feeling better, less anxious. He denies depression. Facial expression continues to present as mask-like. No SI/HI. He reports poor sleep- however, nursing reports he slept through the night. No psychosis or delusions. No behavioral concerns. trial of sinemet- no significant difference at this point. Review of Systems Review of Systems Kicking and shouting during sleep. Yes all other systems are reviewed and are negative Constitutional: Reports as per HPI, Reports no additional constitutional complaints, Reports fatigue, Reports lethargy, Reports poor appetite, Reports weakness and Reports weight loss Eyes: Reports as per HPI and Denies no additional eye complaints Denies system reviewed and no additional complaints, except as documented and Reports as per HPI Cardiovascular: Reports as per HPI, Reports no additional cardiovascular complaints, Denies acrocyanosis, Denies cool extremities, Denies chest pain, Denies chest pain with activity, Reports epigastric discomfort, Denies leg edema, Denies lightheadedness, Denies palpitations, Denies dyspnea, Denies dyspnea on exertion and Denies paroxysmal nocturnal dyspnea Respiratory: Reports as per HPI, Denies no additional respiratory complaints, Denies dyspnea and Denies dyspnea on exertion Gastrointestinal: Reports as per HPI and Denies no additional gastrointestinal complaints Genitourinary: Reports no additional male genitourinary complaints and Reports as per HPI Musculoskeletal: Reports no additional musculoskeletal complaints and Reports as per HPI Skin/Breast: Reports system reviewed and no additional complaints, except as docu and Reports as per HPI Reports system reviewed and no additional complaints, except as documented, Reports as per HPI, Reports memory loss and Reports weakness Psychiatric: Reports no additional psychiatric complaints, Reports as per HPI, Reports anxiety, Reports change in appetite, Reports depression, Reports difficulty concentrating and Reports memory loss Endocrine: Reports no additional endocrine complaints, Reports as per HPI, Reports fatigue and Denies palpitations Hematologic/Lymphatic: Reports no additional hematologic/lymphatic complaints and Reports as per HPI Allergic/Immunologic: Reports no additional allergic/immunologic complaints and Reports as per HPI Mental Status Exam Mental Status Exam Narrative: Appearance: mask-like facial expression, wearing hospital gown, fair hygiene, in NAD Behavior:cooperative Psychomotor: no resting tremors, no agitation or retardation noted Speech: clear, some delayed in response, spontaneous TP: linear TC: feeling better Mood: good Affect: congruent, with somewhat of a mask-like expression SI: denies HI: denies VH/AH:none Delusions: none Insight/judgment: fair x 2 Memory/cog: alert, oriented x 3. MOCA --> most impairment on visuo spatial, executive function, recall. with intact orientation and language. ACL shows greater level of impairment in terms of functional cognition 3.4 Diagnostics Vital Signs (24Hr): Vital Signs - 24 hr 03/26/23 19:35 03/27/23 07:50 Temperature 97.6 F 97.8 F Pulse Rate 79 82 Respiratory Rate 16 18 Blood Pressure 92/56 L 100/66 Pulse Oximetry 97 98 Oxygen Delivery Method Room Air Room Air BMI result Body Mass Index 19.3 Labs 03/10/23 13:52 03/10/23 13:52 Labs: Laboratory Results - last 48 hr 03/21/23 03/23/23 07:52 06:57 1,25 Dihydroxy Vit D 31 1,25 Dihydroxy Vit D2 <8 1,25 Dihydroxy Vit D3 31 Lyme Screen IgG & IgM <0.90 Imaging Radiology Impressions: ITS Impressions Head CT 03/10/23 13:17 Impression: Normal nonenhanced head CT Chest X-Ray 03/10/23 13:20 IMPRESSION: Unremarkable examination. Abdomen Ultrasound 03/10/23 13:45 IMPRESSION: * No acute sonographic abnormalities within the examined abdomen. * No evidence of cholelithiasis, cholecystitis or biliary tract obstruction. * Incidentally noted are a few benign hepatic cysts. Myocardial Perfusion Scan Nuc Med 03/20/23 10:15 Impression: 1. Likely normal myocardial perfusion 2. Gated LVEF is 51% 3. Transient ischemic dilatation not present Stress EKG is negative for ischemia Brain MRI 03/22/23 21:40 IMPRESSION: 1. No intracranial abnormality identified. No unexpected brain parenchymal volume loss. No abnormal enhancement. 2. Multilevel degenerative spondylotic changes resulting in varying degrees of spinal canal and neural foraminal stenosis. Spinal canal stenosis appears mild to moderate at C3-C4. Neural foraminal stenosis is severe bilaterally at C3-C4, severe on the left at C5-C6, and severe on the right at C6-C7. Cervical Spine MRI 03/22/23 21:54 IMPRESSION: 1. No intracranial abnormality identified. No unexpected brain parenchymal volume loss. No abnormal enhancement. 2. Multilevel degenerative spondylotic changes resulting in varying degrees of spinal canal and neural foraminal stenosis. Spinal canal stenosis appears mild to moderate at C3-C4. Neural foraminal stenosis is severe bilaterally at C3-C4, severe on the left at C5-C6, and severe on the right at C6-C7. Thoracic Spine MRI 03/26/23 08:20 IMPRESSION: No significant narrowing of the spinal canal or neural foramina. No cord signal abnormality. Multilevel intervertebral disc height loss with accentuation of the normal thoracic kyphosis. Medications Medications Current Medications Amlodipine Besylate (Amlodipine Besylate 5 Mg Tablet) 5 mg PO DAILY [facility]; Protocol Last Admin: 03/26/23 08:31 Dose: 5 mg Atorvastatin Calcium (Atorvastatin Calcium 10 Mg Tablet) 10 mg PO BEDTIME [facility] Last Admin: 03/26/23 20:24 Dose: 10 mg Carbidopa/Levodopa (Carbidopa/Levodopa 25/100 Tablet) 1 tab PO BID@0900,1400 [facility] Last Admin: 03/27/23 14:03 Dose: 1 tab Escitalopram Oxalate (Escitalopram Oxalate 10 Mg Tablet) 10 mg PO DAILY [facility] Last Admin: 03/27/23 08:05 Dose: 10 mg Fluticasone Propionate (Fluticasone Propionate Nasal 16 Gm [place]) 1 spray NOSTRIL-B DAILY PRN PRN Reason: Allergy Symptoms Lorazepam (Lorazepam 0.5 Mg Tablet) 0.5 mg PO TID@0800,1300,1700 [facility] Last Admin: 03/27/23 12:29 Dose: 0.5 mg Magnesium Hydroxide (Milk Of Magnesia 30 Ml Oral.Susp) 15 ml PO DAILY PRN PRN Reason: Constipation Last Admin: 03/26/23 15:17 Dose: 15 ml Melatonin (Melatonin 3 Mg Tablet) 6 mg PO BEDTIME [facility] Last Admin: 03/26/23 20:24 Dose: 6 mg Metoprolol Tartrate (Metoprolol Tartrate 25 Mg Tablet) 25 mg PO DAILY [facility]; Protocol Last Admin: 03/27/23 08:05 Dose: 25 mg Omeprazole (Omeprazole 20 Mg Capsule.Dr) 20 mg PO DAILY@0700 [facility] Last Admin: 03/27/23 06:02 Dose: 20 mg Ondansetron HCl (Ondansetron Odt 4 Mg Tab.Rapdis) 4 mg TRANSLINGU Q6H PRN PRN Reason: nausea/vomiting Last Admin: 03/24/23 01:37 Dose: 4 mg Senna/Docusate Sodium (Sennosides/Docusate Sodium Tablet) 2 tab PO BID [facility] Last Admin: 03/27/23 08:05 Dose: 2 tab Simethicone (Simethicone 80 Mg Tab.Chew) 80 mg PO TID [facility] Last Admin: 03/27/23 14:03 Dose: 80 mg Trazodone HCl (Trazodone Hcl 25 Mg Halftab) 25 mg PO BEDTIME [facility] Last Admin: 03/26/23 20:24 Dose: 25 mg Allergies Allergies Allergy/AdvReac Type Severity Reaction Status Date / Time No Known Allergies Allergy Verified 03/10/23 11:57 Assessment & Plan Assessment & Plan (1) MDD (major depressive disorder), single episode with atypical features: Status: Acute Code(s): F32.9 - Major depressive disorder, single episode, unspecified (2) Parkinsonism: Qualifiers: Parkinsonism type: unspecified Qualified Code(s): G20.C - Parkinsonism, unspecified Status: Acute Code(s): G20.C - Parkinsonism, unspecified Assessment and Plan: 72 years old man with subacute onset of a behavioral syndrome resulting in anxiety and depression with mild cognitive difficulties, mild parkinsonism noted on physical examination, bilateral leg hyper reflexia that might be due to cervical spinal stenosis but no obvious cord signal abnormality was noted and thoracic spine MRI was pending. As I stated before, leg hyper reflexia may or may not be related to the parkinsonian syndrome we were dealing with. If there to gather, a more generalize encephalopathic process is a consideration. It is important to rule out mechanical reasons in for that reason MRI of thoracic spine is needed. Lyme serology still pending. If thoracic spine MRI does not reveal any significant abnormality, a lumbar puncture should also be perform to rule out any sign suggestive of inflammation to rule out autoimmune or vasculitic type of pathologies. Dementia with Lewy body disease can also present in this manner but there some atypical features. For example his brain imaging does not reveal significant degeneration, which usually is seen with dementia with Lewy body disease. Secondly, this is a relatively brief duration of overall illness for a degenerative disease. Despite that, that is a possibility. Treatment so far as symptomatic until more specific or an alternate diagnosis was made. (3) MARTY (generalized anxiety disorder): Status: Acute Code(s): F41.1 - Generalized anxiety disorder (4) Mild cognitive disorder: Status: Acute Code(s): F09 - Unspecified mental disorder due to known physiological condition Plan Mr. Young is a 72 year-old male with cognitive decline, changes in behavior and ability to function. Mask-like facial expression, no tremor, atypical parkinsonism, in combination with cognitive decline. MOCA / not reflection actual decline in functioning as seen on ACL which he scored 3.4 showing much more severe functional impairment. PLAN 03/26 continue medications. trial of sinemet 25/100mg BID. 03/27 continue tx. Reason for continued inpatient stay Substantial Risk for: stable for discharge Time Spent With Patient Time: Total time managing care of this patient today ____ minutes.
[2023-03-27 18:00] VITALS: BP 121/76; PULSE 82; RESP 18; TEMP 36; O2SAT 99
--- NOTE | 2023-03-27 18:20 | PC.NURSE ---
patient with 10/10 anxiety this morning, asking for his Ativan first thing this morning. All medication given with good effect. Patient did have a bowel movement today after Lactulose was given but still feels constipated. He was also worried that he wouldn't be able to get Ativan tonight if needed. Abdon Choi [employer] updated and prn Ativan order was renewed.
[2023-03-27] MEDS: Melatonin 3 MG TABLET 6 MG PO (20:30)
[2023-03-27] MEDS: Atorvastatin Calcium 10 MG TABLET PO (20:30)
[2023-03-27] MEDS: traZODone HCL 25 MG HALFTAB PO (20:31)
[2023-03-28 07:47] VITALS: BP 112/59; PULSE 95; RESP 18; TEMP 36.4; O2SAT 98
[2023-03-28] MEDS: Omeprazole 20 MG CAPSULE.DR PO (08:38)
[2023-03-28] MEDS: Simethicone 80 MG TAB.CHEW PO (08:38)
[2023-03-28] MEDS: LORazepam 0.5 MG TABLET PO ×2 (08:38→12:02)
[2023-03-28] MEDS: Escitalopram Oxalate 10 MG TABLET PO (08:38)
[2023-03-28] MEDS: Carbidopa/Levodopa 25/100 TABLET 1 TAB PO (08:38)
[2023-03-28] MEDS: Sennosides/Docusate Sodium TABLET 2 TAB PO (08:38)
--- NOTE | 2023-03-28 09:35 | PM.PSYDC ---
DS: Providers Provider Date of Service: 03/28/23 Date of admission: 03/16/23 20:13 Date of discharge: 03/28/23 Primary care physician: Daniel Arguello MD Consults: 03/17/23 16:41 Consult to Cardiology [place]ine [place]ing [place] [facility] [place] Reason for consultation: RBBB and left fasicular block with episgastric pain / GI ruled out 03/21/23 20:30 Consult to Neurology Routine Consulting Provider: [facility] Reason for consultation: atypical parkinsonism w/cognitive decline Has provider been notified: Yes Discharging clinician: Jazmine Choi DS: Diagnosis Discharge Diagnosis (1) MDD (major depressive disorder), single episode with atypical features: Status: Acute (2) Parkinsonism: Status: Acute (3) MARTY (generalized anxiety disorder): Status: Acute (4) Mild cognitive disorder: Status: Acute DS: Medications Discharge Medications Home Medications: Home Medications Medication Instructions Recorded Confirmed citalopram 10 mg tablet 10 mg PO DAILY 03/11/23 03/11/23 fluticasone propionate 50 1 spray intranasal DAILY PRN 03/11/23 03/11/23 mcg/actuation nasal Allergy Symptoms spray,suspension lorazepam 1 mg tablet 1 mg PO TID PRN anxiety 03/11/23 03/11/23 metoprolol tartrate 25 mg tablet 25 mg PO DAILY 03/11/23 03/11/23 mirtazapine 15 mg tablet 15 mg PO BEDTIME 03/11/23 03/11/23 montelukast 10 mg tablet 10 mg PO DAILY 03/11/23 03/11/23 ondansetron 4 mg disintegrating 4 mg PO Q6-8H PRN nausea/vomiting 03/11/23 03/11/23 tablet simvastatin 20 mg tablet 20 mg PO BEDTIME 03/11/23 03/11/23 Mental Status Exam Mental Status Exam Narrative: Appearance: mask-like facial expression, wearing hospital gown, fair hygiene, in NAD Behavior:cooperative Psychomotor: no resting tremors, no agitation or retardation noted Speech: clear, some delayed in response, spontaneous TP: linear TC: feeling better Mood: good Affect: congruent, with somewhat of a mask-like expression SI: denies HI: denies VH/AH:none Delusions: none Insight/judgment: fair x 2 Memory/cog: alert, oriented x 3. MOCA --> most impairment on visuo spatial, executive function, recall. with intact orientation and language. ACL shows greater level of impairment in terms of functional cognition 3.4 Data Data Completed and Pending Completed studies during hospitalization [Text1]: 03/21/23 03/23/23 07:52 06:57 1,25 Dihydroxy Vit D 31 1,25 Dihydroxy Vit D2 <8 1,25 Dihydroxy Vit D3 31 Lyme Screen IgG & IgM <0.90 Lyme Progressive Test Pending HIV 1&2 Ab/P24 Ag 4thGn Nonreactive Imaging Diagnostic Imaging Impressions Head CT 03/10/23 13:17 Impression: Normal nonenhanced head CT Chest X-Ray 03/10/23 13:20 IMPRESSION: Unremarkable examination. Abdomen Ultrasound 03/10/23 13:45 IMPRESSION: * No acute sonographic abnormalities within the examined abdomen. * No evidence of cholelithiasis, cholecystitis or biliary tract obstruction. * Incidentally noted are a few benign hepatic cysts. Myocardial Perfusion Scan Nuc Med 03/20/23 10:15 Impression: 1. Likely normal myocardial perfusion 2. Gated LVEF is 51% 3. Transient ischemic dilatation not present Stress EKG is negative for ischemia Brain MRI 03/22/23 21:40 IMPRESSION: 1. No intracranial abnormality identified. No unexpected brain parenchymal volume loss. No abnormal enhancement. 2. Multilevel degenerative spondylotic changes resulting in varying degrees of spinal canal and neural foraminal stenosis. Spinal canal stenosis appears mild to moderate at C3-C4. Neural foraminal stenosis is severe bilaterally at C3-C4, severe on the left at C5-C6, and severe on the right at C6-C7. Cervical Spine MRI 03/22/23 21:54 IMPRESSION: 1. No intracranial abnormality identified. No unexpected brain parenchymal volume loss. No abnormal enhancement. 2. Multilevel degenerative spondylotic changes resulting in varying degrees of spinal canal and neural foraminal stenosis. Spinal canal stenosis appears mild to moderate at C3-C4. Neural foraminal stenosis is severe bilaterally at C3-C4, severe on the left at C5-C6, and severe on the right at C6-C7. Thoracic Spine MRI 03/26/23 08:20 IMPRESSION: No significant narrowing of the spinal canal or neural foramina. No cord signal abnormality. Multilevel intervertebral disc height loss with accentuation of the normal thoracic kyphosis. DS: Summary Hospital Course Hospital Course: Mr. Vegas is a 72 year-old male who was brought by family due to severe anxious mood exacerbated by GI symptoms of unclear etiology including epigastric pain, nausea, weight loss of more than 30Lbs in past 3 months. He also presents with gait abnormalities- stooped gait, limited movement of limbs when walking, decrease eye blinking no tremors, mask-like facial expression, MOCA does show some cognitive impairment/decline with significant impairment in executive function/visuospatial skills, and recall (0/5) with fairly intact orientation, attention and language (repetition/fluency and naming). He is very soft spoken and focused on epigastric apin. He reports he worries about everything - he worries about his , taking care of the house and being alone; he says he worries about his daughter. He says it does make him sad; He denies previous hx of depression; he endorses lifelong anxiety and worry. He reports zofran helps a little with his GI pain. He is agreeable to increase in lexapro. Past Psychiatric History: no hx IPLOC only rcent rx of remeron (3 months ago) from pcp failed- ? increased agitation; started on celexa 10mg 1 week ago and [place] [facility] [place] outpt psychiatry or therapy HOSPITAL COURSE On the unit, pt was admitted on a CV and placed on 15 minutes checks for safety. Pt presented with atypical parkinsonism including mildly shuffling/short step gait, decreased eye blinking, mask-like facial expression, no tremor but micrographia, decreased arm movement when walking. He also presents with cognitive decline affecting mostly his executive function, visuospatial skills, recall with intact language, and orientation. MOCA 19/30. ACL shows more significant impairment in functional cognitive scored 3.4 (moderate to severe cognitive impairment- in areas such as problem solving, anticipating/understanding cause and effect). Head MRI was mostly unremarkable (cervical MRI did show severe stenosis c3-c4, left c5-c6, right c6-c7; Lumbar MRI showed severe disc height loss but no thoracic cord signal appears normal). CBC- no signs of infection or anemia; and CMP unremarkable without signs of electrolyte abnormalities, renal and liver function wnl. B12 was 396. RPR, Lyme/ HIV all negative. TSH wnl. Lipid panel normal. A1c 5.4% After discussing risks, benefits and alternative treatment options, pt agreed to increase lexapro to 10mg po daily. He was continued on lower dose of ativan 0.5mg po TID which decrease anxiety and he reported some of the abdominal discomfort. He was also continued on omeprazole, sennakot to maintain regular zaira movement as pt reported constipation. His appetite increased. His affect gradually brighten and he reported feeling less overwhelmed, less anxious and less depressed. No SI/HI. There were no signs of psychosis or delusional content noted or reported. His sleep improved although his subjective report of sleep was at times inaccurate compared to registered by staff q15 minutes every night. His thought content was superficial, not much in depth content or showing of understanding of overall medical condition and medical work up recommended by multiple specialist. He did not show any signs of aggression towards self or others. There were no incidences of disruptive behaviors nor need for restraints. Neurology recommended trial of sinemet- 25/100mg po BID. No significant changed noted for two day on the medications- pt advised to follow up with neurology. Suspect he may have atypical parkinsonism that may not be as effective to sinemet. He was also seen by GI- he had upper endoscopy to rule out GI neoplasm, ulcer disease, gastritis, celiac disease. He also had abdominal US- did not show gallstones nor billiary disease. He was also seen by cardiology to rule out cardiac etiology for epigastric pain. He had stress test that did not show ischemia on exertion. He had had outpatient echocardiogram which did not show abnormal jamila wall motion, nor other abnormalities. Cardiology had started amlodipine but pt had prior and after orthostatic hotn. Pt presents overall with motor and non motor symptoms of parkinson's -parkinson's plus pathology including: motor: bradykinesia, decrease eye blinking, shuffling gait, micrographia, NO tremor. non motor: constipation, autonomic instability, mood changes cognitive/memory: executive function (inability to initiate activities, problem solving skills), visuospatial skills, and recall with intact orientation, preserved language. Time spent discussing smoking cessation with patient: 3 to 10 minutes Status at Discharge Cognitive/behavioral status at discharge: Pt calmer, still with mask like facial expression. No SI/HI. No psychosis or delusions. Sleep improved. Appetite improved. no aggression towards self or others. Functional status at discharge: independent ambulation Overall status at discharge: patient is progressing back to baseline Time Spent with Patient Time attestation: Total time managing care of this patient today ____ minutes. Time spent: Greater than 30 minutes Discharge Plan Discharge Anticipated Discharge Date/Time: 03/28/23 09:39 Patient Disposition: Home, Self-Care Discharge Diagnosis: Moderate Cognitive Impairment R/O parkinson's /atypical parkinsonism with cognitive impairment. Referrals: Court Padilla NP [Other] - 04/12/23 1:00 pm (Your first follow up psychiatry appointment is scheduled for 04/12/23 at 1PM) [facility] [Other] - 1 Month (Referral placed and office to follow up with appointment. ) [facility] [Other] - 2 Months (Referral has been placed and office will follow up with you with appointment. Please note the office is stating that appointment will likely be in June or July. ) Daniel Arguello MD [Primary Care Provider] - 04/16/23 (Follow up Primary Care appointment requested. The office will follow up with you directly. ) Discharge Medications: New sennosides-docusate sodium [Senna Plus] 8.6-50 mg Tablet 2 tab PO BID Qty: 60 0RF lorazepam 0.5 mg Tablet 0.5 mg PO TID@0800,1300,1700 Qty: 90 0RF omeprazole 20 mg Capsule,Delayed Release(Dr/Ec) 20 mg PO DAILY@0700 Qty: 30 0RF carbidopa-levodopa 25-100 mg Tablet 1 tab PO BID@0900,1400 Qty: 60 0RF ondansetron 4 mg Tablet,Disintegrating 4 mg translingual Q6H PRN (Reason: nausea/vomiting) Qty: 30 0RF simethicone [Gas Relief (simethicone)] 80 mg Tablet,Chewable 80 mg PO TID Qty: 90 0RF escitalopram oxalate 10 mg Tablet 10 mg PO DAILY Qty: 30 0RF melatonin 3 mg Tablet 6 mg PO BEDTIME Qty: 60 0RF Continued simvastatin 20 mg tablet 20 mg PO BEDTIME fluticasone propionate 50 mcg/actuation spray,suspension 1 spray intranasal DAILY PRN (Reason: Allergy Symptoms) metoprolol tartrate 25 mg tablet 25 mg PO DAILY Discontinued citalopram 10 mg tablet 10 mg PO DAILY montelukast 10 mg tablet 10 mg PO DAILY mirtazapine 15 mg tablet 15 mg PO BEDTIME lorazepam 1 mg tablet 1 mg PO TID PRN (Reason: anxiety) ondansetron 4 mg tablet,disintegrating 4 mg PO Q6-8H PRN (Reason: nausea/vomiting) Discharge Orders: Discharge Order (Routine); Ordered 03/28/23 Ordered By: Jazimne Choi Diet: Regular diet Activity on Discharge: As tolerated Stand Alone Forms: Patient Portal Discharge page, Community Support Care Plan Goals: 1. maintain mood 2. No SI/HI Health Concerns: Follow up with PCP Plan of Treatment: 1. Take medications as prescribed 2. Go to nearest ED or call 911 in event of emergency Assessment: Pt less anxious, less overwhelmed. Mask-like expression but mood is congruent with his report in that he reports feeling better. No SI/HI. No VH/AH. No delusional content. No behavioral concerns. Cognitive impairment in executive function, visuospatial, recall with intact orientation. Atypical parkinsonism symptoms. Discharge Date/Time: 03/28/23 12:10
== END 2023-03-28 12:10 | disposition home or self-care (01) | DRG 881 ==
LOC: HO.ED 03-14 06:55 → HO.PGERI 03-16 20:15
PROVIDERS: Internal Medicine; Nurse Practitioner Family; Admitting Provider Psychiatry & Neurology Psychiatry; Emergency Provider Emergency Medicine; PCP Internal Medicine; Visit Provider Social Worker
PROC: 0DJ08ZZ Inspection of Upper Intestinal Tract, Via Natural or Artificial Opening Endoscopic (ICD-10-PCS; CPT 43235; principal; 2023-03-14 11:30)
DX: F32.9 Major depressive disorder, single episode, unspecified (principal); F41.1 Generalized anxiety disorder; K29.70 Gastritis, unspecified, without bleeding; G20.C Parkinsonism, unspecified; F06.70 Mild neurocognitive disorder due to known physiological condition without behavioral disturbance; K46.9 Unspecified abdominal hernia without obstruction or gangrene; K90.0 Celiac disease; Z20.822 Contact with and (suspected) exposure to COVID-19; Z79.899 Other long term (current) drug therapy
CPT/HCPCS: 36415; 70450; 70553; 71046; 72142; 72146; 72156; 76705; 78452; 80053; 80061; 81003; 82607; 82652; 82746; 83036; 83690; 83735; 83880; 84443; 84484; 85025; 85610; 85652; 86140; 86617; 86618; 86780; 87389; 87502; 87635; 88305; 88342; 93005; 93017; 97161; 99285; A9500; A9585; J0280; J2250; J2405; J2785; S9485

== ENCOUNTER → 2023-03-10 12:12 | Outpatient (BNV) | payer MEDICARE, SELFPAY | PROVIDERS: Emergency Provider Emergency Medicine; PCP Internal Medicine; Visit Provider Social Worker | DX: F32.9 Major depressive disorder, single episode, unspecified (principal); F09 Unspecified mental disorder due to known physiological condition; F41.1 Generalized anxiety disorder | CPT/HCPCS: 90792; 99231; 99232; 99239; 99285 ==

== ENCOUNTER 2023-03-16 20:13 | Outpatient (BNV) | payer MEDICARE, SELFPAY | END 2023-03-19 21:17 | PROVIDERS: Admitting Provider Psychiatry & Neurology Psychiatry; Emergency Provider Emergency Medicine; PCP Internal Medicine; Visit Provider Internal Medicine Cardiovascular Disease | DX: R07.9 Chest pain, unspecified (principal); R06.02 Shortness of breath | CPT/HCPCS: 78452; 93016; 93018 ==

== ENCOUNTER → 2023-03-16 20:13 | Outpatient (BNV) | payer MEDICARE, SELFPAY | PROVIDERS: Admitting Provider Psychiatry & Neurology Psychiatry; Emergency Provider Emergency Medicine; PCP Internal Medicine; Visit Provider Internal Medicine Cardiovascular Disease | DX: R07.89 Other chest pain (principal) | CPT/HCPCS: 99222; 99232 ==

== ENCOUNTER 2023-04-19 12:27 | Emergency (ER) | payer MEDICARE, SELFPAY ==
--- NOTE | ~2023-04-19 | XR_ITS ---
EXAMINATION: XR ABDOMEN CLINICAL INFORMATION: Constipation COMPARISON: None TECHNIQUE: 2 views upper and lower abdomen and pelvis FINDINGS: Included lung bases are clear. There is increased amount of stool projecting over the distribution of the colon raising suspicion for constipation. There is no evidence of bowel obstruction, however. There is no evidence of abnormal calcifications. There is no acute skeletal structure changes. There is no evidence of small-bowel obstruction. There is no free air in the abdomen. XR/XR KUB IMPRESSION: Increased amount of stool in the colon suggesting constipation. Please correlate with clinical presentation.
[2023-04-19 12:35] VITALS: BP 110/75; PULSE 88; RESP 16; TEMP 36.6; O2SAT 98; BMI 19.4
--- NOTE | 2023-04-19 12:36 | ED_ITS ---
HPI - General Adult General Chief complaint: General Medical Stated complaint: failure to thrive sent in by pcp Time Seen by Provider: 04/19/23 19:37 Source: patient and family Mode of arrival: ambulatory Limitations: no limitations History of Present Illness HPI narrative: Patient dementia was admitted to [facility] 10 days ago comes as not been eating and being constipated since then patient feels bloated to trying to take milk a magnesia senna and MiraLax without much help has depression but denies any significant change main complaint at this time is constipation no nausea no vomiting Related Data Home Medications Medication Instructions Recorded Confirmed fluticasone propionate 50 1 spray intranasal DAILY PRN 03/11/23 03/11/23 mcg/actuation nasal Allergy Symptoms spray,suspension metoprolol tartrate 25 mg tablet 25 mg PO DAILY 03/11/23 03/11/23 simvastatin 20 mg tablet 20 mg PO BEDTIME 03/11/23 03/11/23 Previous Rx's Medication Instructions Recorded carbidopa 25 mg-levodopa 100 mg 1 tab PO BID@0900,1400 #60 tabs 03/28/23 tablet escitalopram oxalate 10 mg tablet 10 mg PO DAILY #30 tabs 03/28/23 lorazepam 0.5 mg tablet 0.5 mg PO TID@0800,1300,1700 #90 03/28/23 tabs melatonin 3 mg tablet 6 mg (2 x 3 mg) PO BEDTIME #60 tabs 03/28/23 omeprazole 20 mg capsule,delayed 20 mg PO DAILY@0700 #30 caps 03/28/23 release ondansetron 4 mg disintegrating 4 mg translingual Q6H PRN 03/28/23 tablet nausea/vomiting #30 tabs sennosides 8.6 mg-docusate sodium 2 tab PO BID #60 tabs 03/28/23 50 mg tablet (Senna Plus) simethicone 80 mg chewable tablet 80 mg PO TID #90 tabs 03/28/23 (Gas Relief (simethicone)) cyproheptadine 4 mg tablet 4 mg PO BID #30 tabs 04/19/23 Allergies Allergy/AdvReac Type Severity Reaction Status Date / Time No Known Allergies Allergy Verified 04/19/23 12:43 Review of Systems 2 Review of Systems: Yes all other systems are reviewed and are negative PMFSH Past Medical History Medical History Abdominal pain, epigastric Surgical History Hx of colonoscopy Hx of tonsillectomy Social History Social History Household Members: Family Housing: House Do you presently have visiting nurse or other home services: No Alcohol intake: never Patient Tobacco Use Status: Never used Tobacco Smoked in Last 30 Days: No Use of substances other than those prescribed or required for medical reasons: No Advance Directives: Yes Advance Directives on File: Yes Advance Directives Date on File: 03/12/23 Sexual orientation: Straight/Heterosexual Physical Exam ED Vital Signs: Vital Signs - 24 hr 04/19/23 12:35 04/19/23 19:43 Temperature 97.8 F 98 F Pulse Rate 88 78 Respiratory Rate 16 16 Blood Pressure 110/75 162/95 H Pulse Oximetry 98 99 Oxygen Delivery Method Room Air Room Air BMI result Body Mass Index 19.4 Appearance: Alert. Oriented X3. No acute distress. Eyes: No pallor or icterus ENT: Pharynx normal. Oral Mucosa moist Neck: Normal inspection. Neck supple. CVS: Normal heart rate and rhythm. Pulses normal. Respiratory: No respiratory distress. Equal air entry bilateral, no wheezing/rales/rhonchi Abdomen: Soft and nontender. Bowel sounds are present, no mass palpable, no CVA tenderness rectal: Hard stool in the rectum manual disimpaction done Skin: Skin warm and dry. Normal skin color. Normal skin turgor. Extremities: No lower extremity edema. No calf tenderness Neuro: Oriented X 3. No motor deficit. Course Course Course Narrative: This is a rapid medical exam: Additional HPI, ROS, PE not included below will be deferred to primary provider. Patient is a 72-year-old male with history of Parkinsonism, MDD, MARTY, mild cognitive disorder presenting to the ED with who is also his HCP who reports since patient was recently discharge from the hospital on 03/28, he has not been eating and has been constipated since, also had weight loss. Admission was to [facility] for failure to thrive. reports a small BM on Sunday which was the first in 7 days. Patient reports nausea and some dizziness but denies vomiting. states they have used laxatives with little change in symptoms. Saw PCP on Sunday who recommended patient return to the ED if symptoms did not improve within a few days. Plan: EKG, labs,UA, KUB Medications Administered Discontinued Medications Generic Name Dose Route Start Last Admin Trade Name Dion PRN Reason Stop Dose Admin Bisacodyl 10 mg 04/19/23 20:23 04/19/23 21:03 Bisacodyl 5 Mg Tablet. PO 04/19/23 20:24 10 mg ONCE ONE Administration Lorazepam 0.5 mg 04/19/23 20:24 04/19/23 20:35 Lorazepam 0.5 Mg Tablet PO 04/19/23 20:25 0.5 mg ONCE ONE Administration Medical Decision Making Medical Decision Making [facility] Narrative: Patient has significant constipation manual disimpaction was done and patient had a too big bowel movements and felt much better after that had sandwich in the ER family thinks patient can go home and be managed followed by therapist will give prescription of cyproheptadine to increase his appetite Differential Diagnosis Differential Diagnoses: The differential diagnosis associated with the presentation includes Fecal impaction/large bowel obstruction/depression/dementia Lab Data [facility] Lab Attestation statement: I reviewed the patient's lab results. 04/19/23 13:18 04/19/23 13:18 Labs: Lab Results 04/19/23 04/19/23 Range/Units 13:18 16:15 WBC 5.4 (4.8-10.8) X10*3/uL RBC 5.04 (4.60-5.80) X10*6/uL Hgb 14.9 (14.0-18.0) g/dl Hct 45.0 (42.0-52.0) % MCV 89.3 (80.0-98.0) fL MCH 29.6 (27.0-33.0) pg MCHC 33.1 (31.0-36.0) g/dl RDW 12.9 (11.0-16.0) % Plt Count 233 (160-400) X10*3/uL MPV 9.0 L (9.4-12.4) fL Immature Gran % (Auto) 0.4 (0.0-0.4) % Neut % (Auto) 69.6 (45-73) % Lymph % (Auto) 18.7 L (20-40) % [place] % (Auto) 10.1 (2-11) % Eos % (Auto) 0.6 (0-4) % Baso % (Auto) 0.6 (0-2) % Lymph # (Auto) 1.0 L (1.2-4.9) X10*3/uL [place] # (Auto) 0.5 (0.1-1.2) X10*3/uL Eos # (Auto) 0.0 (0.0-0.4) X10*3/uL Baso # (Auto) 0.0 (0.0-0.2) X10*3/uL Abs Immat Gran (auto) 0.02 (0.00-0.03) X10*3/uL Absolute Neuts (auto) 3.7 (2.0-8.3) x10*3/uL Absolute Nucleated RBC 0.000 (0.0-0.012) X10*3/uL Nucleated RBC % (auto) 0.0 (0.0-0.2) /100WBC Sodium 142 (135-145) mmol/L Potassium 4.1 (3.3-5.1) mmol/L Chloride 103 (96-108) mmol/L Carbon Dioxide 30 H (22-29) mmol/L Anion Gap 13 (12-20) BUN 23 H (9-16) mg/dL Creatinine 1.00 (0.5-1.4) mg/dL Estim Creat Clear Calc 55.4 Estimated GFR > 60 Random Glucose 102 (60-115) mg/dL Calcium 9.7 (8.4-10.2) mg/dL Total Bilirubin 0.5 (0.0-1.0) mg/dL AST 20 (5-37) U/L ALT 19 (0-40) U/L Alkaline Phosphatase 68 (39-117) U/L Total Protein 7.3 (6.5-8.0) g/dL Albumin 4.4 (3.5-5.0) g/dL Urine Color Yellow Urine Appearance Clear Urine pH 6.0 (5.0-9.0) Ur Specific [place] 1.020 (1.005-1.025) Urine Protein Negative (Neg-Trace) mg/dL Urine Glucose (UA) Negative (Negative) mg/dL Urine Ketones Trace (Negative) mg/dL Urine Blood Negative (Negative) Urine Nitrite Negative (Negative) Ur Leukocyte Esterase Negative (Negative) COVID-19 (DELIA) Negative (Negative) COVID-19 Clin Com See Note Influenza Type A (SIXTO) Negative (Negative) Influenza Type B (SIXTO) Negative (Negative) Influenza A & B Note See Note Independent Interpretation I performed an independent interpretation of an: Plain X-Ray Radiology Impression Discussion of test interpretation with radiology: I have reviewed the radiologist's reading. Discharge Plan Discharge Clinical Impression: Constipation, Anxiety Patient Disposition: Home, Self-Care Instructions: Constipation (ED), Anxiety (ED) Additional Instructions: Continue to take medication as prescribed Use Fleet enema if severe constipation Follow-up with your psychiatrist/PCP Take cyproheptadine 1 tablet 2 times a day to increased appetite Prescriptions: New cyproheptadine 4 mg tablet 4 mg PO BID Qty: 30 0RF No Action simvastatin 20 mg tablet 20 mg PO BEDTIME fluticasone propionate 50 mcg/actuation spray,suspension 1 spray intranasal DAILY PRN (Reason: Allergy Symptoms) metoprolol tartrate 25 mg tablet 25 mg PO DAILY sennosides-docusate sodium [Senna Plus] 8.6-50 mg Tablet 2 tab PO BID Qty: 60 0RF lorazepam 0.5 mg Tablet 0.5 mg PO TID@0800,1300,1700 Qty: 90 0RF omeprazole 20 mg Capsule,Delayed Release(Dr/Ec) 20 mg PO DAILY@0700 Qty: 30 0RF carbidopa-levodopa 25-100 mg Tablet 1 tab PO BID@0900,1400 Qty: 60 0RF ondansetron 4 mg Tablet,Disintegrating 4 mg translingual Q6H PRN (Reason: nausea/vomiting) Qty: 30 0RF simethicone [Gas Relief (simethicone)] 80 mg Tablet,Chewable 80 mg PO TID Qty: 90 0RF escitalopram oxalate 10 mg Tablet 10 mg PO DAILY Qty: 30 0RF melatonin 3 mg Tablet 6 mg PO BEDTIME Qty: 60 0RF Interventions: ED Discharge Assessment Last Done: 04/19/23 21:08 Discharge Date/Time: 04/19/23 21:08
--- NOTE | 2023-04-19 12:40 | ECG_ITS ---
Test Reason : failure to thrive Blood Pressure : / mmHG Vent. Rate : 089 BPM Atrial Rate : 089 BPM P-R Int : 150 ms QRS Dur : 092 ms QT Int : 360 ms P-R-T Axes : 090 -80 076 degrees QTc Int : 438 ms Normal sinus rhythm Left axis deviation Inferior infarct , age undetermined Abnormal ECG When compared with ECG of 10-MAR-2023 15:19, Inferior infarct is now Present Referred By: Carleen Castro Electronically Signed By:Antonio Fallon
[2023-04-19 13:25] LABS: MANUAL DIFF FLAG NO
[2023-04-19 13:27] LABS: Basophils Percent Auto 0.6 % (0-2); Eosinophils Percent Auto 0.6 % (0-4); Hemoglobin 14.9 g/dl (14.0-18.0); Imm Gran Abs Auto 0.02 X10*3/uL (0.00-0.03); Imm Gran Pct Auto 0.4 % (0.0-0.4); Lymphocytes Percent Auto 18.7 % (20-40); Mean Corpuscular HGB Conc 33.1 g/dl (31.0-36.0); Mean Corpuscular Hemoglobin 29.6 pg (27.0-33.0); Mean Corpuscular Volume 89.3 fL (80.0-98.0); Monocytes Absolute Auto 0.5 X10*3/uL (0.1-1.2); Monocytes Percent Auto 10.1 % (2-11); Neutrophils Absolute Auto 3.7 x10*3/uL (2.0-8.3); Neutrophils Percent Auto 69.6 % (45-73); Platelet Count 233 X10*3/uL (160-400); Red Blood Count 5.04 X10*6/uL (4.60-5.80); Red Cell Distribution Width 12.9 % (11.0-16.0); White Blood Count 5.4 X10*3/uL (4.8-10.8)
[2023-04-19 13:45] LABS: Alanine Aminotransferase 19 U/L (0-40); Albumin Level 4.4 g/dL (3.5-5.0); Alkaline Phosphatase 68 U/L (39-117); Anion Gap 13 (12-20); Aspartate Amino Transferase 20 U/L (5-37); Bilirubin Total 0.5 mg/dL (0.0-1.0); Blood Urea Nitrogen 23 mg/dL (9-16); Calcium 9.7 mg/dL (8.4-10.2); Carbon Dioxide 30 mmol/L (22-29); Chloride 103 mmol/L (96-108); Creatinine Clr Calc Pharmacy 55.4; Estimated Glomerular Filt Rate > 60; Glucose Random 102 mg/dL (60-115); Potassium 4.1 mmol/L (3.3-5.1); Sodium 142 mmol/L (135-145); Total Protein 7.3 g/dL (6.5-8.0)
[2023-04-19 14:08] LABS: IDNOW Serial# BCCEAD1C; Influenza A Negative (Negative); Influenza B2 Negative (Negative)
[2023-04-19 14:09] LABS: COVID-19 Test Negative (Negative); IDNOW Serial# 08D9AD1C
[2023-04-19 16:25] LABS: Appearance Urine Clear; Color Urine Yellow; Glucose Urine UA Negative (Negative); Leukocyte Esterase Urine Negative (Negative); Nitrite Urine Negative (Negative); Urine Blood Negative (Negative); Urine Ketones Trace mg/dL (Negative); Urine Protein Negative (Neg-Trace)
[2023-04-19 19:43] VITALS: BP 162/95; PULSE 78; RESP 16; TEMP 36.6; O2SAT 99
[2023-04-19] MEDS: LORazepam 0.5 MG TABLET PO (20:35)
[2023-04-19] MEDS: bisacodyL 5 MG TABLET.DR 10 MG PO (21:03)
--- NOTE | 2023-04-19 21:06 | PC.NURSE ---
pt able to have bm after rectal exam with Dr. Jonathan Nava. pt reports sx resolved after bm and ativan. pt medicated per jul per Dr. Nava. pt and comfortable with d/c. pt axox4 ambulatory with steady gait. vss.
== END 2023-04-19 21:08 | disposition home or self-care (01) ==
PROVIDERS: Registered Nurse Emergency; Emergency Provider Internal Medicine; PCP Internal Medicine
DX: K59.00 Constipation, unspecified (principal); R62.7 Adult failure to thrive; F41.9 Anxiety disorder, unspecified; R94.31 Abnormal electrocardiogram [ECG] [EKG]; Z11.52 Encounter for screening for COVID-19; Z20.822 Contact with and (suspected) exposure to COVID-19; Z79.899 Other long term (current) drug therapy
CPT/HCPCS: 74018; 80053; 81003; 85025; 87502; 87635; 93005; 99283; 99284

== ENCOUNTER → 2023-04-19 12:40 | Outpatient (BNV) | payer MEDICARE, SELFPAY | PROVIDERS: Emergency Provider Internal Medicine; PCP Internal Medicine; Visit Provider Internal Medicine Cardiovascular Disease | DX: R94.31 Abnormal electrocardiogram [ECG] [EKG] (principal) | CPT/HCPCS: 93010 ==

== ENCOUNTER 2023-09-28 20:28 | Inpatient (IN) | payer MEDICARE, SELFPAY ==
--- NOTE | 2023-09-28 | ECG_ITS ---
Test Reason : FALL Blood Pressure : / mmHG Vent. Rate : 080 BPM Atrial Rate : 080 BPM P-R Int : 150 ms QRS Dur : 094 ms QT Int : 388 ms P-R-T Axes : 067 -76 075 degrees QTc Int : 447 ms Normal sinus rhythm Incomplete right bundle branch block Left anterior fascicular block Abnormal ECG When compared with ECG of 19-APR-2023 13:10, Incomplete right bundle branch block is now Present Referred By: Generic ED Physician Electronically Signed By:Antonio Fallon
--- NOTE | ~2023-09-28 | CT_ITS ---
EXAMINATION: CT cervical spine wo IV con, CT head/brain wo IV con INDICATION INFORMATION: Reason for Exam fall COMPARISON: None TECHNIQUE: Separate noncontrast CT examinations of the head and cervical spine were performed. Coronal and sagittal images were created for each examination at the technologist workstation. This CT examination was performed using dose optimization techniques as appropriate, variously including the following: *Automated exposure control *Adjustment of mA and/or kV according to patient size (this includes techniques or standardized protocols for targeted exams where dose is matched to indication/reason for exam; i.e. extremities or head) *Use of iterative reconstruction technique DLP: 839 mGy-cm FINDINGS: Head: No acute osseous or soft tissue abnormality. The mastoid air cells and visualized portions of the paranasal sinuses are well aerated. There is no evidence of acute intracranial hemorrhage or territorial infarction. No abnormal mass effect or midline shift is seen. [place] to white matter differentiation is well preserved. There is a thin prominently hypodense subdural collection along the right frontal convexity measuring up to 6 mm with small hyperdense components (series 11 image 42 and 69), compatible with acute on chronic subdural hematoma. No hydrocephalus. No significant volume loss. Patchy periventricular and deep white matter hypoattenuation is consistent with mild small vessel ischemic changes. Cervical spine: There is no evidence of acute cervical spine fracture. Vertebral bodies remain normal in height. Cervical straightening. No significant spondylolisthesis. Moderate to advanced multilevel cervical spondylosis. No pre- or paravertebral soft tissue abnormality is identified. Visualized portions of the lung apices are unremarkable. The thyroid gland is unremarkable. CT/CT cervical spine wo IV con IMPRESSION: 1. Thin acute on chronic subdural hematoma along the right frontal convexity measuring up to 6 mm in thickness with small component of hyperdense acute blood products. 2. No cervical spine fracture or traumatic malalignment.
--- NOTE | ~2023-09-28 | CT_ITS ---
EXAMINATION: CT HEAD WITHOUT CONTRAST CLINICAL INFORMATION: Subdural bleed COMPARISON: CT head 09/28/2023 TECHNIQUE: Contiguous axial imaging was performed from the skull base to vertex without intravenous administration of contrast. This CT examination was performed using dose optimization techniques as appropriate, variously including the following: *Automated exposure control *Adjustment of mA and/or kV according to patient size (this includes techniques or standardized protocols for targeted exams where dose is matched to indication/reason for exam; i.e. extremities or head) *Use of iterative reconstruction technique DLP: 653 mGy-cm FINDINGS: Trace high density acute appearing subdural hemorrhage adjacent to the right frontal lobe without associated mass effect and measuring up to 4 mm in radial width is unchanged compared with 09/28/2023. This producing noted, findings reside within an asymmetric prominent low density right frontal extra-axial fluid collection which may represent a chronic subdural hematoma measuring up to 6 mm in width. Findings are without associated lobar herniation. No acute intracranial infarcts or tumors noted. Moderate segmental calcific atherosclerosis of the cavernous portions of the internal carotid arteries is visualized. Extra cranial soft tissue inflammatory changes and cutaneous clement are present in the midline posterior vertex and occipital region. The orbits and globes are nearly entirely included within the image [id number] and demonstrate no abnormalities. The mastoid air cells and middle ear cavities are clear. The visualized paranasal sinuses are clear. CT/CT head/brain wo IV con IMPRESSION: *Trace acute on chronic right frontal subdural hematoma unchanged compared with 09/28/2023 without associated significant mass effect.
[2023-09-28 20:33] VITALS: BP 124/70; BP 125/77; PULSE 69; PULSE 78; RESP 17; TEMP 37.2; O2SAT 98; O2SAT 99; BMI 17.2
--- NOTE | 2023-09-28 20:33 | PC.NURSE ---
late entry- pt biba from home, a&ox2, dementia at baseline. pt had unwitnessed fall, unknown down time, unknown LOC. pt not on blood thinners. pt noted to have laceration to the back of head, bleeding controlled. pt neuros in tact, equal hand grasps, face symmetry. 20G placed in left forearm, labs obtained and sent to lab. pt given urinal at this time.
[2023-09-28 20:52] LABS: MANUAL DIFF FLAG NO
[2023-09-28 20:53] LABS: Basophils Percent Auto 0.5 % (0-2); Eosinophils Percent Auto 0.5 % (0-4); Hematocrit 39.7 % (42.0-52.0); Hemoglobin 13.8 g/dl (14.0-18.0); Imm Gran Abs Auto 0.01 X10*3/uL (0.00-0.03); Imm Gran Pct Auto 0.2 % (0.0-0.4); Lymphocytes Absolute Auto 1.8 X10*3/uL (1.2-4.9); Lymphocytes Percent Auto 28.8 % (20-40); Mean Corpuscular HGB Conc 34.8 g/dl (31.0-36.0); Mean Corpuscular Hemoglobin 30.9 pg (27.0-33.0); Mean Corpuscular Volume 88.8 fL (80.0-98.0); Monocytes Absolute Auto 0.6 X10*3/uL (0.1-1.2); Monocytes Percent Auto 9.7 % (2-11); Neutrophils Absolute Auto 3.7 x10*3/uL (2.0-8.3); Neutrophils Percent Auto 60.3 % (45-73); Platelet Count 203 X10*3/uL (160-400); Red Blood Count 4.47 X10*6/uL (4.60-5.80); Red Cell Distribution Width 12.6 % (11.0-16.0); White Blood Count 6.1 X10*3/uL (4.8-10.8)
--- NOTE | 2023-09-28 20:54 | MHC.EDTECH ---
Pt changed into hospital gown and red fall precaution socks and wristbamd put on pt. EKG done and handed to a provider
[2023-09-28 21:09] LABS: Alanine Aminotransferase 16 U/L (0-40); Albumin Level 3.8 g/dL (3.5-5.0); Alkaline Phosphatase 63 U/L (39-117); Anion Gap 11 (12-20); Aspartate Amino Transferase 19 U/L (5-37); Bilirubin Total 0.3 mg/dL (0.0-1.0); Blood Urea Nitrogen 19 mg/dL (9-16); Calcium 9.1 mg/dL (8.4-10.2); Carbon Dioxide 22 mmol/L (22-29); Chloride 112 mmol/L (96-108); Creatinine Clr Calc Pharmacy 57.3; Estimated Glomerular Filt Rate > 60; Glucose Random 133 mg/dL (60-115); Potassium 3.9 mmol/L (3.3-5.1); Sodium 141 mmol/L (135-145); Total Protein 6.2 g/dL (6.5-8.0)
[2023-09-28 21:20] LABS: Troponin-I High Sensitivity < 2.7 ng/L (<3.5-35.0)
--- NOTE | 2023-09-28 22:20 | ED.FALL ---
HPI - Fall General Chief Complaint: Fall Stated Complaint: unwitt fall, head bump/lac, dementia, collared Time Seen by Provider: 09/28/23 21:35 Source: patient and family Mode of arrival: EMS Limitations: altered mental status History of Present Illness HPI Narrative: Patient's history of dementia/parkinsonism disease/depression/anxiety was trying to get off the bed around 20:00 when he fell fall was unwitnessed patient does not remember what he hit came with laceration at the back of the head no change in behavior no seizure activity post fall patient has been falling almost every week but never hit his head like today patient is at his baseline mentation on arrival Related Data Home Medications ?Medication ?Instructions ?Recorded ?Confirmed fluticasone propionate 50 1 spray intranasal DAILY PRN 03/11/23 03/11/23 mcg/actuation nasal Allergy Symptoms spray,suspension metoprolol tartrate 25 mg tablet 25 mg PO DAILY 03/11/23 03/11/23 simvastatin 20 mg tablet 20 mg PO BEDTIME 03/11/23 03/11/23 Previous Rx's ?Medication ?Instructions ?Recorded carbidopa 25 mg-levodopa 100 mg 1 tab PO BID@0900,1400 #60 tabs 03/28/23 tablet escitalopram oxalate 10 mg tablet 10 mg PO DAILY #30 tabs 03/28/23 lorazepam 0.5 mg tablet 0.5 mg PO TID@0800,1300,1700 #90 03/28/23 tabs melatonin 3 mg tablet 6 mg (2 x 3 mg) PO BEDTIME #60 tabs 03/28/23 omeprazole 20 mg capsule,delayed 20 mg PO DAILY@0700 #30 caps 03/28/23 release ondansetron 4 mg disintegrating 4 mg translingual Q6H PRN 03/28/23 tablet nausea/vomiting #30 tabs sennosides 8.6 mg-docusate sodium 2 tab PO BID #60 tabs 03/28/23 50 mg tablet (Senna Plus) simethicone 80 mg chewable tablet 80 mg PO TID #90 tabs 03/28/23 (Gas Relief (simethicone)) cyproheptadine 4 mg tablet 4 mg PO BID #30 tabs 04/19/23 Allergies Allergy/AdvReac Type Severity Reaction Status Date / Time No Known Allergies Allergy Verified 09/28/23 20:38 Review of Systems Review of Systems: Yes all other systems are reviewed and are negative [facility] Past Medical History Medical History Abdominal pain, epigastric Surgical History Hx of colonoscopy Hx of tonsillectomy Social History Social History Household Members: Family Housing: House Do you presently have visiting nurse or other home services: No Alcohol intake: never Patient Tobacco Use Status: Never used Tobacco Smoked in Last 30 Days: No Use of substances other than those prescribed or required for medical reasons: No Advance Directives: Yes Advance Directives on File: Yes Advance Directives Date on File: 03/12/23 Do you have a plan to hurt others: No Plan Sexual orientation: Straight/Heterosexual Physical Exam Vital Signs: Vital Signs: Last Vital Signs Temp 98.9 F 09/28/23 20:33 Pulse 78 09/28/23 20:33 Resp 17 09/28/23 20:33 BP 125/77 09/28/23 20:33 Pulse Ox 99 09/28/23 20:33 O2 Del Method Room Air 09/28/23 20:33 BMI result Body Mass Index 17.2 Appearance: Alert. Oriented X2-3. No acute distress. Eyes: PERRLA, No Nystagmus ENT: Pharynx normal. Oral Mucosa moist superficial laceration 3 cm in length in occipital area Neck: Normal inspection. Neck supple. No midline tenderness CVS: Normal heart rate and rhythm. Pulses normal. Respiratory: No respiratory distress. Equal air entry bilateral, no wheezing/rales/rhonchi Abdomen: Soft and nontender. Bowel sounds are present, no mass palpable, no CVA tenderness Skin: Skin warm and dry. Normal skin color. Normal skin turgor. Extremities: No lower extremity edema. No calf tenderness stable pelvis Neuro: Oriented X 2-3. No motor deficit. No sensory deficit.No cerebellar signs , cranial nerves II-XII intact Medications Administered Discontinued Medications Generic Name Dose Route Start Last Admin Trade Name Freq PRN Reason Stop Dose Admin Lorazepam 1 mg 09/28/23 23:58 09/29/23 00:04 Lorazepam 1 Mg Tablet PO 09/28/23 23:59 1 mg ONCE ONE Administration Procedures Laceration Laceration 1: Site: scalp Side (If applicable): right Size (cm): 3 Description: linear Depth: simple, single layer Skin layer closed with: other ([place] #6) Medical Decision Making Medical Decision Making [facility] Narrative: Patient is status post mechanical fall with small right-sided 6 mm subdural bleed acute on chronic no midline shift no change in mental status GCS [address] Hampton neurologist advised for observation on tele floor neuro check q.[address] scan in the a.m. Differential Diagnosis Differential Diagnoses: The differential diagnosis associated with the presentation includes Skull fracture/subarachnoid bleed/subdural bleed/spinal fracture Admission/Observation Consideration of admission/observation: Escalation of care including admission/observation considered Consult Healthcare Provider Management of the patient was discussed with: Hospitalist Lab Data [facility] Lab Attestation statement: I reviewed the patient's lab results. 09/28/23 20:48 09/28/23 20:48 Labs: Lab Results 09/28/23 09/28/23 Range/Units 20:48 23:51 WBC 6.1 (4.8-10.8) X10*3/uL RBC 4.47 L (4.60-5.80) X10*6/uL Hgb 13.8 L (14.0-18.0) g/dl Hct 39.7 L (42.0-52.0) % MCV 88.8 (80.0-98.0) fL MCH 30.9 (27.0-33.0) pg MCHC 34.8 (31.0-36.0) g/dl RDW 12.6 (11.0-16.0) % Plt Count 203 (160-400) X10*3/uL MPV 9.0 L (9.4-12.4) fL Immature Gran % (Auto) 0.2 (0.0-0.4) % Neut % (Auto) 60.3 (45-73) % Lymph % (Auto) 28.8 (20-40) % [place] % (Auto) 9.7 (2-11) % Eos % (Auto) 0.5 (0-4) % Baso % (Auto) 0.5 (0-2) % Lymph # (Auto) 1.8 (1.2-4.9) X10*3/uL [place] # (Auto) 0.6 (0.1-1.2) X10*3/uL Eos # (Auto) 0.0 (0.0-0.4) X10*3/uL Baso # (Auto) 0.0 (0.0-0.2) X10*3/uL Abs Immat Gran (auto) 0.01 (0.00-0.03) X10*3/uL Absolute Neuts (auto) 3.7 (2.0-8.3) x10*3/uL Absolute Nucleated RBC 0.000 (0.0-0.012) X10*3/uL Nucleated RBC % (auto) 0.0 (0.0-0.2) /100WBC Sodium 141 (135-145) mmol/L Potassium 3.9 (3.3-5.1) mmol/L Chloride 112 H (96-108) mmol/L Carbon Dioxide 22 (22-29) mmol/L Anion Gap 11 L (12-20) BUN 19 H (9-16) mg/dL Creatinine 0.87 (0.5-1.4) mg/dL Estim Creat Clear Calc 57.3 Estimated GFR > 60 Random Glucose 133 H (60-115) mg/dL Calcium 9.1 D (8.4-10.2) mg/dL Total Bilirubin 0.3 (0.0-1.0) mg/dL AST 19 (5-37) U/L ALT 16 (0-40) U/L Alkaline Phosphatase 63 (39-117) U/L Troponin I High Sens < 2.7 (<3.5-35.0) ng/L Total Protein 6.2 L (6.5-8.0) g/dL Albumin 3.8 (3.5-5.0) g/dL Urine Color Yellow Urine Appearance Clear Urine pH 6.0 (5.0-9.0) Ur Specific [place] 1.025 (1.005-1.025) Urine Protein Negative (Neg-Trace) mg/dL Urine Glucose (UA) Negative (Negative) mg/dL Urine Ketones Trace (Negative) mg/dL Urine Blood Negative (Negative) Urine Nitrite Negative (Negative) Ur Leukocyte Esterase Negative (Negative) Urine RBC 0-2 (0-2) /HPF Urine WBC 0-5 (0-5) /HPF Ur Squamous Epith Cells 0-2 (0-2) /HPF Urine Bacteria None Seen (None Seen) Hyaline Casts 0-2 (0-2) /LPF Independent Interpretation I performed an independent interpretation of an: EKG and CT Scan Interpretation: Normal sinus rhythm heart rate 80 beats per minute incomplete right bundle-branch block no acute STT wave changes no acute ischemia Radiology Impression Discussion of test interpretation with radiology: I have reviewed the radiologist's reading. Discharge Plan Discharge Clinical Impression: Subdural hemorrhage following injury Patient Disposition: Admitted As Inpatient Print Language: Slovak
[2023-09-29] LABS: Appearance Urine Clear; Color Urine Yellow; Glucose Urine UA Negative (Negative); Leukocyte Esterase Urine Negative (Negative); Nitrite Urine Negative (Negative); Specific Gravity - Urine 1.025 (1.005-1.025); Urine Blood Negative (Negative); Urine Ketones Trace mg/dL (Negative); Urine Protein Negative (Neg-Trace)
[2023-09-29] MEDS: LORazepam 1 MG TABLET PO (00:04)
[2023-09-29 00:05] LABS: Bacteria Urine None Seen (None Seen); Hyaline Casts Urine 0-2 /LPF (0-2); RBC Urine 0-2 /HPF (0-2); Squamous Epithelial Cell Urine 0-2 /HPF (0-2); WBC Urine 0-5 /HPF (0-5)
--- NOTE | 2023-09-29 00:36 | PC.NURSE ---
at bedside placing clement, pt tolerating well. pt medicated per mar, tolerated well with water.
--- NOTE | 2023-09-29 00:53 | PM.IMHP ---
History of Present Illness Date of Service: 09/29/23 Chief Complaint: Fall This is a 73-year-old male with pertinent history of parkinsonism unspecified, mild cognitive disorder, mood disorder, gastroesophageal reflux disease, mixed hyperlipidemia who presents to the emergency department for evaluation after a fall. Patient is a poor historian and history obtained with the help of daughter at bedside. Patient states as he was trying to get up from the bed, he hit his head and fell. Does not remember exact sequence of events. The daughter states that she was not there at the time of fall which she noticed blood on the bed board. She thinks that the patient must have hit his head while he was trying to get out of bed to help the . Patient states he did not lose consciousness prior to the fall. No rhythmic jerking movement of extremities. In the emergency department, laceration of the posterior head was repeated. Imaging with mild acute subdural hematoma. Urology was consulted and patient is okay to be admitted on telemetry floor q.4 hours neuro checks. Unable to obtain complete review of systems Review of Systems Review of Systems: Yes Unobtainable due to mental status [facility] Medical History (Updated 09/29/23 @ 01:03 by Rich Bowling MD) Mild cognitive disorder MARTY (generalized anxiety disorder) MDD (major depressive disorder), single episode with atypical features Parkinsonism Abdominal pain, epigastric Pertinent family history: Unable to obtain Surgical History Hx of colonoscopy Hx of tonsillectomy Social History Household Members: Family Housing: House Do you presently have visiting nurse or other home services: No Alcohol intake: never Patient Tobacco Use Status: Never used Tobacco Smoked in Last 30 Days: No Use of substances other than those prescribed or required for medical reasons: No Advance Directives: Yes Advance Directives on File: Yes Advance Directives Date on File: 03/12/23 Do you have a plan to hurt others: No Plan Sexual orientation: Straight/Heterosexual Meds Allergies Allergy/AdvReac Type Severity Reaction Status Date / Time No Known Allergies Allergy Verified 09/28/23 20:38 Home Medications ?Medication ?Instructions ?Recorded ?Confirmed ?Last Taken ?Type fluticasone propionate 50 1 spray intranasal DAILY PRN 03/11/23 03/11/23 Unknown History mcg/actuation nasal Allergy Symptoms spray,suspension metoprolol tartrate 25 mg tablet 25 mg PO DAILY 03/11/23 03/11/23 Unknown History simvastatin 20 mg tablet 20 mg PO BEDTIME 03/11/23 03/11/23 Unknown History Physical Exam Vital Signs and Narrative: Vital Signs: Last Vital Signs Temp 98.9 F 09/28/23 20:33 Pulse 78 09/28/23 20:33 Resp 17 09/28/23 20:33 BP 125/77 09/28/23 20:33 Pulse Ox 99 09/28/23 20:33 O2 Del Method Room Air 09/28/23 20:33 BMI result Body Mass Index 17.2 Elderly male lying in bed in no distress with laceration to posterior head Neck supple, no JVD Regular rate and rhythm, S1-S2 heard Regular breath sounds bilaterally, no wheezing or crackles appreciated Abdomen soft nontender, no guarding, no rigidity Patient is awake, alert and oriented to self, place, disoriented to time and person ; no focal motor weakness Psych: Normal mood No pedal edema Results Labs 09/28/23 20:48 09/28/23 20:48 Labs: Laboratory Results - last 24 hr 09/28/23 09/28/23 20:48 23:51 MCV 88.8 MCH 30.9 MCHC 34.8 RDW 12.6 Plt Count 203 MPV 9.0 L Immature Gran % (Auto) 0.2 Neut % (Auto) 60.3 Lymph % (Auto) 28.8 [place] % (Auto) 9.7 Eos % (Auto) 0.5 Baso % (Auto) 0.5 Lymph # (Auto) 1.8 [place] # (Auto) 0.6 Eos # (Auto) 0.0 Baso # (Auto) 0.0 Abs Immat Gran (auto) 0.01 Absolute Neuts (auto) 3.7 Absolute Nucleated RBC 0.000 Nucleated RBC % (auto) 0.0 Anion Gap 11 L Estim Creat Clear Calc 57.3 Estimated GFR > 60 Random Glucose 133 H Calcium 9.1 D Total Bilirubin 0.3 AST 19 ALT 16 Alkaline Phosphatase 63 Troponin I High Sens < 2.7 Total Protein 6.2 L Albumin 3.8 Urine Color Yellow Urine Appearance Clear Urine pH 6.0 Ur Specific [place] 1.025 Urine Protein Negative Urine Glucose (UA) Negative Urine Ketones Trace Urine Blood Negative Urine Nitrite Negative Ur Leukocyte Esterase Negative Urine RBC 0-2 Urine WBC 0-5 Ur Squamous Epith Cells 0-2 Urine Bacteria None Seen Hyaline Casts 0-2 Imaging Radiologist's Impressions: Impressions Cervical Spine CT 09/28/23 22:42 IMPRESSION: 1. Thin acute on chronic subdural hematoma along the right frontal convexity measuring up to 6 mm in thickness with small component of hyperdense acute blood products. 2. No cervical spine fracture or traumatic malalignment. Head CT 09/28/23 22:42 IMPRESSION: 1. Thin acute on chronic subdural hematoma along the right frontal convexity measuring up to 6 mm in thickness with small component of hyperdense acute blood products. 2. No cervical spine fracture or traumatic malalignment. Assessment and Plan (1) Subdural hemorrhage following injury: Status: Acute Plan This is a 73-year-old male with pertinent history of parkinsonism unspecified, mild cognitive disorder, mood disorder, gastroesophageal reflux disease, mixed hyperlipidemia who presents to the emergency department for evaluation after a fall. #. Acute subdural hematoma due to mechanical fall. Will admit patient with secured entrance monitor and Q 4 hour neuro checks. Repeat CT head in a.m.. Neurology was consulted from the ER, appreciate assistance #. Parkinsonism, unspecified: Patient on carbidopa levodopa #. Mild cognitive disorder: Maintain sleep-wake cycle #. Mood disorder: Continue home mood stabilizers #. Gastroesophageal reflux disease: On PPI #. Mixed hyperlipidemia: On statin Med rec pending DVT prophylaxis: Mechanical DNR/DNI. Discussed with daughter at bedside Admit as inpatient and will require two night minimum hospital stay for monitoring of subdural hematoma with frequent neuro checks (as above), which is not possible in a lesser acute setting. Specialist consult pending Quality Stroke Does the patient have a stroke diagnosis?: No VTE Prior VTE?: No VTE Risk Level:: Medical - moderate - high VTE Device Contraindication: N/A - Device Ordered VTE Drug Contraindication: Treatment Not Indicated
[2023-09-29] MEDS: risperiDONE 1 MG TABLET PO (01:33)
[2023-09-29 01:41] VITALS: BP 118/78; PULSE 73; RESP 16; TEMP 37.1; O2SAT 98
[2023-09-29 06:20] VITALS: BP 122/81; PULSE 86; RESP 14; TEMP 36.8; O2SAT 99
[2023-09-29 06:55] LABS: MANUAL DIFF FLAG NO
[2023-09-29 06:59] LABS: Basophils Percent Auto 0.3 % (0-2); Eosinophils Percent Auto 0.3 % (0-4); Hematocrit 40.3 % (42.0-52.0); Imm Gran Abs Auto 0.03 X10*3/uL (0.00-0.03); Imm Gran Pct Auto 0.5 % (0.0-0.4); Lymphocytes Absolute Auto 1.4 X10*3/uL (1.2-4.9); Lymphocytes Percent Auto 22.4 % (20-40); Mean Corpuscular HGB Conc 34.7 g/dl (31.0-36.0); Mean Corpuscular Hemoglobin 31.4 pg (27.0-33.0); Mean Corpuscular Volume 90.4 fL (80.0-98.0); Mean Platelet Volume 9.4 fL (9.4-12.4); Monocytes Absolute Auto 0.6 X10*3/uL (0.1-1.2); Neutrophils Absolute Auto 4.3 x10*3/uL (2.0-8.3); Neutrophils Percent Auto 67.5 % (45-73); Platelet Count 209 X10*3/uL (160-400); Red Blood Count 4.46 X10*6/uL (4.60-5.80); Red Cell Distribution Width 12.8 % (11.0-16.0); White Blood Count 6.3 X10*3/uL (4.8-10.8)
[2023-09-29 07:12] LABS: Anion Gap 13 (12-20); Blood Urea Nitrogen 16 mg/dL (9-16); Calcium 9.2 mg/dL (8.4-10.2); Carbon Dioxide 25 mmol/L (22-29); Chloride 108 mmol/L (96-108); Creatinine Clr Calc Pharmacy 58.6; Estimated Glomerular Filt Rate > 60; Glucose Random 93 mg/dL (60-115); Potassium 3.8 mmol/L (3.3-5.1); Sodium 142 mmol/L (135-145)
--- NOTE | 2023-09-29 07:12 | P.PNIM_ITS ---
Subjective Subjective Date of Service: 09/29/23 Interval History: Seen in follow up for acute on chronic subdural hematoma Interval history: Lethargic but oriented x3. Knows why he has in the hospital, recalls falling. No other complaints Review of Systems Review of Systems: Yes all other systems are reviewed and are negative Physical Exam 2 Vital Signs: Vital Signs: Last Vital Signs Temp 98.2 F 09/29/23 06:20 Pulse 86 09/29/23 06:20 Resp 14 09/29/23 06:20 BP 122/81 09/29/23 06:20 Pulse Ox 99 09/29/23 06:20 O2 Del Method Room Air 09/29/23 06:20 BMI result Body Mass Index 17.2 Constitutional - lethargic, No apparent distress Eyes - PERRLA, EOMI Cardiovascular - S1S2, RRR, No edema Respiratory - Normal lung expansion, Normal respiratory effort, No respiratory distress, CTA bilaterally Gastrointestinal - NT / ND; +BS; No rebound or guarding Extremities - no calf tenderness bilaterally, no swelling Skin - Warm/Dry Neurological - Alert & oriented x3, CN II-XII in tact, 5/5 strength BUE and BLE Psychological - Appropriate affect Objective Data Active Medications Acetaminophen (Acetaminophen 325 Mg Tablet) 650 mg PO Q6H PRN PRN Reason: Pain, Mild (Pain Scale 1-3) Acetaminophen (Acetaminophen Supp 650 Mg Supp.Rect) 650 mg ND Q6H PRN PRN Reason: Pain, Mild (Pain Scale 1-3) Melatonin (Melatonin 3 Mg Tablet) 6 mg PO BEDTIME PRN PRN Reason: Insomnia Ondansetron HCl (Ondansetron Hcl 4 Mg/2 Ml Vial) 4 mg IVPUSH Q8H PRN PRN Reason: Nausea and Vomiting Labs 09/29/23 06:03 09/29/23 06:03 Labs: Laboratory Results - last 24 hr 09/28/23 09/28/23 09/29/23 20:48 23:51 06:03 MCV 88.8 90.4 MCH 30.9 31.4 MCHC 34.8 34.7 RDW 12.6 12.8 Plt Count 203 209 MPV 9.0 L 9.4 Immature Gran % (Auto) 0.2 0.5 H Neut % (Auto) 60.3 67.5 Lymph % (Auto) 28.8 22.4 [place] % (Auto) 9.7 9.0 Eos % (Auto) 0.5 0.3 Baso % (Auto) 0.5 0.3 Lymph # (Auto) 1.8 1.4 [place] # (Auto) 0.6 0.6 Eos # (Auto) 0.0 0.0 Baso # (Auto) 0.0 0.0 Abs Immat Gran (auto) 0.01 0.03 Absolute Neuts (auto) 3.7 4.3 Absolute Nucleated RBC 0.000 0.000 Nucleated RBC % (auto) 0.0 0.0 Anion Gap 11 L Estim Creat Clear Calc 57.3 Estimated GFR > 60 Random Glucose 133 H Calcium 9.1 D Total Bilirubin 0.3 AST 19 ALT 16 Alkaline Phosphatase 63 Troponin I High Sens < 2.7 Total Protein 6.2 L Albumin 3.8 Urine Color Yellow Urine Appearance Clear Urine pH 6.0 Ur Specific [place] 1.025 Urine Protein Negative Urine Glucose (UA) Negative Urine Ketones Trace Urine Blood Negative Urine Nitrite Negative Ur Leukocyte Esterase Negative Urine RBC 0-2 Urine WBC 0-5 Ur Squamous Epith Cells 0-2 Urine Bacteria None Seen Hyaline Casts 0-2 Assessment and Plan (1) Subdural hemorrhage following injury: Status: Acute Plan 73-year-old male with pertinent history of parkinsonism unspecified, mild cognitive disorder, mood disorder, gastroesophageal reflux disease, mixed hyperlipidemia admitted for acute on chronic subdural hematoma #Acute subdural hematoma due to mechanical fall -Continue telemetry -Neuro checks q4h -Repeat head CT per neuro -Neuro consult-PT eval #Parkinsonism, unspecified -continue carbidopa levodopa #Mild cognitive disorder -Maintain sleep-wake cycle #Mood disorder -Continue home mood stabilizers #Gastroesophageal reflux disease -continue PPI #Mixed hyperlipidemia -continue statin DVT prophylaxis- [facility] DNR/DNI Pt requires ongoing inpt stay due to acute on chronic subdural hematoma requiring neuro checks and expert consulation as well as follow up ct to monitor for any progressive symptoms Quality Stroke Does the patient have a stroke diagnosis?: No VTE Prior VTE?: No VTE Risk Level:: Medical - moderate - high VTE Device Contraindication: N/A - Device Ordered VTE Drug Contraindication: Treatment Not Indicated
[2023-09-29 08:30] VITALS: BP 116/73; PULSE 85; RESP 21; TEMP 36.9; O2SAT 99
--- NOTE | 2023-09-29 09:14 | PHA.MEDREC ---
Pharmacy Consult ? Medication Reconciliation Pharmacy has completed the medication reconciliation.Med rec complete, spoke to patients daughter and compared with pharmacy claim history.
[2023-09-29 09:29] VITALS: BP 115/75; PULSE 91; RESP 18; O2SAT 98
--- NOTE | 2023-09-29 09:32 | PC.NURSE ---
pt alert and oriented to person place and time. pt aware of who the president is but is unsure why he is in the hospital. GCS 14. at bedside, aware of plan of care. transitioned pt into hospital bed for comfort and bed alarm
[2023-09-29] MEDS: ondansetron HCL 4 MG/2 ML VIAL IVPUSH (09:37)
--- NOTE | 2023-09-29 11:11 | P.DS_ITS ---
DS: Providers Provider Date of Service: 09/29/23 Date of admission: 09/29/23 00:53 Date of discharge: 09/29/23 Primary care physician: Unknown Physician Attending physician on admission: Rich Bowling Consults: 09/29/23 01:01 Consult to Neurology Routine Consulting Provider: [facility] Reason for consultation: subdural hematoma Attending physician on discharge: Guilherme Ingram Discharging clinician: Ayana Zimmerman DS: Diagnosis Discharge Diagnosis (1) Subdural hemorrhage following injury: Status: Acute DS: Summary Hospital Course Hospital Course: HPI on admission: Chief Complaint: Fall This is a 73-year-old male with pertinent history of parkinsonism unspecified, mild cognitive disorder, mood disorder, gastroesophageal reflux disease, mixed hyperlipidemia who presents to the emergency department for evaluation after a fall. Patient is a poor historian and history obtained with the help of daughter at bedside. Patient states as he was trying to get up from the bed, he hit his head and fell. Does not remember exact sequence of events. The daughter states that she was not there at the time of fall which she noticed blood on the bed board. She thinks that the patient must have hit his head while he was trying to get out of bed to help the . Patient states he did not lose consciousness prior to the fall. No rhythmic jerking movement of extremities. In the emergency department, laceration of the posterior head was repeated. Imaging with mild acute subdural hematoma. Urology was consulted and patient is okay to be admitted on telemetry floor q.4 hours neuro checks. Unable to obtain complete review of systems Hospital course: Hospital course uneventful. Pt admitted to medicine early this morning due to acute on chronic subdural hematoma due to mechnical fall measuring 6mm. Repeat CT scan this morning with stable findings. Pt neurologically in tact without any focal deficits. He does have mild cognitive impairment (unspecified) and parkinsonism with mentation consistent with baseline per at bedside. He was evaluated by neurology on morning of dicharge. No surgical intervention indicated. He should avoid any blood thinners or NSAIDs for now. Neuro recommending outpt follow up for further evaluation of mentation and recurrent falls. Referral placed. The patient did sustain scalp laceration 2/2 to fall with 6 clement placed on scalp. He is advised he should be seen by pcp or at urgent care/ed for removal in 10-14 days. For parkinsonism, was continued on sinemet. For mood disorder, continued on home meds and continued on ppi for gerd and statin for hld. He should continue all home medications as prescribed. He does have PT through [facility] already set to start this week. Will discharge home with his . Status at Discharge Functional status at discharge: independent ambulation Overall status at discharge: patient is progressing back to baseline Time Attestation Discharge Coordination Time (in mins): 42 Quality: Safe Use of Opioids Does Pt have an Active Cancer Diagnosis on the Problem List?: No Quality: Stroke Does the patient have a stroke diagnosis?: No Physical Exam Vital Signs: Vital Signs: Last Vital Signs Temp 98.5 F 09/29/23 08:30 Pulse 91 09/29/23 09:29 Resp 18 09/29/23 09:29 BP 115/75 09/29/23 09:29 Pulse Ox 98 09/29/23 09:29 O2 Del Method Room Air 09/29/23 09:29 BMI result Body Mass Index 17.2 Constitutional - Awake and Alert, No apparent distress Eyes - PERRLA, EOMI Cardiovascular - S1S2, RRR, No edema Respiratory - Normal lung expansion, Normal respiratory effort, No respiratory distress, CTA bilaterally Gastrointestinal - NT / ND; +BS; No rebound or guarding Extremities - no calf tenderness bilaterally, no swelling Skin - Warm/Dry Neurological - Alert & oriented x3, CN II-XII in tact, 5/5 strength BUE and BLE Psychological - Appropriate affect DS: Data Data Completed and Pending Completed studies during hospitalization [Text1]: Procedures Excision of Duodenum, Via Natural or Artificial Opening Endoscopic, Diagnostic (03/16/23) Excision of Stomach, Pylorus, Via Natural or Artificial Opening Endoscopic, Diagnostic (03/16/23) Labs on day of discharge: Laboratory Results - last 24 hr 09/28/23 09/28/23 09/29/23 20:48 23:51 06:03 WBC 6.1 6.3 RBC 4.47 L 4.46 L Hgb 13.8 L 14.0 Hct 39.7 L 40.3 L MCV 88.8 90.4 MCH 30.9 31.4 MCHC 34.8 34.7 RDW 12.6 12.8 Plt Count 203 209 MPV 9.0 L 9.4 Immature Gran % (Auto) 0.2 0.5 H Neut % (Auto) 60.3 67.5 Lymph % (Auto) 28.8 22.4 [place] % (Auto) 9.7 9.0 Eos % (Auto) 0.5 0.3 Baso % (Auto) 0.5 0.3 Lymph # (Auto) 1.8 1.4 [place] # (Auto) 0.6 0.6 Eos # (Auto) 0.0 0.0 Baso # (Auto) 0.0 0.0 Abs Immat Gran (auto) 0.01 0.03 Absolute Neuts (auto) 3.7 4.3 Absolute Nucleated RBC 0.000 0.000 Nucleated RBC % (auto) 0.0 0.0 Sodium 141 142 Potassium 3.9 3.8 Chloride 112 H 108 Carbon Dioxide 22 25 Anion Gap 11 L 13 BUN 19 H 16 Creatinine 0.87 0.85 Estim Creat Clear Calc 57.3 58.6 Estimated GFR > 60 > 60 Random Glucose 133 H 93 Calcium 9.1 D 9.2 Total Bilirubin 0.3 AST 19 ALT 16 Alkaline Phosphatase 63 Troponin I High Sens < 2.7 Total Protein 6.2 L Albumin 3.8 Urine Color Yellow Urine Appearance Clear Urine pH 6.0 Ur Specific [place] 1.025 Urine Protein Negative Urine Glucose (UA) Negative Urine Ketones Trace Urine Blood Negative Urine Nitrite Negative Ur Leukocyte Esterase Negative Urine RBC 0-2 Urine WBC 0-5 Ur Squamous Epith Cells 0-2 Urine Bacteria None Seen Hyaline Casts 0-2 Discharge Plan Discharge Anticipated Discharge Date/Time: 09/29/23 11:53 Patient Disposition: Home Health Service Discharge Diagnosis: subdural hematoma, scalp laceration Referrals: Jose E Hampton MD [Physician] - 1 Week Physician,Unknown J [Primary Care Provider] - 1 Week Discharge Medications: Continued lactulose 10 gram/15 mL Solution 10 g PO DAILY ondansetron 4 mg tablet,disintegrating 4 mg translingual Q12H PRN (Reason: nausea/vomiting) megestrol 20 mg Tablet 20 mg PO BID escitalopram oxalate 20 mg Tablet 20 mg PO DAILY risperidone 0.25 mg Tablet 0.25 mg PO DAILY PRN (Reason: Agitation) docusate sodium 100 mg Capsule 100 mg PO TID sennosides [senna] 8.6 mg Tablet 8.6 mg PO BID omeprazole 20 mg capsule,delayed release(DR/EC) 20 mg PO DAILY@0630 glycerin (adult) Suppository 1 supp NM DAILY PRN (Reason: Constipation) lorazepam 0.5 mg Tablet 0.5 mg PO TID@0800,1300,1700 Qty: 90 0RF Discharge Orders: Discharge Order (Routine); Ordered 09/29/23 Ordered By: Ayana Zimmerman Diet: Advance to usual diet Activity on Discharge: As tolerated Stand Alone Forms: Patient Portal Discharge page Print Language: Ecuad[place] Care Plan Goals: Subdural hematoma -You have a chronic subdural hematoma (small collection of blood between the skull and the brain) with very minimal worsening following your fall. No surgical intervention is required -Refrain from any NSAIDs or blood thinners -Follow up with neurology outpatient (referral placed) -Continue with plan for PT at home Scalp laceration -Six skin scaples placed on scalp -Keep area clean and dry well -Follow up with PCP or at urgent care/ER for removal in 10-14 days Health Concerns: Subdural hematoma Scalp laceration Plan of Treatment: See care plan goals Outpt follow up with neurology, home PT Assessment: See care plan goals Discharge Date/Time: 09/29/23 12:29
--- NOTE | 2023-09-29 11:17 | P.CNNE_ITS ---
History of Present Illness Data of Consult Service Date: 09/29/23 Primary Care Provider: Unknown Physician HPI Reason for consult: Subdural hemorrhage 73 years old man with previous history of subdural hemorrhage has been falling and came to hospital after fall and was noted to have a small acute to subacute subdural hemorrhage and was admitted. There was no sign of any seizure. Review of Systems 2 Review of Systems: Loss of balance and falling and cognitive issues. [facility] Past Medical History Medical History (Updated 09/29/23 @ 11:19 by Jose E Hampton MD) Mild cognitive disorder MARTY (generalized anxiety disorder) MDD (major depressive disorder), single episode with atypical features Parkinsonism Abdominal pain, epigastric Surgical History Surgical History Hx of colonoscopy Hx of tonsillectomy Social History Social History Household Members: Family Housing: House Do you presently have visiting nurse or other home services: No Unable to assess alcohol history related to: Unable to respond Alcohol intake: never Patient Tobacco Use Status: Never used Tobacco Smoked in Last 30 Days: No Use of substances other than those prescribed or required for medical reasons: No Advance Directives: Yes Advance Directives on File: Yes Advance Directives Date on File: 03/12/23 Do you have a plan to hurt others: No Plan Nutrition Risks: No Nutritional Risk Sexual orientation: Straight/Heterosexual Meds Allergies Allergy/AdvReac Type Severity Reaction Status Date / Time No Known Allergies Allergy Verified 09/28/23 20:38 Active Medications: Current Medications Acetaminophen (Acetaminophen 325 Mg Tablet) 650 mg PO Q6H PRN PRN Reason: Pain, Mild (Pain Scale 1-3) Acetaminophen (Acetaminophen Supp 650 Mg Supp.Rect) 650 mg [place] Q6H PRN PRN Reason: Pain, Mild (Pain Scale 1-3) Docusate Sodium (Docusate Sodium 100 Mg Capsule) 100 mg PO TID JAY Escitalopram Oxalate (Escitalopram Oxalate 20 Mg Tablet) 20 mg PO DAILY JAY Glycerin (Glycerin Adult Supp.Rect) 1 supp LA DAILY PRN PRN Reason: Constipation Sodium Chloride (Ns) 1,000 mls @ 100 mls/hr IVCONT .Q10H JAY Stop: 09/29/23 19:29 Lactulose (Lactulose 20 Gm/30 Ml Solution) 10 gm PO DAILY [facility] Lorazepam (Lorazepam 0.5 Mg Tablet) 0.5 mg PO TID@0800,1300,1700 [facility] Megestrol Acetate (Megestrol Acetate 20 Mg Tablet) 20 mg PO BID [facility] Melatonin (Melatonin 3 Mg Tablet) 6 mg PO BEDTIME PRN PRN Reason: Insomnia Omeprazole (Omeprazole 20 Mg Capsule.Dr) 20 mg PO DAILY@0630 [facility] Ondansetron HCl (Ondansetron Hcl 4 Mg/2 Ml Vial) 4 mg IVPUSH Q8H PRN PRN Reason: Nausea and Vomiting Last Admin: 09/29/23 09:37 Dose: 4 mg Ondansetron HCl (Ondansetron Odt 4 Mg Tab.Rapdis) 4 mg TRANSLINGU Q12H PRN PRN Reason: nausea/vomiting Risperidone (Risperidone 0.25 Mg Tablet) 0.25 mg PO DAILY PRN PRN Reason: Agitation Senna (Sennosides 8.6 Mg Tablet) 8.6 mg PO BID [facility] Home Medications ?Medication ?Instructions ?Recorded ?Confirmed ?Last Taken ?Type docusate sodium 100 mg capsule 100 mg PO TID 09/29/23 09/29/23 Unknown History escitalopram oxalate 20 mg tablet 20 mg PO DAILY 09/29/23 09/29/23 Unknown History glycerin (adult) 1 supp [place] DAILY PRN Constipation 09/29/23 09/29/23 Unknown History lactulose 10 gram/15 mL oral 10 g PO DAILY 09/29/23 09/29/23 Unknown History solution megestrol 20 mg tablet 20 mg PO BID 09/29/23 09/29/23 Unknown History omeprazole 20 mg capsule,delayed 20 mg PO DAILY@0630 09/29/23 09/29/23 Unknown History release ondansetron 4 mg disintegrating 4 mg translingual Q12H PRN 09/29/23 09/29/23 Unknown History tablet nausea/vomiting risperidone 0.25 mg tablet 0.25 mg PO DAILY PRN Agitation 09/29/23 09/29/23 Unknown History sennosides 8.6 mg tablet (senna) 8.6 mg PO BID 09/29/23 09/29/23 Unknown History Physical Exam 2 Vital Signs: Vital Signs: Last Vital Signs Temp 98.5 F 09/29/23 08:30 Pulse 91 05/25/24 09:29 Resp 18 09/29/23 09:29 BP 115/75 09/29/23 09:29 Pulse Ox 98 09/29/23 09:29 O2 Del Method Room Air 09/29/23 09:29 BMI result Body Mass Index 17.2 Neuro: Other: He is alert and awake with normal spontaneity of speech fluency comprehension and flat affect. Face is symmetrical. Visual stearns are full. He is able to move all 4 extremities without difficulties. Plantars are flexor. He is following commands. There is no sign of distress. Results Labs 09/29/23 06:03 09/29/23 06:03 Labs: Short CBC 09/28/23 09/29/23 Range/Units 20:48 06:03 WBC 6.1 6.3 (4.8-10.8) X10*3/uL Hgb 13.8 L 14.0 (14.0-18.0) g/dl Hct 39.7 L 40.3 L (42.0-52.0) % Plt Count 203 209 (160-400) X10*3/uL BMP 09/28/23 09/29/23 20:48 06:03 Sodium 141 142 Potassium 3.9 3.8 Chloride 112 H 108 Carbon Dioxide 22 25 BUN 19 H 16 Creatinine 0.87 0.85 Calcium 9.1 D 9.2 Liver Function 09/28/23 Range/Units 20:48 Total Bilirubin 0.3 (0.0-1.0) mg/dL AST 19 (5-37) U/L ALT 16 (0-40) U/L Alkaline Phosphatase 63 (39-117) U/L Albumin 3.8 (3.5-5.0) g/dL Urine 09/28/23 Range/Units 23:51 Urine Color Yellow Urine Appearance Clear Urine pH 6.0 (5.0-9.0) Ur Specific [place] 1.025 (1.005-1.025) Urine Protein Negative (Neg-Trace) mg/dL Urine Glucose (UA) Negative (Negative) mg/dL Noncontrast head CT revealed mild cortical area of hypodensity suggestive of chronic subdural hemorrhage and in addition a small area of hyperdensity probably an acute component. There was not much difference from last night CTA and this morning's. Assessment and Plan (1) Subdural hemorrhage: Status: Acute Small traumatic subdural hemorrhage. He and his family were educated to be careful and take precautions to avoid falls. Outpatient evaluation can be done for further reasons for loss of balance and falling. Otherwise, blood thinners are avoided at this time. Surgical intervention is not needed as bleeding is mild. Procedures Date of Service Date of Service: 09/29/23
[2023-09-29] MEDS: Docusate Sodium 100 MG CAPSULE PO (11:51)
[2023-09-29] MEDS: Sennosides 8.6 MG TABLET PO (11:51)
[2023-09-29] MEDS: Lactulose 20 GM/30 ML SOLUTION 10 GM PO (11:51)
[2023-09-29] MEDS: LORazepam 0.5 MG TABLET PO (11:52)
[2023-09-29] MEDS: 0.9 % Sodium Chloride 1,000 ML 100 ML IVCONT (11:52)
[2023-09-29] MEDS: Escitalopram Oxalate 20 MG TABLET PO (11:52)
== END 2023-09-29 12:29 | disposition home health service (06) | DRG 84 ==
LOC: HO.ED 09-29 00:28 → HO.EDOVER 09-29 01:09 → HO.IMC 09-29 11:12
PROVIDERS: Admitting Provider Student in an Organized Health Care Education/Training Program; Emergency Provider Internal Medicine; Visit Provider Physician Assistant
DX: S06.5XAA Traumatic subdural hemorrhage with loss of consciousness status unknown, initial encounter (principal); S01.01XA Laceration without foreign body of scalp, initial encounter; G20.C Parkinsonism, unspecified; W06.XXXA Fall from bed, initial encounter; F02.80 Dementia in other diseases classified elsewhere, unspecified severity, without behavioral disturbance, psychotic disturbance, mood disturbance, and anxiety; Z66 Do not resuscitate; K21.9 Gastro-esophageal reflux disease without esophagitis; E78.2 Mixed hyperlipidemia; Z79.899 Other long term (current) drug therapy
CPT/HCPCS: 36415; 70450; 72125; 80048; 80053; 81001; 84484; 85025; 93005; 99285; J2405

== ENCOUNTER → 2023-09-28 20:33 | Outpatient (BNV) | payer MEDICARE, SELFPAY | PROVIDERS: Admitting Provider Student in an Organized Health Care Education/Training Program; Emergency Provider Internal Medicine; Visit Provider Internal Medicine Cardiovascular Disease | DX: R94.31 Abnormal electrocardiogram [ECG] [EKG] (principal) | CPT/HCPCS: 93010 ==

== ENCOUNTER → 2023-09-28 20:55 | Outpatient (BNV) | payer MEDICARE, SELFPAY | PROVIDERS: Emergency Provider Internal Medicine; Visit Provider Student in an Organized Health Care Education/Training Program | DX: S06.5XAA Traumatic subdural hemorrhage with loss of consciousness status unknown, initial encounter (principal) | CPT/HCPCS: 99222; 99239; 99499 ==

== ENCOUNTER → 2023-09-29 00:53 | Outpatient (BNV) | payer MEDICARE, SELFPAY | PROVIDERS: Admitting Provider Student in an Organized Health Care Education/Training Program; Emergency Provider Internal Medicine; Visit Provider Psychiatry & Neurology Neurology | DX: I62.01 Nontraumatic acute subdural hemorrhage (principal); R29.6 Repeated falls | CPT/HCPCS: 99222 ==

== ENCOUNTER 2023-12-17 15:56 | Emergency (ER) | payer MEDICARE, SELFPAY ==
--- NOTE | ~2023-12-17 | CT_ITS ---
EXAMINATION: CT head/brain wo IV con, CT cervical spine wo IV con INDICATION INFORMATION: Reason for Exam fall, 09/28/23 R subdural COMPARISON: CT head and cervical spine without contrast 09/28/2023 which central portion TECHNIQUE: Separate noncontrast CT examinations of the head and cervical spine were performed. Coronal and sagittal images were created for each examination at the technologist workstation. This CT examination was performed using dose optimization techniques as appropriate, variously including the following: *Automated exposure control *Adjustment of mA and/or kV according to patient size (this includes techniques or standardized protocols for targeted exams where dose is matched to indication/reason for exam; i.e. extremities or head) *Use of iterative reconstruction technique DLP: 1076 mGy-cm FINDINGS: Head: No acute osseous or soft tissue abnormality. The mastoid air cells and visualized portions of the paranasal sinuses are well aerated. There is no evidence of acute intracranial hemorrhage or territorial infarction. No abnormal mass effect or midline shift is seen. Mustafa to white matter differentiation is well preserved. There is a thin hypodense chronic right superior frontal convexity subdural hematoma which appears stable in size compared to CT from 09/29/2023 measuring up to 6 mm in thickness. No hydrocephalus. No significant volume loss. Patchy periventricular and deep white matter hypoattenuation is consistent with mild small vessel ischemic changes. Cervical spine: There is a subluxed right C5-C6 facet joint with comminuted and anteriorly displaced fracture involving the right C6 superior articular process complete characterization of the fracture is somewhat limited due to patient head positioning/rightward head tilt resulting in obliquity of imaging planes but there is suspected extension of fracture involving the C6 transverse process and right foramen transversarium. There is new posttraumatic anterolisthesis of C5 on C6 measuring up to 4 mm. No other definite acute cervical spine fracture is identified. The vertebral body heights are maintained. Moderate multilevel cervical spondylosis. Visualized portions of the lung apices are unremarkable. The thyroid gland is unremarkable. CT/CT cervical spine wo IV con IMPRESSION: 1. No acute intracranial abnormality including hemorrhage, mass effect, hydrocephalus, or acute territorial edematous infarction. 2. Thin chronic appearing right superior frontal convexity subdural hematoma appears stable compared to CT from 09/29/2023 measuring up to 6 mm in thickness. 3. There is an anteriorly subluxed right C5-C6 facet joint with comminuted and displaced fracture involving the right C6 superior articular process with suspected extension of fracture involving the right C6 transverse process and foramen transversarium. There is new posttraumatic anterolisthesis of C5 on C6 measuring up to 4 mm. Recommend further evaluation with CTA of the neck to exclude vertebral artery injury. Above impression was communicated to Dr. Norton on 12/17/2023 6:51 PM
--- NOTE | ~2023-12-17 | XR_ITS ---
EXAMINATION: XR SHOULDER, RIGHT CLINICAL INFORMATION: Fall, pain. COMPARISON: None available. TECHNIQUE: Three views of the right shoulder. FINDINGS: Mild to moderate acromioclavicular osteoarthritis. Glenohumeral joint is well preserved. No fracture. Alignment is anatomic. Soft tissues are normal with no abnormal calcifications. XR/XR shoulder RT min 2V IMPRESSION: 1. No acute fractures or malalignment. 2. Mild to moderate acromioclavicular osteoarthritis.
--- NOTE | ~2023-12-17 | CT_ITS ---
EXAMINATION: CT CERVICAL SPINE WITH CONTRAST CLINICAL INFORMATION: Fracture, rule out vascular injury COMPARISON: Same day noncontrast CT cervical spine. TECHNIQUE: Postcontrast CT of the cervical spine was performed following administration of 70 mL Omnipaque [address] examination was performed using dose optimization techniques as appropriate, variously including the following: *Automated exposure control *Adjustment of mA and/or kV according to patient size (this includes techniques or standardized protocols for targeted exams where dose is matched to indication/reason for exam; i.e. extremities or head) *Use of iterative reconstruction technique DLP: 335 mGy-cm FINDINGS: Please note that this postcontrast CT of the neck is not ideally timed for evaluation of the arterial structures in the neck. However, there is evidence of posttraumatic injury of the right vertebral artery which demonstrates preserved contrast filling of the origin or proximal V1 segment, on absent contrast filling of the distal V1 and proximal V2 segment with vessel reconstitution beginning at the level of C4-C5 where the vessel demonstrates a central filling defect extending to C3-C4,, likely reflecting intraluminal thrombus, and with normal contrast filling of the remainder of the cervical vertebral artery. Redemonstration of posttraumatic anterolisthesis of C5 on C6 related to right C5-C6 facet dislocation and displaced comminuted fracture of the right superior articular process of C6 extending into the transverse process and foramen transversarium. CT/CT cervical spine w IV con IMPRESSION: 1. This postcontrast CT of the neck is not ideally timed for evaluation of the arterial structures in the neck (CTA of the neck would be more accurate). However, there is evidence of posttraumatic injury of the right vertebral artery which demonstrates occlusion of the distal V1 and proximal V2 segment with vessel reconstitution beginning at the level of C4-C5 where the vessel demonstrates a central filling defect extending to C3-C4, likely reflecting intraluminal thrombus, and preserved contrast filling of the remainder of the cervical vertebral artery. 2. Redemonstration of posttraumatic anterolisthesis of C5 on C6 related to right C5-C6 facet fracture and dislocation as described on preceding noncontrast CT.
[2023-12-17 16:12] VITALS: BP 110/78; PULSE 85; O2SAT 98
[2023-12-17 16:14] VITALS: BP 142/94; PULSE 87; RESP 16; TEMP 36.4; O2SAT 100; BMI 15.9
--- NOTE | 2023-12-17 16:33 | ED_ITS ---
HPI - Fall General Chief Complaint: Fall Stated Complaint: FALL DOWN 6 STEPS + HEAD STRIKE Time Seen by Provider: 12/17/23 16:00 Source: patient and EMS Limitations: other ( poor historian) History of Present Illness ED Provider: Dr. María Norton HPI Narrative: patient comes to the emergency room complaining of a fall. Patient comes via ambulance, patient is on hospice care at home. Seems that patient had unwitnessed fall down 6 stairs. When EMS arrived, EMS states that the patient was able to ambulate to the chair. Patient is not on any blood thinners. Unknown loss of consciousness. Patient is a poor historian, does not remember much other than he fell. Patient denies any headache or neck pain. Patient states that he has right-sided shoulder pain. According to EMS, the family reported that the family is concerned about continuing care at home and they are looking for placement. Related Data Home Medications ?Medication ?Instructions ?Recorded ?Confirmed docusate sodium 100 mg capsule 100 mg PO TID 09/29/23 09/29/23 escitalopram oxalate 20 mg tablet 20 mg PO DAILY 09/29/23 09/29/23 glycerin (adult) 1 supp OR DAILY PRN Constipation 09/29/23 09/29/23 lactulose 10 gram/15 mL oral 10 g PO DAILY 09/29/23 09/29/23 solution megestrol 20 mg tablet 20 mg PO BID 09/29/23 09/29/23 omeprazole 20 mg capsule,delayed 20 mg PO DAILY@0630 09/29/23 09/29/23 release ondansetron 4 mg disintegrating 4 mg translingual Q12H PRN 09/29/23 09/29/23 tablet nausea/vomiting risperidone 0.25 mg tablet 0.25 mg PO DAILY PRN Agitation 09/29/23 09/29/23 sennosides 8.6 mg tablet (senna) 8.6 mg PO BID 09/29/23 09/29/23 docusate sodium 100 mg tablet PO 12/17/23 (Stool Softener) escitalopram oxalate 20 mg tablet 20 mg PO DAILY 12/17/23 12/17/23 lorazepam 0.5 mg tablet mg PO 12/17/23 mirtazapine 15 mg tablet PO 12/17/23 omeprazole magnesium 20 mg 20 mg PO DAILY 12/17/23 12/17/23 tablet,delayed release Previous Rx's ?Medication ?Instructions ?Recorded lorazepam 0.5 mg tablet 0.5 mg PO TID@0800,1300,1700 #90 03/28/23 tabs Allergies Allergy/AdvReac Type Severity Reaction Status Date / Time No Known Allergies Allergy Verified 12/17/23 16:25 Review of Systems 2 Review of Systems: Constitutional : No Weight loss, No Fever, No Chills, No Night Sweats, No Fatigue, No Malaise ENT/Mouth : No Hearing loss, No Ear Pain, No Nasal Congestion, No Sinus Pain, No Hoarseness, No sore throat, No Rhinorrhea, No Swallowing Difficulty Eyes: No Eye Pain, No Swelling, No Redness, No Foreign Body, No Discharge, No Vision Changes Cardiovascular : No Chest Pain, No SOB, No Dyspnea on Exertion, No Orthopnea, No Edema, No Palpitations Respiratory : No Cough, No Sputum, No Wheezing, No Smoke Exposure, No Dyspnea Gastrointestinal : No Nausea, No Vomiting, No Diarrhea, No Constipation, No abdominal Pain, No Hematochezia, No Melena Genitourinary : no irregular bleeding, No Dysuria, No Urinary Frequency, No Hematuria, No Urinary Incontinence, No Urgency, No Flank Pain, No Urinary Flow Changes, No Hesitancy Musculoskeletal : Complaining of right shoulder pain, No Myalgias, No Joint Swelling Skin : No Skin Lesions, No rash Neuro : No Weakness, No Numbness, No Paresthesias, No Loss of Consciousness, No Dizziness, No Headache Psych : No Anxiety/Panic, No Depression, No SI/HI/AH/VH, No Social Issues, Heme/Lymph: No Bruising, No Bleeding,No Lymphadenopathy Endocrine : No Polyuria, No Polydipsia, No Temperature Intolerance [facility] Past Medical History Medical History Mild cognitive disorder MARTY (generalized anxiety disorder) MDD (major depressive disorder), single episode with atypical features Parkinsonism Abdominal pain, epigastric Surgical History Hx of colonoscopy Hx of tonsillectomy Social History Social History Household Members: Family Housing: House Do you presently have visiting nurse or other home services: No Unable to assess alcohol history related to: Unable to respond Alcohol intake: never Patient Tobacco Use Status: Never used Tobacco Use of substances other than those prescribed or required for medical reasons: No Advance Directives: Yes Advance Directives on File: Yes Advance Directives Date on File: 03/12/23 Do you have a plan to hurt others: No Plan Sexual orientation: Straight/Heterosexual Physical Exam 2 Vital Signs: Vital Signs: Last Vital Signs Temp 98.3 F 12/18/23 02:01 Pulse 80 12/18/23 02:01 Resp 20 12/18/23 02:01 BP 151/91 H 12/18/23 02:01 Pulse Ox 99 12/18/23 02:01 O2 Del Method Room Air 12/18/23 02:01 BMI result Body Mass Index 15.9 Const: Other: Appearance: Alert. Oriented X3. No acute distress. Eyes: Pupils equal, round and reactive to light. ENT: Pharynx normal. Neck: patient took his cervical collar off. Normal inspection. Neck supple. No lymph nodes noted. No crepitus . No C-spine tenderness , but there is pain on the lateral aspect of the neck, no palpable step-offs. CVS: Normal heart rate and rhythm. Pulses normal. Normal S1 and S2 Respiratory: No respiratory distress. Breath sounds normal. No Wheezing. No rales Abdomen: Soft and nontender. No rigidity. No distention. Skin: Skin warm and dry. Normal skin color. Normal skin turgor. Extremities: No lower extremity edema. No Lacerations. No Rash. Pain to the right side of the foot over, no clavicular pain to palpation. No obvious deformity. Neuro: Oriented X 3. No motor deficit. No sensory deficit. Moving all extremities. No slurred speech. CN 2 through 12 grossly intact Psych: calm, cooperative, normal affect Course Course Course Narrative: - Patient's urinalysis and images pending - reviewing patient's past medical records, on September of 2023, patient had a fall and had a small right subdural hematoma. - At this time, patient is stable, asymptomatic other than the right shoulder pain. Patient declined pain medication - as mentioned above, patient's family requested case management for patient placement Medications Administered Discontinued Medications Generic Name Dose Route Start Last Admin Trade Name Freq PRN Reason Stop Dose Admin Iohexol 100 ml 12/17/23 20:43 12/17/23 20:44 Iohexol 350 Mg/Ml 100 Ml Infus..Btl IV 12/17/23 20:44 70 ml ONCE ONE Administration Lorazepam 1 mg 12/17/23 22:51 12/17/23 23:08 Lorazepam 1 Mg Tablet PO 12/17/23 22:52 1 mg ONCE ONE Administration Medical Decision Making Medical Decision Making [facility] Narrative: - my interpretation of x-ray of the shoulder, normal alignment, no obvious fracture - my interpretation of CT scan of the head, there is a chronic subdural hematoma. Radiology report pending. Patient has no neurological deficits - my interpretation of urinalysis: No UTI - CT scan of the neck shows subluxation of C5-C6 face at joint and comminuted and anteriorly displaced fracture involving the right C6 superior articular process - I called [facility] transfer line For a neurosurgery consult. However, it was recommended to get in touch with the patient's family 1st to determine if they want to have anything done for the patient given that he is in home hospice. We already have tried getting in touch with the patient's healthcare proxy who is his daughter. - After multiple phone calls, we were able to get in touch with the patient's daughter, who decided to keep the patient as DNR DNI, to keep him as comfortable as possible, no Neurosurgery or any kind of surgical intervention. Patient will be placed on an [place] collar and we will keep him in the emergency room. Case management to see him in the morning. - Patient's daughter is requesting that we seek placement for her father. Patient's is currently undergoing cancer treatment and at this time it is very hard for the patient's children to take care of both sick parents - For comfort, patient was given p.o. oxycodone Differential Diagnosis Differential Diagnoses: The differential diagnosis associated with the presentation includes ( cervical spine fracture, contusion, spondylolisthesis) Admission/Observation Consideration of admission/observation: Escalation of care including admission/observation considered Consult Healthcare Provider Management of the patient was discussed with: Automatic Chief Lab Data [facility] Lab Attestation statement: I reviewed the patient's lab results. 12/17/23 19:03 12/17/23 19:03 Labs: Lab Results 12/17/23 12/17/23 Range/Units 16:44 19:03 WBC 13.9 H (4.8-10.8) X10*3/uL RBC 4.07 L (4.60-5.80) X10*6/uL Hgb 13.0 L (14.0-18.0) g/dl Hct 38.4 L (42.0-52.0) % MCV 94.3 (80.0-98.0) fL MCH 31.9 (27.0-33.0) pg MCHC 33.9 (31.0-36.0) g/dl RDW 12.8 (11.0-16.0) % Plt Count 239 (160-400) X10*3/uL MPV 8.7 L (9.4-12.4) fL Immature Gran % (Auto) 0.6 H (0.0-0.4) % Neut % (Auto) 88.8 H (45-73) % Lymph % (Auto) 4.6 L (20-40) % [place] % (Auto) 5.8 (2-11) % Eos % (Auto) 0.0 (0-4) % Baso % (Auto) 0.2 (0-2) % Lymph # (Auto) 0.6 L (1.2-4.9) X10*3/uL [place] # (Auto) 0.8 (0.1-1.2) X10*3/uL Eos # (Auto) 0.0 (0.0-0.4) X10*3/uL Baso # (Auto) 0.0 (0.0-0.2) X10*3/uL Abs Immat Gran (auto) 0.08 H (0.00-0.03) X10*3/uL Absolute Neuts (auto) 12.3 H (2.0-8.3) x10*3/uL Absolute Nucleated RBC 0.000 (0.0-0.012) X10*3/uL Nucleated RBC % (auto) 0.0 (0.0-0.2) /100WBC Sodium 139 (135-145) mmol/L Potassium 4.1 (3.3-5.1) mmol/L Chloride 110 H (96-108) mmol/L Carbon Dioxide 21 L (22-29) mmol/L Anion Gap 12 (12-20) BUN 21 H (9-16) mg/dL Creatinine 0.86 (0.5-1.4) mg/dL Estim Creat Clear Calc 53.6 Estimated GFR > 60 Random Glucose 116 H (60-115) mg/dL Calcium 8.8 (8.4-10.2) mg/dL Total Bilirubin 0.4 (0.0-1.0) mg/dL Direct Bilirubin 0.1 (0.0-0.5) mg/dL AST 39 H (5-37) U/L ALT 20 (0-40) U/L Alkaline Phosphatase 52 (39-117) U/L Total Protein 6.3 L (6.5-8.0) g/dL Albumin 3.9 (3.5-5.0) g/dL Urine Color Dark Yellow Urine Appearance Cloudy Urine pH 5.5 (5.0-9.0) Ur Specific [place] >= 1.030 H (1.005-1.025) Urine Protein 30 (1+) H (Neg-Trace) mg/dL Urine Glucose (UA) Negative (Negative) mg/dL Urine Ketones Trace (Negative) mg/dL Urine Blood Negative (Negative) Urine Nitrite Negative (Negative) Ur Leukocyte Esterase Negative (Negative) Urine RBC 0-2 (0-2) /HPF Urine WBC 0-5 (0-5) /HPF Ur Squamous Epith Cells 3-5 (0-2) /HPF Calcium Oxalate Crystal Present Urine Bacteria None Seen (None Seen) Hyaline Casts 11-20 (0-2) /LPF Independent Interpretation I performed an independent interpretation of an: Plain X-Ray and CT Scan Radiology Impression Discussion of test interpretation with radiology: I have reviewed the radiologist's reading. Radiologist Impression: Mild to moderate acromioclavicular osteoarthritis. Glenohumeral joint is well preserved. No fracture. Alignment is anatomic. Soft tissues are normal with no abnormal calcifications. XR/XR shoulder RT min 2V IMPRESSION: 1. No acute fractures or malalignment. 2. Mild to moderate acromioclavicular osteoarthritis. Independent Historian Clinical information obtained from an independent historian. History obtained from or confirmed by: EMS and Other ( patient's daughter) Critical Care Time Critical Care Time Critical Care Time: Yes Total Critical Care Time: 75 Attestation: I have personally provided critical care time. Time includes review of lab data, radiology results, discussion with consultants, and monitoring for potential decompensation. Intervention performed as documented. Discharge Plan Discharge Clinical Impression: Fall, Closed subluxation of spine at C5-C6 level, Cervical transverse process fracture Patient Disposition: Still a Patient Prescriptions: No Action lactulose 10 gram/15 mL Solution 10 g PO DAILY ondansetron 4 mg tablet,disintegrating 4 mg translingual Q12H PRN (Reason: nausea/vomiting) megestrol 20 mg Tablet 20 mg PO BID escitalopram oxalate 20 mg Tablet 20 mg PO DAILY risperidone 0.25 mg Tablet 0.25 mg PO DAILY PRN (Reason: Agitation) docusate sodium 100 mg Capsule 100 mg PO TID sennosides [senna] 8.6 mg Tablet 8.6 mg PO BID omeprazole 20 mg capsule,delayed release(DR/EC) 20 mg PO DAILY@0630 glycerin (adult) Suppository 1 supp OR DAILY PRN (Reason: Constipation) lorazepam 0.5 mg tablet PO mirtazapine 15 mg tablet PO docusate sodium [Stool Softener] 100 mg tablet PO escitalopram oxalate 20 mg tablet 20 mg PO DAILY omeprazole magnesium 20 mg tablet,delayed release (DR/EC) 20 mg PO DAILY lorazepam 0.5 mg Tablet 0.5 mg PO TID@0800,1300,1700 Qty: 90 0RF Print Language: Dutch
[2023-12-17 16:43] VITALS: BP 147/88; PULSE 110; RESP 16; O2SAT 98
[2023-12-17 16:53] LABS: Appearance Urine Cloudy; Color Urine Dark Yellow; Glucose Urine UA Negative (Negative); Leukocyte Esterase Urine Negative (Negative); Nitrite Urine Negative (Negative); PH 5.5 (5.0-9.0); Specific Gravity - Urine >= 1.030 (1.005-1.025); UMIC TRIGGER UACC YES; Urine Blood Negative (Negative); Urine Ketones Trace mg/dL (Negative); Urine Protein 30 (1+) mg/dL (Neg-Trace)
[2023-12-17 17:02] LABS: Bacteria Urine None Seen (None Seen); Calcium Oxalate Crystals Urine Present; RBC Urine 0-2 /HPF (0-2); WBC Urine 0-5 /HPF (0-5)
--- OUTSIDE RECORDS SUMMARY | 2023-12-17 17:39 | XMS_ITS | Continuity of Care Document ---
Author Organization [facility] Neurology Address [address], [address], [address] [place] [id number] Care Team Providers Care Training Program Developer Name Role Phone Amanda MCCARTHY, Clarence Mckeon Primary Care Physician [phone] [place] [facility] [place](s): 03/28/23 - 04/27/23 [facility] Neurology [address], [address], [address] [place] [id number] Attending Physician: Admtr, [id number] Admitting Physician: Admtr, Ar8 Referring Physician: Admtr, Ar8 Patient Care team information Care Team Personnel Name: Clarence Patel MD, I Position: [facility] Member Role: PCP Address: Address: [address] [place] [id number] Care Team Related Persons Name: JENNIFER ALICE Address: home [address] [facility] [place] [address]
--- NOTE | 2023-12-17 18:50 | PC.NURSE ---
[place] cath applied, patient changed up and on clean linens. patient changed into hospital attire for comfort. patient is calm and cooperative, pleasantly confused and redirectable.
[2023-12-17 19:05] VITALS: BP 148/88; PULSE 80; RESP 20; O2SAT 100
--- NOTE | 2023-12-17 19:05 | PC.NURSE ---
patient c collar put back on by this RN. IV placed in the left FA #[id number]. labs drawn and sent
[2023-12-17 19:14] LABS: MANUAL DIFF FLAG NO
[2023-12-17 19:15] LABS: Basophils Percent Auto 0.2 % (0-2); Hematocrit 38.4 % (42.0-52.0); Imm Gran Abs Auto 0.08 X10*3/uL (0.00-0.03); Imm Gran Pct Auto 0.6 % (0.0-0.4); Lymphocytes Absolute Auto 0.6 X10*3/uL (1.2-4.9); Lymphocytes Percent Auto 4.6 % (20-40); Mean Corpuscular HGB Conc 33.9 g/dl (31.0-36.0); Mean Corpuscular Hemoglobin 31.9 pg (27.0-33.0); Mean Corpuscular Volume 94.3 fL (80.0-98.0); Mean Platelet Volume 8.7 fL (9.4-12.4); Monocytes Absolute Auto 0.8 X10*3/uL (0.1-1.2); Monocytes Percent Auto 5.8 % (2-11); Neutrophils Absolute Auto 12.3 x10*3/uL (2.0-8.3); Neutrophils Percent Auto 88.8 % (45-73); Platelet Count 239 X10*3/uL (160-400); Red Blood Count 4.07 X10*6/uL (4.60-5.80); Red Cell Distribution Width 12.8 % (11.0-16.0); White Blood Count 13.9 X10*3/uL (4.8-10.8)
[2023-12-17 19:36] LABS: Alanine Aminotransferase 20 U/L (0-40); Albumin Level 3.9 g/dL (3.5-5.0); Alkaline Phosphatase 52 U/L (39-117); Anion Gap 12 (12-20); Aspartate Amino Transferase 39 U/L (5-37); Bilirubin Direct 0.1 mg/dL (0.0-0.5); Bilirubin Total 0.4 mg/dL (0.0-1.0); Blood Urea Nitrogen 21 mg/dL (9-16); Calcium 8.8 mg/dL (8.4-10.2); Carbon Dioxide 21 mmol/L (22-29); Chloride 110 mmol/L (96-108); Creatinine Clr Calc Pharmacy 53.6; Estimated Glomerular Filt Rate > 60; Glucose Random 116 mg/dL (60-115); Potassium 4.1 mmol/L (3.3-5.1); Sodium 139 mmol/L (135-145); Total Protein 6.3 g/dL (6.5-8.0)
--- NOTE | 2023-12-17 20:41 | PC.NURSE ---
pt in CT
[2023-12-17] MEDS: iohexoL 350 MG/ML 100 ML INFUS..BTL IV (20:44)
[2023-12-17 22:44] VITALS: BP 130/83; PULSE 81; RESP 16; TEMP 36.9; O2SAT 98
[2023-12-17] MEDS: LORazepam 1 MG TABLET PO (23:08)
--- NOTE | 2023-12-18 01:55 | PC.NURSE ---
aspen collar replaced C collar. R hand re wrapped, new bandaid to L shoulder. new [place] cath placed, came off when pt attempted to get out of bed
[2023-12-18 02:01] VITALS: BP 151/91; PULSE 80; RESP 20; TEMP 36.8; O2SAT 99
[2023-12-18] MEDS: oxyCODONE HCl Immed Release 5 MG TABLET PO ×2 (02:29→13:47)
--- NOTE | 2023-12-18 03:36 | PC.NURSE ---
med rec completed
--- NOTE | 2023-12-18 04:13 | PC.NURSE ---
pt sitting up in bed, used call [facility] to ask to use bathroom to urinate. reminded pt he has a [place] cath on. pt relaxing back in bed
[2023-12-18 06:00] VITALS: BP 146/92; PULSE 79; RESP 16; TEMP 36.9; O2SAT 99
[2023-12-18 07:04] VITALS: BP 147/89; PULSE 82; RESP 18; O2SAT 99
[2023-12-18] MEDS: Morphine Sulfate 4 MG/ML CARTRIDGE IVPUSH (07:04)
[2023-12-18 08:03] VITALS: BP 147/59; PULSE 82; RESP 12; O2SAT 98
--- NOTE | 2023-12-18 09:09 | MHC.CM.ED ---
Addendum entered by Silvia Seymour 12/18/23 10:53: [facility] is able to offer a bed on their STR unit and will transition to LTC care for respite when one is available. Met with patient and daughters Kimani and Grazyna. All are agreeable. Waiting for transport time from [facility]. [facility] made aware. Original Note: Received case management consult from Dr Norton overnight. Patient came to the ER after a fall. Received notification from [facility] that patient is active with their agency and they are trying to find respite placement at [facility]. Continue to monitor for d/c needs.
[2023-12-18] MEDS: ondansetron HCL 4 MG/2 ML VIAL IVPUSH (09:18)
--- NOTE | 2023-12-18 11:14 | MHC.CM.ED ---
[facility] booked for 3pm. Med nec with chart. Patient, daughters, Latrice WIGGINS and Carleen ALBARADO aware. Continue to monitor for d/c needs.
[2023-12-18] MEDS: LORazepam 0.5 MG TABLET PO (13:47)
--- NOTE | 2023-12-18 15:07 | PC.NURSE ---
attempted to call Rikki arita from [facility]. no answer from facility.
--- NOTE | 2023-12-18 15:31 | PC.NURSE ---
Patient on ED stretcher, resting, aspen collar in place. Patient changed into clean paul with fresh brief by Lai and Tutu ED Techs. Plan to go to [place]. Multiple attempts made to call nursing report with no answer.
[2023-12-18 16:13] VITALS: BP 134/84; PULSE 88; RESP 17; TEMP 36.8; O2SAT 98
== END 2023-12-18 16:14 ==
PROVIDERS: Emergency Medicine; Emergency Provider Emergency Medicine; PCP Internal Medicine
DX: S12.400A Unspecified displaced fracture of fifth cervical vertebra, initial encounter for closed fracture (principal); S13.160A Subluxation of C5/C6 cervical vertebrae, initial encounter; R51.9 Headache, unspecified; M54.2 Cervicalgia; M25.511 Pain in right shoulder; W10.8XXA Fall (on) (from) other stairs and steps, initial encounter; Y93.89 Activity, other specified; Y92.89 Other specified places as the place of occurrence of the external cause; Y99.8 Other external cause status; Z79.899 Other long term (current) drug therapy
CPT/HCPCS: 36415; 70450; 72125; 72126; 72127; 73030; 80048; 80076; 81001; 81003; 85025; 96374; 96375; 99284; 99285; J2270; J2405; Q9967

== ENCOUNTER 2023-12-18 21:32 | Emergency (ER) | payer OTHER, SELFPAY ==
[2023-12-18 21:35] VITALS: BP 160/80; BP 166/96; PULSE 74; PULSE 81; RESP 12; TEMP 36.7; O2SAT 98; O2SAT 99; BMI 16.6
[2023-12-18 21:47] VITALS: BP 166/96; PULSE 81; RESP 12; TEMP 36.7; O2SAT 99
--- NOTE | 2023-12-18 22:20 | MHC.CM.ED ---
Pt was discharged to [place] at 1600 for hospice respite. Pt was active with [facility]. Pt has fx C5-6. Per facility record, patient was returned for ineffective pain management. Daughter upset that patient did not have morphine ordered. Pt is agitated, trying to climb out of bed. Trying to take off collar. Awaiting MD evaluation. No CM consult at this time.
--- NOTE | 2023-12-18 22:22 | ED_ITS ---
HPI - General Adult General Chief complaint: General Medical Stated complaint: NECK PAIN Time Seen by Provider: 12/18/23 22:20 Source: EMS Mode of arrival: EMS Limitations: other History of Present Illness ED Provider: Dr. María Norton HPI narrative: Patient comes to the emergency room via ambulance from a nursing home facility. Earlier today, patient was discharged from the ER. However, patient was sent to the nursing home facility without a prescription for narcotics to help with the neck pain that he has, patient was yesterday diagnosed with a neck fracture. Otherwise there are no new complaints. Related Data Home Medications ?Medication ?Instructions ?Recorded ?Confirmed docusate sodium 100 mg capsule 100 mg PO TID 09/29/23 12/18/23 glycerin (adult) 1 supp WI DAILY PRN Constipation 09/29/23 09/29/23 lactulose 10 gram/15 mL oral 10 g PO DAILY 09/29/23 09/29/23 solution megestrol 20 mg tablet 20 mg PO BID 09/29/23 12/18/23 omeprazole 20 mg capsule,delayed 20 mg PO DAILY@0630 09/29/23 12/18/23 release ondansetron 4 mg disintegrating 4 mg translingual Q12H PRN 09/29/23 12/18/23 tablet nausea/vomiting risperidone 0.25 mg tablet 0.25 mg PO DAILY PRN Agitation 09/29/23 12/18/23 sennosides 8.6 mg tablet (senna) 8.6 mg PO BID 09/29/23 12/18/23 escitalopram oxalate 20 mg tablet 20 mg PO DAILY 12/17/23 12/18/23 melatonin 5 mg tablet 5 mg PO BEDTIME PRN Insomnia 12/18/23 12/18/23 mirtazapine 15 mg tablet 22.5 - 30 mg PO BEDTIME PRN 12/18/23 12/18/23 insomnia Previous Rx's ?Medication ?Instructions ?Recorded lorazepam 0.5 mg tablet 0.5 mg PO TID@0800,1300,1700 #90 03/28/23 tabs lorazepam 0.5 mg tablet See Rx Instructions .Route 12/18/23 .COMPLEX PRN anxiety #15 tabs morphine 10 mg capsule,extended 10 mg PO BID #14 caps 12/18/23 release pellets oxycodone 5 mg tablet 5 mg PO Q8H PRN severe pain (scale 12/18/23 score 7-10) #9 tabs Allergies Allergy/AdvReac Type Severity Reaction Status Date / Time No Known Allergies Allergy Verified 12/18/23 21:42 Review of Systems Review of Systems: Yes Unobtainable due to mental condition PMFSH Past Medical History Medical History Mild cognitive disorder MARTY (generalized anxiety disorder) MDD (major depressive disorder), single episode with atypical features Parkinsonism Abdominal pain, epigastric Surgical History Hx of colonoscopy Hx of tonsillectomy Social History Social History Household Members: Family Housing: House Do you presently have visiting nurse or other home services: No Unable to assess alcohol history related to: Unable to respond Alcohol intake: never Patient Tobacco Use Status: Never used Tobacco Smoked in Last 30 Days: No Use of substances other than those prescribed or required for medical reasons: No Advance Directives Date on File: 03/12/23 Do you have a plan to hurt others: No Plan Sexual orientation: Straight/Heterosexual Physical Exam ED Vital Signs: Vital Signs - 24 hr 12/18/23 21:35 12/18/23 21:47 Temperature 98.1 F 98.1 F Pulse Rate 81 81 Respiratory Rate 12 12 Blood Pressure 166/96 H 166/96 H Pulse Oximetry 99 99 Oxygen Delivery Method Room Air Room Air BMI result Body Mass Index 16.6 Const Other: Appearance: Alert. Seems uncomfortable Eyes: Pupils equal, round and reactive to light. ENT: Pharynx normal. Neck: On an [place] collar CVS: Normal heart rate and rhythm. Pulses normal. Normal S1 and S2 Respiratory: No respiratory distress. Breath sounds normal. No Wheezing. No rales Abdomen: Soft and nontender. No rigidity. No distention. Skin: Skin warm and dry. Normal skin color. Normal skin turgor. Extremities: No lower extremity edema. No Lacerations. No Rash Neuro: Moving all extremities, unable to participating cranial nerve assessment Psych: Slightly agitated Medications Administered Discontinued Medications Generic Name Dose Route Start Last Admin Trade Name Freq PRN Reason Stop Dose Admin Oxycodone HCl 5 mg 12/18/23 22:21 12/18/23 22:30 Oxycodone Hcl Immed Release 5 Mg Tablet PO 12/18/23 22:22 Not Given ONCE ONE Medical Decision Making Medical Decision Making [facility] Narrative: Patient offered p.o. medications. Patient through his water at the patient's nurse and through the pill to the floor. -patient was given IM morphine 1 mg and Zyprexa 5 mg IM -patient has no new complaints, patient will be returning to his nursing home facility with a prescription Discharge Plan Discharge Clinical Impression: Prescription medication started, Cervical spine fracture Patient Disposition: er SNF Instructions: Pain Management in Older Adults (DC), Narcotic Safety (ED) Additional Instructions: Please follow-up with your primary care physician tomorrow. If you have any worsening or new symptoms, please return to the emergency room or call 911 Prescriptions: New morphine 10 mg capsule,extend.release pellets 10 mg PO BID Qty: 14 0RF Rx Instructions: Partial Fill upon patient request. No Action lactulose 10 gram/15 mL Solution 10 g PO DAILY ondansetron 4 mg tablet,disintegrating 4 mg translingual Q12H PRN (Reason: nausea/vomiting) megestrol 20 mg Tablet 20 mg PO BID risperidone 0.25 mg Tablet 0.25 mg PO DAILY PRN (Reason: Agitation) docusate sodium 100 mg Capsule 100 mg PO TID sennosides [senna] 8.6 mg Tablet 8.6 mg PO BID omeprazole 20 mg capsule,delayed release(DR/EC) 20 mg PO DAILY@0630 glycerin (adult) Suppository 1 supp WI DAILY PRN (Reason: Constipation) escitalopram oxalate 20 mg tablet 20 mg PO DAILY mirtazapine 15 mg tablet 22.5 - 30 mg PO BEDTIME PRN (Reason: insomnia) melatonin 5 mg Tablet 5 mg PO BEDTIME PRN (Reason: Insomnia) lorazepam 0.5 mg tablet See Rx Instructions .ROUTE .COMPLEX PRN (Reason: anxiety) Qty: 15 0RF Rx Instructions: 1 to 2 tabs (o.5mg-1mg) every 4 hours as needed for anxiety oxycodone 5 mg tablet 5 mg PO Q8H PRN (Reason: severe pain (scale score 7-10)) Qty: 9 0RF Rx Instructions: Partial Fill upon patient request. lorazepam 0.5 mg Tablet 0.5 mg PO TID@0800,1300,1700 Qty: 90 0RF Print Language: Syriac
[2023-12-18] MEDS: OLANZapine 10 MG VIAL 5 MG IM (23:00)
[2023-12-18] MEDS: Morphine Sulfate 2 MG/ML CARTRIDGE 1 MG IM (23:00)
[2023-12-18 23:15] VITALS: BP 166/96; PULSE 81; RESP 12; TEMP 36.7; O2SAT 98
--- NOTE | 2023-12-18 23:21 | PC.NURSE ---
Called [facility] for this patient to give warm handover. SPoke with Isis WIGGINS
--- NOTE | 2023-12-18 23:28 | PC.NURSE ---
Called daughter Sharon and spoke with her letting her know that her dad Clinton Vegas was sent back to [place].
== END 2023-12-18 23:30 | disposition skilled nursing facility (03) ==
LOC: HO.ED 23:20
PROVIDERS: Emergency Provider Emergency Medicine; PCP Emergency Medicine
DX: M54.2 Cervicalgia (principal); S12.9XXD Fracture of neck, unspecified, subsequent encounter; W19.XXXD Unspecified fall, subsequent encounter; G20.C Parkinsonism, unspecified; Z79.899 Other long term (current) drug therapy
CPT/HCPCS: 96372; 99284; J2270; J2359

== ENCOUNTER 2023-12-19 15:34 | Emergency (ER) | payer OTHER, SELFPAY ==
[2023-12-19 15:43] VITALS: BP 110/70; BP 121/80; PULSE 85; PULSE 90; RESP 18; TEMP 36.8; O2SAT 98; O2SAT 99; BMI 15.0
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
[2023-12-19 16:45] VITALS: BP 128/83; PULSE 85; RESP 16; TEMP 36.6; O2SAT 99
--- NOTE | 2023-12-19 16:46 | ECG_ITS ---
Test Reason : AMS Blood Pressure : / mmHG Vent. Rate : 078 BPM Atrial Rate : 078 BPM P-R Int : 118 ms QRS Dur : 082 ms QT Int : 408 ms P-R-T Axes : 096 -73 067 degrees QTc Int : 465 ms Poor data quality Normal sinus rhythm Left anterior fascicular block Cannot rule out Inferior infarct (masked by fascicular block?) , age undetermined Abnormal ECG When compared with ECG of 28-SEP-2023 20:33, Incomplete right bundle branch block is no longer Present Referred By: Milvia Sheets Electronically Signed By:TONY PINEDA
[2023-12-19 17:07] LABS: MANUAL DIFF FLAG NO
[2023-12-19 17:11] LABS: Basophils Percent Auto 0.2 % (0-2); Hematocrit 35.6 % (42.0-52.0); Hemoglobin 12.1 g/dl (14.0-18.0); Imm Gran Abs Auto 0.05 X10*3/uL (0.00-0.03); Imm Gran Pct Auto 0.6 % (0.0-0.4); Lymphocytes Absolute Auto 0.9 X10*3/uL (1.2-4.9); Lymphocytes Percent Auto 10.5 % (20-40); Mean Corpuscular Volume 94.2 fL (80.0-98.0); Mean Platelet Volume 8.7 fL (9.4-12.4); Monocytes Absolute Auto 0.8 X10*3/uL (0.1-1.2); Monocytes Percent Auto 8.5 % (2-11); Neutrophils Absolute Auto 7.1 x10*3/uL (2.0-8.3); Neutrophils Percent Auto 80.2 % (45-73); Platelet Count 218 X10*3/uL (160-400); Red Blood Count 3.78 X10*6/uL (4.60-5.80); Red Cell Distribution Width 12.7 % (11.0-16.0); White Blood Count 8.9 X10*3/uL (4.8-10.8)
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
[2023-12-19 17:26] LABS: Alanine Aminotransferase 21 U/L (0-40); Albumin Level 3.9 g/dL (3.5-5.0); Alkaline Phosphatase 50 U/L (39-117); Anion Gap 10 (12-20); Aspartate Amino Transferase 35 U/L (5-37); Bilirubin Direct 0.2 mg/dL (0.0-0.5); Bilirubin Total 0.6 mg/dL (0.0-1.0); Blood Urea Nitrogen 18 mg/dL (9-16); Calcium 8.9 mg/dL (8.4-10.2); Carbon Dioxide 26 mmol/L (22-29); Chloride 107 mmol/L (96-108); Creatinine Clr Calc Pharmacy 60.5; Estimated Glomerular Filt Rate > 60; Glucose Random 102 mg/dL (60-115); Magnesium 2.2 mg/dL (1.6-2.6); Potassium 4.1 mmol/L (3.3-5.1); Sodium 139 mmol/L (135-145); Total Protein 6.3 g/dL (6.5-8.0)
[2023-12-19] MEDS: Morphine Sulfate Immed Release 15 MG TABLET PO (17:32)
[2023-12-19 17:34] LABS: Troponin-I High Sensitivity 3.4 ng/L (<3.5-35.0)
[2023-12-19 17:56] LABS: Ammonia 16 umol/L (13-55)
[2023-12-19 17:57] LABS: Influenza A PCR NEGATIVE (Negative); Influenza B PCR NEGATIVE (Negative); Resp Syncy Virus RNA Qual PCR NEGATIVE (Negative); SARS COV2 PCR INHOUSE NEGATIVE (Negative)
--- NOTE | 2023-12-19 18:32 | MHC.CM.ED ---
Per Deandra Gonzalez at Hospice, patient will stay at [facility] overnight with transport home for hospice on 12/19 at 1pm. No scripts are necessary at discharge per Deandra. Hospice has already spoken with patient's provider regarding necessary medications. Hospice will provide hospital bed either tonight or tomorrow morning. CM spoke with Kimani ([phone]) HCP/daughter who is in agreement with the plan of care. She is at the bedside. Pt is calm and cooperative at this time. BLS transport arranged with [facility] for 1 pm on 12/19. Med Nec and paperwork with community education coordinator. CM will follow for safe discharge plan.
[2023-12-19 19:27] VITALS: BP 118/76; PULSE 85; RESP 16; TEMP 36.6; O2SAT 98
--- NOTE | 2023-12-19 21:07 | PC.NURSE ---
PT NOW AWAKE REPORTING 8/10 PAIN. TROPONIN LAB DRAWN PER PROVIDER ORDER. PROVIDER AWARE OF PAIN LEVEL AWAITING FURTHER ORDERS AT THIS TIME. PT RESTING COMFORTABLY, CALL PELAEZ WITHIN REACH. VMT ON AT BEDSIDE.
[2023-12-19 21:29] LABS: Troponin-I High Sensitivity 3.5 ng/L (<3.5-35.0)
[2023-12-19] MEDS: Acetaminophen 325 MG TABLET 650 MG PO (21:44)
[2023-12-19] MEDS: oxyCODONE HCl Immed Release 5 MG TABLET PO (21:44)
[2023-12-19 22:04] LABS: Appearance Urine Clear; Color Urine Dark Yellow; Glucose Urine UA Negative (Negative); Leukocyte Esterase Urine Negative (Negative); Nitrite Urine Negative (Negative); PH 5.5 (5.0-9.0); Specific Gravity - Urine >= 1.030 (1.005-1.025); UMIC TRIGGER UACC YES; Urine Blood Negative (Negative); Urine Ketones 15 mg/dL (Negative); Urine Protein 30 (1+) mg/dL (Neg-Trace)
--- NOTE | 2023-12-19 22:15 | PC.NURSE ---
pt reporting 8/10 pain, per PA to administer prn per jul and reassess pain level. pt medicated per jul tolerated po intake. pt helped with urinal and ua sample sent to lab. pt placed in hospital bed for comfort, verbalizes comfortable and denies further needs at this time. call santacruz within reach. bed alarm on. vmt on. pt now resting comfortably in bed with eyes closed, resp even and unlabored.
[2023-12-19 22:18] LABS: Bacteria Urine None Seen (None Seen); Calcium Oxalate Crystals Urine Present; RBC Urine 0-2 /HPF (0-2); Squamous Epithelial Cell Urine 0-2 /HPF (0-2); WBC Urine 0-5 /HPF (0-5)
[2023-12-19 23:39] VITALS: BP 118/76; PULSE 89; RESP 16; O2SAT 96
[2023-12-20 04:06] VITALS: BP 126/75; PULSE 68; RESP 17; O2SAT 98
[2023-12-20] MEDS: Omeprazole 20 MG CAPSULE.DR PO (06:44)
[2023-12-20] MEDS: Sennosides 8.6 MG TABLET PO (08:56)
[2023-12-20] MEDS: Acetaminophen 325 MG TABLET 650 MG PO (08:56)
[2023-12-20] MEDS: Docusate Sodium 100 MG CAPSULE PO (08:57)
[2023-12-20] MEDS: Lactulose 20 GM/30 ML SOLUTION 10 GM PO (08:57)
[2023-12-20] MEDS: Escitalopram Oxalate 20 MG TABLET PO (08:57)
[2023-12-20] MEDS: oxyCODONE HCl Immed Release 5 MG TABLET PO (09:00)
[2023-12-20] MEDS: Megestrol Acetate 20 MG TABLET PO (09:07)
--- NOTE | 2023-12-20 09:26 | PHA.MEDREC ---
Addendum entered by Juan Ontiveros RPh 12/20/23 10:13: Reviewed by [facility] Original Note: Pharmacy Consult ? Medication Reconciliation Pharmacy has completed the medication reconciliation. Confirmed medications with list provided by Rikki De La Torre at [facility].
[2023-12-20] MEDS: LORazepam 0.5 MG TABLET PO (12:26)
[2023-12-20 12:42] VITALS: BP 124/81; PULSE 85; RESP 18; TEMP 36.6; O2SAT 98
[2023-12-20 14:32] VITALS: BP 124/81; PULSE 85; RESP 18; TEMP 36.6; O2SAT 98
== END 2023-12-20 12:55 | disposition home or self-care (01) ==
PROVIDERS: Physician Assistant Medical; Emergency Provider Internal Medicine; PCP Internal Medicine
DX: S12.400A Unspecified displaced fracture of fifth cervical vertebra, initial encounter for closed fracture (principal); S12.500A Unspecified displaced fracture of sixth cervical vertebra, initial encounter for closed fracture; R41.82 Altered mental status, unspecified; R94.31 Abnormal electrocardiogram [ECG] [EKG]; W18.30XA Fall on same level, unspecified, initial encounter; Y93.89 Activity, other specified; Y92.098 Other place in other non-institutional residence as the place of occurrence of the external cause; Y99.8 Other external cause status; Z03.818 Encounter for observation for suspected exposure to other biological agents ruled out; Z79.899 Other long term (current) drug therapy
CPT/HCPCS: 0241U; 36415; 80048; 80076; 81001; 82140; 83735; 84484; 85025; 93005; 99284

== ENCOUNTER 2024-01-16 18:24 | Emergency (ER) | payer OTHER, MEDICARE, SELFPAY ==
--- NOTE | ~2024-01-16 | CT_ITS ---
EXAMINATION: CT HEAD WITHOUT CONTRAST CT CERVICAL SPINE WITHOUT CONTRAST CLINICAL INFORMATION: Multiple falls. Prior traumatic cervical spine injury and vertebral artery injury. COMPARISON: CT imaging from 12/17/2023. TECHNIQUE: Contiguous axial imaging was performed from the skullbase to vertex without intravenous administration of contrast. Multidetector helical imaging was performed through the cervical spine. This CT examination was performed using dose optimization techniques as appropriate, variously including the following: *Automated exposure control *Adjustment of mA and/or kV according to patient size (this includes techniques or standardized protocols for targeted exams where dose is matched to indication/reason for exam; i.e. extremities or head) *Use of iterative reconstruction technique DLP: 339, 812 mGy-cm. FINDINGS: HEAD: There is no evidence of acute intracranial hemorrhage or territorial infarction. There is a new left cerebral convexity low-density subdural collection measuring up to 9 mm in short axis dimension with resultant partial left cerebral sulcal effacement. There is also a new 4 mm rightward midline shift of structures. A smaller right frontal low-density subdural collection is slightly less conspicuous compared to the previous exam. Ventricular size is normal. Mild chronic white matter microangiopathy again evident. There is also a smaller 3 mm thick right parafalcine low density subdural collection, new from prior imaging. There is an additional new 9 mm low-density subdural collection in the posterior fossa on the left side around the left cerebellar hemisphere. The osseous structures and soft tissues are normal. The mastoid air cells and visualized portions of the paranasal sinuses are well aerated. CERVICAL SPINE: There is now a significant leftward curvature of the cervical spine centered at the C5-C6 level with worsened abnormal widening of the disc space on the left side. Mild anterolisthesis also again evident this level. There is significant distraction of the left C5-C6 facet joint, new when compared to prior imaging. Avulsion fractures affecting of the anteroinferior wall of the left C5 transverse foramen again visible. Further impaction of the right inferior articular process of C5 on the fractured right superior articular process of C6 again noted with severe narrowing of the right C5-C6 neural foramen. The knight of the right transverse foramen at this level are fractured and disrupted, as on prior imaging. Malalignment on the right side has worsened with further anterior migration of the right articular process of C5 relative to the right C6 articular process. Significant narrowing of the right C6-C7 neural foramen also evident. Comminuted fracture involving the right C6 transverse process again evident. Moderate multilevel cervical spondylosis again visible with hypertrophic facet arthropathy. No compression fractures. The atlantoaxial articulation is normally maintained. The paraspinal soft tissues are grossly unremarkable, though limited for assessment due to paucity of fat and motion artifacts. The lung apices are clear. CT/CT cervical spine wo IV con IMPRESSION: 1. No acute intracranial hemorrhage or territorial infarction. New low-density left cerebral convexity and left posterior fossa subdural hygromas measuring up to 9 mm in short axis dimension. New mild rightward midline shift of structures. New small right parafalcine low density subdural collection. Slightly less conspicuous appearance of the previously described right frontal convexity subdural hygroma. 2. Severe leftward curvature of the cervical spine centered at the C5-C6 level with worsened abnormal widening of the disc space level in the left side. Mild anterolisthesis is slightly increased. New disruption and abnormal widening of the left C5-C6 facet joint. Multiple fractures again visible affecting the left C5 transverse foramen bony knight and right superior articular process of C6. 3. Significant narrowing of the C5-C6 right neural foramen. Reidentified fractures of the right C6 transverse process and bony knight of the right transverse foramen at the C6 level. Further malalignment with anterior migration of the right articular process of C5 relative to the right C6 articular pillar. 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 Given further traumatic findings, new or worsened vascular injury cannot be ruled out in the right or left cervical vertebral arteries. Consider CT angiography in follow-up for further evaluation. Imaging findings reported to Dr. Castillo at 9:15 PM on 01/16/2024. Electronically signed by: Petey Ansari MD 01/16/2024 09:19 PM EDT
[2024-01-16 18:29] VITALS: BP 115/69; BP 115/78; PULSE 102; PULSE 86; RESP 16; TEMP 36.3; O2SAT 99; BMI 13.7
[2024-01-16 18:37] VITALS: TEMP 37.6
--- NOTE | 2024-01-16 18:47 | MHC.EDTECH ---
Patient biba from snf ,patient was change into hospital attire ,vitals taken ,all safety measure in place .
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
--- NOTE | 2024-01-16 19:47 | ED_ITS ---
HPI - Fall General Chief Complaint: Fall Stated Complaint: multiple falls Time Seen by Provider: 01/16/24 18:58 Source: EMS and RN notes reviewed Mode of arrival: EMS Limitations: altered mental status History of Present Illness ED Provider: stuart DICKSON Narrative: Patient has significant dementia with Parkinson disease was not hospice care with frequent falls comes here for CT scan of the head as patient has had multiple falls no further management indicated as patient isn't hospice care hospice care was revoked only for head CT scan superficial abrasion to the left forehead was noticed Related Data Home Medications ?Medication ?Instructions ?Recorded ?Confirmed docusate sodium 100 mg capsule 100 mg PO TID Constipation 09/29/23 12/20/23 lactulose 10 gram/15 mL oral 10 g PO DAILY PRN Constipation 09/29/23 12/20/23 solution megestrol 20 mg tablet 20 mg PO BID 09/29/23 12/20/23 omeprazole 20 mg capsule,delayed 20 mg PO DAILY@0630 09/29/23 12/20/23 release ondansetron 4 mg disintegrating 4 mg translingual Q12H PRN Nausea 09/29/23 12/20/23 tablet sennosides 8.6 mg tablet (senna) 8.6 mg PO BID 09/29/23 12/20/23 escitalopram oxalate 20 mg tablet 20 mg PO DAILY 12/17/23 12/20/23 mirtazapine 15 mg tablet 15 mg PO BEDTIME anxiety 12/18/23 12/20/23 melatonin 3 mg tablet 3 mg PO BEDTIME PRN Sleep 12/19/23 12/20/23 acetaminophen 325 mg tablet 650 mg PO Q6H PRN Pain/ Temp 12/20/23 12/20/23 bisacodyl 10 mg rectal suppository 10 mg AZ DAILY PRN If MoM 12/20/23 12/20/23 (OneLAX Bisacodyl) Ineffective docusate sodium 100 mg capsule 100 mg PO DAILY Constipation 12/20/23 12/20/23 lorazepam 0.5 mg tablet 0.5 mg PO Q4H PRN Anxiety 12/20/23 12/20/23 lorazepam 0.5 mg tablet 0.5 mg PO TID Anxiety 12/20/23 12/20/23 magnesium hydroxide 400 mg/5 mL 30 ml PO DAILY PRN constipation If 12/20/23 12/20/23 oral suspension (Milk of Magnesia) No BM In 48 Hours morphine 10 mg capsule,extended 10 mg PO BID 12/20/23 12/20/23 release pellets oxycodone 5 mg tablet 5 mg PO Q8H PRN Pain (Scale Score 12/20/23 12/20/23 7-10) risperidone 0.25 mg tablet 0.25 mg PO DAILY 12/20/23 12/20/23 sodium phosphates 19 gram-7 118 ml AZ DAILY PRN constipation 12/20/23 12/20/23 gram/118 mL enema (Fleet Enema) If Bisacodyl Ineffective tuberculin PPD 5 tub. unit/0.1 mL 0.1 ml intradermal BEDTIME 12/20/23 12/20/23 intradermal injection solution (Tubersol) Allergies Allergy/AdvReac Type Severity Reaction Status Date / Time No Known Allergies Allergy Verified 01/16/24 18:32 Review of Systems 2 Review of Systems: Yes Unobtainable due to mental status PMFSH Past Medical History Medical History Mild cognitive disorder MARTY (generalized anxiety disorder) MDD (major depressive disorder), single episode with atypical features Parkinsonism Abdominal pain, epigastric Surgical History Hx of colonoscopy Hx of tonsillectomy Social History Social History Household Members: Family Housing: House Do you presently have visiting nurse or other home services: No Unable to assess alcohol history related to: Unable to respond Alcohol intake: never Patient Tobacco Use Status: Never used Tobacco Smoked in Last 30 Days: No Use of substances other than those prescribed or required for medical reasons: No Advance Directives: Yes Advance Directives on File: Yes Advance Directives Date on File: 03/12/23 Sexual orientation: Straight/Heterosexual Physical Exam 2 Vital Signs: Vital Signs: Last Vital Signs Temp 97.2 F 01/16/24 23:18 Pulse 87 01/16/24 23:18 Resp 15 01/16/24 23:18 BP 128/89 01/16/24 23:18 Pulse Ox 96 01/16/24 23:18 O2 Del Method Room Air 01/16/24 23:18 BMI result Body Mass Index 13.7 Appearance: Alert. And awake severely demented kyphotic emaciated No acute distress. Eyes: PERRLA, ENT: Pharynx normal. Oral Mucosa moist abrasion to left forehead Neck: Normal inspection. Neck supple. CVS: Normal heart rate and rhythm. Pulses normal. Respiratory: No respiratory distress. Equal air entry bilateral, no wheezing/rales/rhonchi Abdomen: Soft and nontender. Bowel sounds are present, Skin: Skin warm and dry. Multiple age bruises Extremities: No lower extremity edema. No calf tenderness Neuro: Severely dementia nonverbal Medications Administered Discontinued Medications Generic Name Dose Route Start Last Admin Trade Name Freq PRN Reason Stop Dose Admin Sodium Chloride 1,000 mls @ 999 mls/hr 01/16/24 21:59 01/17/24 00:17 Ns IV 01/16/24 22:59 Infused .Q1H1M ONE Infusion Lorazepam 1 mg 01/16/24 22:48 01/16/24 23:02 Lorazepam 2 Mg/Ml Vial IVPUSH 01/16/24 22:49 1 mg ONCE ONE Administration Medical Decision Making Medical Decision Making MDM Narrative: Patient's hospice care with significant dementia and Parkinson disease with C6 transverse process fracture which was seen in 12/17/2023 patient is wearing the soft collar, patient's is not satisfied from the dementia unit as patient fell 9 times in last 5 days does have night private sitter and during that patient does not fall will consult case management for placement Lab Data [facility] Lab Attestation statement: I reviewed the patient's lab results. 01/16/24 22:58 01/16/24 22:58 Labs: Lab Results 01/16/24 01/16/24 Range/Units 22:58 23:06 WBC 9.6 (4.8-10.8) X10*3/uL RBC 4.03 L (4.60-5.80) X10*6/uL Hgb 12.7 L (14.0-18.0) g/dl Hct 37.4 L (42.0-52.0) % MCV 92.8 (80.0-98.0) fL MCH 31.5 (27.0-33.0) pg MCHC 34.0 (31.0-36.0) g/dl RDW 12.7 (11.0-16.0) % Plt Count 282 D (160-400) X10*3/uL MPV 8.6 L (9.4-12.4) fL Immature Gran % (Auto) 0.5 H (0.0-0.4) % Neut % (Auto) 73.6 H (45-73) % Lymph % (Auto) 15.8 L (20-40) % [place] % (Auto) 9.9 (2-11) % Eos % (Auto) 0.1 (0-4) % Baso % (Auto) 0.1 (0-2) % Lymph # (Auto) 1.5 (1.2-4.9) X10*3/uL [place] # (Auto) 1.0 (0.1-1.2) X10*3/uL Eos # (Auto) 0.0 (0.0-0.4) X10*3/uL Baso # (Auto) 0.0 (0.0-0.2) X10*3/uL Abs Immat Gran (auto) 0.05 H (0.00-0.03) X10*3/uL Absolute Neuts (auto) 7.0 (2.0-8.3) x10*3/uL Absolute Nucleated RBC 0.000 (0.0-0.012) X10*3/uL Nucleated RBC % (auto) 0.0 (0.0-0.2) /100WBC Sodium 139 (135-145) mmol/L Potassium 4.1 (3.3-5.1) mmol/L Chloride 106 (96-108) mmol/L Carbon Dioxide 21 L (22-29) mmol/L Anion Gap 16 (12-20) BUN 28 H (9-16) mg/dL Creatinine 0.93 (0.5-1.4) mg/dL Estim Creat Clear Calc 46.4 Estimated GFR > 60 Random Glucose 93 (60-115) mg/dL Calcium 9.4 (8.4-10.2) mg/dL Magnesium 2.3 (1.6-2.6) mg/dL Total Bilirubin 0.6 (0.0-1.0) mg/dL AST 19 (5-37) U/L ALT 16 (0-40) U/L Alkaline Phosphatase 73 (39-117) U/L Total Protein 6.1 L (6.5-8.0) g/dL Albumin 3.6 (3.5-5.0) g/dL Urine Color Dark Yellow Urine Appearance Clear Urine pH 5.5 (5.0-9.0) Ur Specific [place] 1.025 (1.005-1.025) Urine Protein 30 (1+) H (Neg-Trace) mg/dL Urine Glucose (UA) Negative (Negative) mg/dL Urine Ketones 40 (Negative) mg/dL Urine Blood Negative (Negative) Urine Nitrite Negative (Negative) Ur Leukocyte Esterase Negative (Negative) Urine RBC 0-2 (0-2) /HPF Urine WBC 0-5 (0-5) /HPF Ur Squamous Epith Cells 0-2 (0-2) /HPF Urine Bacteria None Seen (None Seen) Hyaline Casts 3-5 (0-2) /LPF Independent Interpretation I performed an independent interpretation of an: EKG Interpretation: Normal sinus rhythm heart rate 88 beats per minute left axis deviation no acute ST-T changes no acute ischemia Discharge Plan Discharge Clinical Impression: Dementia associated with Parkinson disease Patient Disposition: Still a Patient Prescriptions: No Action lactulose 10 gram/15 mL Solution 10 g PO DAILY PRN (Reason: Constipation) ondansetron 4 mg tablet,disintegrating 4 mg translingual Q12H PRN (Reason: Nausea) megestrol 20 mg Tablet 20 mg PO BID docusate sodium 100 mg Capsule 100 mg PO TID sennosides [senna] 8.6 mg Tablet 8.6 mg PO BID omeprazole 20 mg capsule,delayed release(DR/EC) 20 mg PO DAILY@0630 escitalopram oxalate 20 mg tablet 20 mg PO DAILY mirtazapine 15 mg tablet 15 mg PO BEDTIME melatonin 3 mg Tablet 3 mg PO BEDTIME PRN (Reason: Sleep) Tubersol 5 tub. unit /0.1 mL Solution 0.1 ml INTRADERMAL BEDTIME Rx Instructions: to rule out TB until 12/28/23 acetaminophen 325 mg Tablet 650 mg PO Q6H PRN (Reason: Pain/ Temp) risperidone 0.25 mg Tablet 0.25 mg PO DAILY lorazepam 0.5 mg tablet 0.5 mg PO Q4H PRN (Reason: Anxiety) lorazepam 0.5 mg tablet 0.5 mg PO TID magnesium hydroxide [Milk of Magnesia] 400 mg/5 mL Suspension 30 ml PO DAILY PRN (Reason: constipation If No BM In 48 Hours) bisacodyl [OneLAX Bisacodyl] 10 mg suppository 10 mg AZ DAILY PRN (Reason: If MoM Ineffective) Fleet Enema 19-7 gram/118 mL enema 118 ml AZ DAILY PRN (Reason: constipation If Bisacodyl Ineffective) oxycodone 5 mg Tablet 5 mg PO Q8H PRN (Reason: Pain (Scale Score 7-10)) morphine [Michelle] 10 mg Capsule,Extend.Release Pellets 10 mg PO BID docusate sodium 100 mg Capsule 100 mg PO DAILY Print Language: [place]
[2024-01-16 20:16] VITALS: BP 107/67; PULSE 86; RESP 16; TEMP 36.8; O2SAT 97
--- NOTE | 2024-01-16 21:03 | PC.NURSE ---
pt resting comfortable with eyes closed, breathing even and unlabored. no apparent distress noted at this time, call santacruz w/in reach. visitor at bedside
--- NOTE | 2024-01-16 22:00 | ECG_ITS ---
Test Reason : FALL Blood Pressure : / mmHG Vent. Rate : 088 BPM Atrial Rate : 088 BPM P-R Int : 130 ms QRS Dur : 084 ms QT Int : 394 ms P-R-T Axes : 000 -73 068 degrees QTc Int : 476 ms Poor data quality, interpretation may be adversely affected Normal sinus rhythm Left axis deviation Abnormal ECG When compared with ECG of 19-DEC-2023 16:53, No significant change was found Referred By: Alexei Nava Electronically Signed By:TONY PNIEDA
[2024-01-16 22:07] VITALS: BP 106/76; PULSE 91; RESP 16; TEMP 36.6; O2SAT 97
--- NOTE | 2024-01-16 22:09 | MHC.CM.ED ---
CM met with patient and at bedside. Pt did not participate in interview. Pt was sleeping. Smita HCP/ ([phone]). HCP on file. Pt lives at [facility]. Per Smita, her has fallen multiple times since being at the [facility], as he forgets he can not walk or support himself. Smita tells CM that she has private pay help overnight. She tells CM that her is at level 1-2 for care and meds. She tells CM that the [facility] has 7 levels of care. She is very worried about her and that he has safe care. The patient was on hospice care at the facility provided by [facility]. She is aware that his hospice has been revoked. According to primary RN who spoke with hospice, the hospice will be re-instated when he returns to the facility. is undergoing chemotherapy and will have a bilateral mastectomy in 3 weeks. She is unable to care for her at this time. She asked about other [facility] that provide levels of dementia care. Small list given. CM spoke with at length regarding care options, including speaking to the nursing administrator at the [facility] about advancing level of care needs, considering private pay for during the day (she pay for night care), private pay LTC or considering another [facility]. CM also spoke to her about her own health and that perhaps if additional care arrangements can be made at the [facility], that might be the plan moving forward until after her surgery and recovery. She wants her comfortable. Plan of care: will speak with nursing administrator tomorrow 01/16 about advanced care at the [facility]. She will return in the morning and meet with CM to discuss plan of care. CM will reach out to [facility] via [facility] with plan of care. Patient will remain overnight. Dr Nava aware and agreeable with plan. Primary RN aware.
[2024-01-16] MEDS: 0.9 % Sodium Chloride 1,000 ML 999 ML IV (23:02)
[2024-01-16] MEDS: LORazepam 2 MG/ML VIAL 1 MG IVPUSH (23:02)
[2024-01-16 23:03] LABS: MANUAL DIFF FLAG NO
[2024-01-16 23:04] LABS: Basophils Percent Auto 0.1 % (0-2); Eosinophils Percent Auto 0.1 % (0-4); Hematocrit 37.4 % (42.0-52.0); Hemoglobin 12.7 g/dl (14.0-18.0); Imm Gran Abs Auto 0.05 X10*3/uL (0.00-0.03); Imm Gran Pct Auto 0.5 % (0.0-0.4); Lymphocytes Absolute Auto 1.5 X10*3/uL (1.2-4.9); Lymphocytes Percent Auto 15.8 % (20-40); Mean Corpuscular Hemoglobin 31.5 pg (27.0-33.0); Mean Corpuscular Volume 92.8 fL (80.0-98.0); Mean Platelet Volume 8.6 fL (9.4-12.4); Monocytes Percent Auto 9.9 % (2-11); Neutrophils Percent Auto 73.6 % (45-73); Platelet Count 282 X10*3/uL (160-400); Red Blood Count 4.03 X10*6/uL (4.60-5.80); Red Cell Distribution Width 12.7 % (11.0-16.0); White Blood Count 9.6 X10*3/uL (4.8-10.8)
[2024-01-16 23:18] VITALS: BP 128/89; PULSE 87; RESP 15; TEMP 36.2; O2SAT 96
[2024-01-16 23:18] LABS: Alanine Aminotransferase 16 U/L (0-40); Albumin Level 3.6 g/dL (3.5-5.0); Alkaline Phosphatase 73 U/L (39-117); Anion Gap 16 (12-20); Aspartate Amino Transferase 19 U/L (5-37); Bilirubin Total 0.6 mg/dL (0.0-1.0); Blood Urea Nitrogen 28 mg/dL (9-16); Calcium 9.4 mg/dL (8.4-10.2); Carbon Dioxide 21 mmol/L (22-29); Chloride 106 mmol/L (96-108); Creatinine Clr Calc Pharmacy 46.4; Estimated Glomerular Filt Rate > 60; Glucose Random 93 mg/dL (60-115); Magnesium 2.3 mg/dL (1.6-2.6); Potassium 4.1 mmol/L (3.3-5.1); Sodium 139 mmol/L (135-145); Total Protein 6.1 g/dL (6.5-8.0)
[2024-01-16 23:20] LABS: Appearance Urine Clear; Color Urine Dark Yellow; Glucose Urine UA Negative (Negative); Leukocyte Esterase Urine Negative (Negative); Nitrite Urine Negative (Negative); PH 5.5 (5.0-9.0); Specific Gravity - Urine 1.025 (1.005-1.025); UMIC TRIGGER UACC YES; Urine Blood Negative (Negative); Urine Ketones 40 mg/dL (Negative); Urine Protein 30 (1+) mg/dL (Neg-Trace)
--- NOTE | 2024-01-16 23:20 | MHC.EDTECH ---
Patient was moved into a hospital bed ,Patient was assisted to use the urinal ,void 450 ml ,urine sample collected ,blood drawn and sent to lab ,ekg taken and was read by Provider ,Patient belongings list done ,All belongings at bedside Patient has multiple abrasions all over his body ,RN aware ,Patient was here for a visit just left .
[2024-01-16 23:22] LABS: Bacteria Urine None Seen (None Seen); RBC Urine 0-2 /HPF (0-2); Squamous Epithelial Cell Urine 0-2 /HPF (0-2); WBC Urine 0-5 /HPF (0-5)
--- NOTE | 2024-01-16 23:52 | MHC.EDTECH ---
Telle sitter camera was placed in patient room for safety .
--- NOTE | 2024-01-17 02:38 | MHC.EDTECH ---
0200 rounding Patient clean and dry and sleeping .Telle sitter camera in Pt room .
--- NOTE | 2024-01-17 04:20 | MHC.EDTECH ---
0400 rounding done ,Patient sleeping ,no apparent distress noted ,all safety measure in Place .
[2024-01-17 06:13] VITALS: BP 90/60; PULSE 84; RESP 16; TEMP 36.3; O2SAT 97
--- NOTE | 2024-01-17 07:28 | MHC.EDTECH ---
this tech assumed care of pt at 0645, pt is asleep in stretcher, all needs are met.
--- NOTE | 2024-01-17 08:49 | PC.NURSE ---
Pt continues to sleep this morning, will assist with breakfast when awake. Breathing even and unlabored. Per CM, plan is possibly to go back to [facility] today, is discussing levels of care there. CM will update as applicable.
--- NOTE | 2024-01-17 10:27 | MHC.CM.ED ---
Addendum entered by Silvia Seymour 01/17/24 11:04: Received notification from [facility] , that patient's Smita, is requesting referral to [facility] on [address]. Referral will be sent to [facility] and then referred locally if [facility] does not have a bed available. Original Note: Patient remains in ER overflow. Patient's , Smita, at bedside. She is expecting [facility] to return her telephone call about her around 1030am. Per [facility], patient will be able to return to their services. Continue to monitor for d/c needs.
--- NOTE | 2024-01-17 10:54 | PC.NURSE ---
at bedside, feeding pt pudding and water, pt tolerating well.
--- NOTE | 2024-01-17 13:19 | MHC.CM.ED ---
Received telephone call from Adelaide, Veneer Taper at [facility]. They do not feel patient's anxiety is being managed appropriately at this time. Asking for klonopin or trazodone. Per ELZA Steel of [facility], Dr Hawthorne made changes to oxycodone and ativan yesterday. But they had not been implemented at [facility] yet. Oxycodone and Ativan ordered by Hilda as recommended by Dr Hawthorne. Now dose will be given. Attempted to realy this information to Adelaide of [facility]. Left message requesting return telephone call. Received telephone call from patient's , Smita, stating the plan is for patient to [facility]. Continue to monitor for d/c needs.
--- NOTE | 2024-01-17 13:38 | PC.NURSE ---
Pt sleeping and appears comfortable at this time, will give Ativan when pt awakes.
[2024-01-17] MEDS: LORazepam 0.5 MG TABLET PO ×3 (13:57→23:41)
[2024-01-17 14:00] VITALS: BP 136/85; PULSE 89; RESP 20; TEMP 37.2; O2SAT 96
--- NOTE | 2024-01-17 14:44 | PC.NURSE ---
Pt does well with icecream and puddings, needs assistance eating. Medicated with ativan for restlessness. Will continue to monitor
[2024-01-17 14:46] LABS: Oxycodone Screen Urine Positive (Not Detect)
--- NOTE | 2024-01-17 16:09 | PC.NURSE ---
Pt noted to be more restless, trying to get out of bed. Pt medicated per MAR with PRN Ativan, will continue to monitor.
--- NOTE | 2024-01-17 17:04 | MHC.EDTECH ---
this tech and FELICIANO Ramírez have redirected pt to stay in the bed so he does not fall, mostly responds to redirection. Pt given water and some spoonfuls of his dinner and pudding, pt stated he was full after a couple bites. clean bed linens in place and vitals were taken
--- NOTE | 2024-01-17 20:13 | MHC.CM.ED ---
CM received telephone call from Smita, patient's . She spoke with Adelaide, director at [facility]. Medication changes have been made by Hospice/PCP and dosing. Smita believes patient can return to [facility], but is unsure of when. NELLIE called and felt a message with Adelaide, Director regarding when patient can be transport back to facility. CM will need to reach out tomorrow for transport time. WIll need BLS transport. Please call Smita with arrangements tomorrow.
[2024-01-17] MEDS: LORazepam 1 MG TABLET PO (20:20)
[2024-01-17] MEDS: oxyCODONE HCl Immed Release 5 MG TABLET PO (20:20)
[2024-01-18] MEDS: oxyCODONE HCl Immed Release 5 MG TABLET PO ×2 (04:19→10:21)
[2024-01-18 04:41] VITALS: BP 140/86; PULSE 87; RESP 20; TEMP 36.7; O2SAT 96
--- NOTE | 2024-01-18 08:30 | MHC.CM.ED ---
Addendum entered by Ellen Oconnor 01/18/24 12:08: Discussed pt's return w/[facility] Director Adelaide. Call placed to pt's spouse Smita to inform her that pt will return via [facility] at 1:30pm. [facility] will see pt this evening between 4:30 and 5pm. Pt has privately hired [employer] for the overnights. This was also relayed to Adelaide at [facility]. Smita and Adelaide were informed of pt's Lorazepam and Oxycodone changes. ED care team aware of d/c plan. Original Note: Call placed to [facility] Director Adelaide - message left requesting a call back for arrangements of pt's return.
--- NOTE | 2024-01-18 08:46 | PHA.MEDREC ---
Pharmacy Consult ? Medication Reconciliation Pharmacy has reviewed the medication reconciliation completed by Diana. Patient taking Mirtazepine 15 mg 2 tablet at bedtime instead of 1 tablet. Isela Workman, GeoffD
[2024-01-18 10:00] VITALS: BP 131/83; PULSE 77; RESP 14; TEMP 36.4; O2SAT 99
[2024-01-18] MEDS: LORazepam 1 MG TABLET PO (10:21)
[2024-01-18] MEDS: Omeprazole 20 MG CAPSULE.DR PO (10:22)
[2024-01-18] MEDS: Sennosides 8.6 MG TABLET PO (10:22)
[2024-01-18] MEDS: Docusate Sodium 100 MG CAPSULE PO (10:22)
--- NOTE | 2024-01-18 10:43 | PC.NURSE ---
patient ate all of his pudding from his breakfast tray. medicated per the MAR w/ pills crushed in the pudding. patient changed and repositioned in the bed. attempts to get out of bed slowly, bed alarm remains on. awaiting dispo.
[2024-01-18 14:00] VITALS: BP 147/96; PULSE 90; RESP 18; O2SAT 98
[2024-01-18] MEDS: LORazepam 0.5 MG TABLET PO (14:00)
[2024-01-18 16:20] VITALS: BP 147/96; PULSE 90; RESP 18; TEMP 36.4; O2SAT 98
== END 2024-01-18 16:20 | disposition skilled nursing facility (03) ==
PROVIDERS: Physician Assistant Medical; Emergency Provider Internal Medicine; PCP Internal Medicine
DX: S00.81XA Abrasion of other part of head, initial encounter (principal); W19.XXXA Unspecified fall, initial encounter; Y93.9 Activity, unspecified; Y92.9 Unspecified place or not applicable; Y99.9 Unspecified external cause status; G20.A1 Parkinson's disease without dyskinesia, without mention of fluctuations; F02.80 Dementia in other diseases classified elsewhere, unspecified severity, without behavioral disturbance, psychotic disturbance, mood disturbance, and anxiety; Z79.899 Other long term (current) drug therapy
CPT/HCPCS: 36415; 70450; 72125; 80053; 80307; 81001; 83735; 85025; 93005; 96361; 96374; 99285; J2060